=== PATIENT | female | born 1965 | race Caucasian/White ===

== ENCOUNTER 2024-03-26 23:51 | Inpatient (IN) | payer OTHER, SELFPAY ==
[2024-03-26 17:51] VITALS: BMI 31.9
[2024-03-26 18:25] VITALS: BP 181/98
--- NOTE | 2024-03-26 18:27 | ED.PDOC.TRB ---
ED Provider Triage
-
Patient seen by provider in Triage?: Seen in Triage
*Initial assessment in triage to expedite evaluation/workup
59 yo female presenting with shortness of breath on and off x 3 weeks. Finished prednisone taper 7-10 days ago. Reports SOB and fogginess, no chest pain. Using nebs at home without relief. Former smoker.
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
On Trelegy 200 daily
She is tachypneic with conversational dyspnea, room air sats 77%. Grossly diminished lung sounds with quiet expiration wheezing.
Will order for nebs, labs, CXR
[2024-03-26 19:24] LABS: Blood Urea Nitrogen 6 mg/dl (7-17); Calcium 9.1 mg/dl (8.4-10.2); Carbon Dioxide 26 mmol/L (22-30); Chloride 81 mmol/L (98-107); Glucose 116 mg/dl (70-99); eGFR > 60.00
[2024-03-26 19:28] LABS: Sodium 118 mmol/L (135-145)
[2024-03-26 19:46] VITALS: BP 171/97
[2024-03-26] MEDS: ATROVENT NEBULES 1 MG INH (19:51)
[2024-03-26] MEDS: VENTOLIN NEBULES 10 MG INH (19:51)
[2024-03-26 20:00] VITALS: BP 163/78
--- NOTE | 2024-03-26 20:09 | ED.GENMED ---
History of Present Illness
General
Chief Complaint: Breathing Problem
Source: patient
Time Seen by Provider: 03/26/24 19:40
Travel History
Have you had any contact with someone who has COVID-19?: No
Do you have any symptoms of coronavirus? Fever > 100 degrees, chills, cough, shortness of breath, sore throat, loss of taste or smell, muscle aches, or headache?: No
History of Present Illness
History of Present Illness:
59-year-old female presents to the emergency room complaining of shortness of breath. Patient has been feeling short of breath for the past couple weeks. She was seen by her primary care doctor and started on a course of steroids which she
completed about a week ago. She is also been using her rescue inhaler of albuterol without much improvement. Today the patient was feeling so short of breath that she decided she had to come to the emergency room. Symptoms are worse with minimal
exertion. She denies any chest pain or pain with deep inspiration. She denies any recent travel. Patient had a mildly productive cough 2 weeks ago but that production went away. No fever.
Past History
Past History
ED Past Medical History: HTN
ED Past Surgical History: Appendectomy and Orthopedic
Social History
Tobacco: Smoker
Employment: Employed
Family History
Family History: Negative Early CAD
Phy Exam
Physical Exam
Physical Exam:
General: Awake, Alert, Oriented X3. Patient seen after coming out of the bathroom and she is noted to be profoundly cyanotic..
Vitals: Tachycardic, initial pulse ox 60% with good pleth
Head: Atraumatic
Eyes: Pupils equal, EOMI
Throat: Airway intact, no exudates
Neck: Trachea midline
Lungs: Expiratory wheezing, decreased breath sounds bilaterally
Heart: Regular rate, no murmurs
Abd: Soft, Nontender, No pulsatile mass
Neuro: Nonfocal
Skin: Warm, dry, no rash, cyanosis
Extremities: pulses equal b/l, 1+ edema
Scores
Heart Failure Risk
Heart Failure Risk Score: Not Applicable
Course
Orders/Labs/Results
Orders:
Orders
03/26/24 18:29
Albuterol Sulfate [Ventolin Nebules] 10 mg INH R NOW STA
Ipratropium Nebs [Atrovent Nebules] 1 mg INH R NOW STA
CR Chest - 2 Views Urgent
Comment:
Reason For Exam: SOB
03/26/24 18:44
Basic Metabolic Panel Urgent
03/26/24 19:54
Ipratropium Nebs [Atrovent Nebules] 0.5 mg .ROUTE .STK-MED ONE
Ipratropium/Albuterol Sulfate [Duoneb] 3 ml INH R NOW ONE
Ipratropium/Albuterol Sulfate [Duoneb] 3 ml INH R NOW STA
03/26/24 19:55
Dexamethasone Sod Phosphate [Decadron] 10 mg IV NOW STA
03/26/24 20:03
Complete Blood Count/With Diff Urgent
D-Dimer Urgent
Osmolality, Random Urine Urgent
Date Specimen was Collected: 03/26/24
Time Specimen was Collected: 19:57
Potassium Urgent
Urinalysis Urgent
Date Specimen was Collected: 03/26/24
Time Specimen was Collected: 19:57
Urine Sodium Urgent
Date Specimen was Collected: 03/26/24
Time Specimen was Collected: 19:57
03/26/24 20:12
Electrocardiogram (*1) Urgent
Reason for Study: Shortness of Breath
EKG- Treatment ONCE
03/26/24 21:00
3% Sodium Chloride 250 ml [Sodium Chloride 3%] 250 ml IV ONCE
03/26/24 21:08
CT Chest Pe Study Urgent
Comment:
Reason For Exam: severe hypoxia
03/26/24 22:48
Azithromycin 500 mg/250 ml [Zithromax Infusion] 500 mg in 250 ml IV NOW
03/26/24 22:53
Add On- LAB Stat
Tests Added?: BNP
03/26/24 23:16
Admit/Transfer Patient As Directed
Co-Sign Provider:
Level of Care: Inpatient admission
Assign to:: Telemetry
Physician / Group: dolores
Diagnosis: COPD exacerbation
Reason for Telemetry: Arrhythmia
Date to Stop Telemetry: 03/29/24
Time to Stop Telemetry: 11:00
Reason for Hospitalization: copd exacerbation
Expected length of stay greater than two midnights?: Yes
ELOS- Estimated Length of Stay in days: 3
I certify the patient meets the requirements for IP care: Yes
03/26/24 23:17
Code Status As Directed
Resuscitation Status: Full Code
03/26/24 23:22
NEPHROLOGY CONSULT Routine
Consulting Provider: Acosta Juarez
Was physician already notified: Yes
03/26/24 23:40
Basic Metabolic Panel Routine
COVID-19 Antigen Stat
Source: Nasal Swab
NT-proBNP Routine
03/27/24 00:24
Acetaminophen [Tylenol] 650 mg PO Q4HPRN PRN
Ipratropium/Albuterol Sulfate [Duoneb] 3 ml INH R Q4HPRN PRN
03/27/24 00:24
Respiratory Culture/Gram Stain Routine
PALMER Source: Sputum
Specimen Description:
Activity As Directed
Activity Level: As Tolerated
Intake/ Output As Directed
Frequency: Per unit guidelines
Vital Signs As Directed
Frequency: Per unit guidelines
Copd Education [RESP] Routine
O2 Therapy [RESP] Routine
Titrate/Wean O2 to maintain O2 sat greater than (%): 92
Special Instructions: adjust, if necessary, to avoid hyperoxia in CO2 retainers.
Use High Flow O2 if necessary
Rx Pep / [place] [RESP] Routine
DX Deep Vein Thrombosis Video Routine
03/27/24 Breakfast
Cholesterol Lowering
Cholesterol Lowering: Sodium, 2 Gram
Basic Metabolic Panel IN AM
Complete Blood Count/With Diff IN AM
Dexamethasone Sod Phosphate [Decadron] 4 mg IV Q8H
03/27/24 08:00
Diltiazem Extended Release [Cardizem Cd] 240 mg PO DAILY
Guaifenesin [Mucinex] 600 mg PO Q12
Ipratropium/Albuterol Sulfate [Duoneb] 3 ml INH R QID
Lisinopril [Zestril] 10 mg PO DAILY
Tiotropium [place] 2.5 Mcg [Spiriva Respimat 2.5 Mcg] 2 puff INH R DAILY
03/27/24 18:00
Enoxaparin Sodium [Lovenox] 40 mg SC QPM
03/27/24 20:00
Azithromycin 500 mg/250 ml [Zithromax Infusion] 500 mg in 250 ml IV Q24H
03/28/24 06:00
Basic Metabolic Panel IN AM
Complete Blood Count/With Diff IN AM
03/29/24 06:00
Basic Metabolic Panel IN AM
Complete Blood Count/With Diff IN AM
03/29/24 11:00
DC Protocol for Telemetry ONCE
03/30/24 06:00
Basic Metabolic Panel IN AM
Complete Blood Count/With Diff IN AM
03/31/24 06:00
Basic Metabolic Panel IN AM
Complete Blood Count/With Diff IN AM
Abnormal Lab Results
03/26/24 03/26/24 03/26/24
18:44 20:03 23:40
RBC 5.88 H 10^6/uL
(4.20-5.40)
Hgb 20.6 H* g/dL
(12.0-16.0)
Hct 57.0 H %
(37.0-47.0)
MCH 35.0 H pg
(27.0-31.0)
Absolute Monos (auto) 1.0 H 10^3/uL
(0.1-0.6)
Immature Gran % 0.6 H %
(0-0.5)
Lymphocytes % 17.2 L %
(20.5-51.1)
Monocytes % 13.7 H %
(1.7-9.3)
D-Dimer 0.98 H ug/mlFEU
(0.00-0.50)
Sodium 118 L* mmol/L 126 L D mmol/L
(135-145) (135-145)
Chloride 81 L mmol/L 88 L mmol/L
(98-107) (98-107)
BUN 6 L mg/dl 5 L mg/dl
(7-17) (7-17)
Creatinine 0.4 L mg/dL 0.4 L mg/dL
(0.6-1.0) (0.6-1.0)
Glucose 116 H mg/dl 142 H mg/dl
(70-99) (70-99)
Urine Ketones Trace A
(Negative)
Urine Osmolality 49 L mOsm/kg
(300-900)
Urine Sodium 8 L mmol/L
(30-90)
03/26/24 20:03
03/26/24 23:40
Vital Signs
Initial and Last Documented VS:
Initial Vital Signs
Temp Pulse Resp BP Pulse Ox
98.3 F 98 18 181/98 79
03/26/24 18:25 03/26/24 18:25 03/26/24 18:25 03/26/24 18:25 03/26/24 18:25
Last Documented Vital Signs
Temp Pulse Resp BP Pulse Ox
98.3 F 98 20 163/78 90
03/26/24 18:25 03/26/24 23:45 03/26/24 23:45 03/26/24 20:00 03/26/24 23:45
MDM/Problems Addressed
Differential Diagnosis Includes:
COPD exacerbation, anemia, pulmonary embolism, pneumonia
MDM/Problems Addressed:
Patient presents with significant hypoxia and shortness of breath. Patient has been using rescue inhaler without much improvement at home. Here the patient was placed on nasal cannula oxygen and received neb treatments as well as IV steroids. She
did have some improvement but continued to have significant wheezing. CT of the chest was performed given her profound hypoxia which showed evidence of pulmonary hypertension. No PE. No infiltrate. Patient will require hospitalization for
further evaluation and management, supplemental oxygen, careful monitoring.
Chronic conditions affecting care: COPD
*Radiology
Radiology exam reviewed: radiology read reviewed
*Pulse Oximetry
Patient hypoxic: yes
*EKG
Interpreted by ED Provider?: Yes
Interpretation: abnormal
Heart Rate: 85
Rate: normal
Rhythm: sinus
[place]: right axis deviation
Ischemia: T-wave inversion (Inferior and anterior leads)
*Agricultural Inspector Interpretation
Rate: normal
Interpretation: normal
Rhythm: sinus
*Critical Care Note
Total Time (30-74mins, 75-104mins- exclusive of procedures): 35 min
comment:
Critical care statement: A total of 35 minutes of critical care time was provided for this patient. This includes management of unstable vital signs, evaluation of the patient at bedside, reviewing the patient's pertinent medical records, discussion
with consultants, review of old EKGs and review of pertinent medical records. This time with separate from time utilized to perform the aforementioned documented procedures
ED Attending Note
-
Portions of this chart may have been created with voice recognition software.� Occasional wrong word or��sound alike� substitutions may have occurred due to the inherent limitations of voice recognition software.
Discharge Plan
Departure
Patient Disposition: Admit
Date of Disposition: 03/26/24
Time of Disposition: 22:47
Admit to: IMU
Presentation/result/management discussed w/ accepting MD/DO: Hospitalist
Condition: Fair
Discharge Problem:
Hypoxia, COPD exacerbation, Acute hyponatremia
Interventions
Interventions:
*Risk Screen - Suicide Last Done: 03/26/24 22:50
*Neglect/Abuse Screening Last Done: 03/26/24 22:50
ED- Fall Risk Assessment Last Done: 03/26/24 20:03
*ED COVID-19 Vaccine History Last Done: 03/26/24 18:25
ED- Cardiac Assessment Last Done: 03/26/24 20:03
ED- Pulmonary Assessment Last Done: 03/26/24 20:03
[2024-03-26] MEDS: DECADRON 10 MG IV (20:11)
[2024-03-26 20:17] LABS: Urine Albumin Trace (Neg - Trace); Urine Bilirubin Negative (Negative); Urine Character Clear (Clear); Urine Color Straw; Urine Glucose Negative (Negative); Urine Ketone Trace (Negative); Urine Leukocyte Negative (Negative); Urine Nitrite Negative (Negative); Urine Occult Blood Negative (Negative); Urine Urobilinogen Negative (Neg - 1+)
[2024-03-26 20:29] LABS: % Basophils 0.7 % (0-2); % Eosinophils 0.7 % (0-6); % Immature Granulocytes 0.6 % (0-0.5); % Lymphocytes 17.2 % (20.5-51.1); % Monocytes 13.7 % (1.7-9.3); % Neutrophils 67.1 % (42.2-75.2); Absolute Basophils 0.1 10^3/uL (0-0.2); Absolute Eosinophils 0.1 10^3/uL (0-0.7); Absolute Lymphocytes 1.2 10^3/uL (1.2-3.4); Absolute Neutrophils 4.6 10^3/uL (1.4-6.5); D-Dimer 0.98 ug/mlFEU (0.00-0.50); Mean Corp Hgb Conc. 36.1 g/dL (33.0-37.0); Mean Corpuscular Volume 96.9 fL (81.0-99.0); Mean Platelet Volume 9.2 fL (7.4-10.4); Nucleated Red Blood Cells % 0 %; Platelet Count 143 10^3/uL (130-400); Red Blood Cell Count 5.88 10^6/uL (4.20-5.40); Red Cell Dist. Width 13.5 % (11.5-14.5); White Blood Cell Count 6.9 10^3/uL (4.8-10.8)
[2024-03-26 20:35] LABS: Hemoglobin 20.6 g/dL (12.0-16.0)
[2024-03-26 20:39] LABS: Potassium 4.5 mmol/L (3.5-5.1)
[2024-03-26 20:45] LABS: Urine Sodium 8 mmol/L (30-90)
[2024-03-26 20:50] LABS: Osmolality Urine 49 mOsm/kg (300-900)
[2024-03-26] MEDS: SODIUM CHLORIDE 3% 250 IV (21:09)
--- NOTE | 2024-03-26 22:48 | HPS.HSE ---
Family Physician
-
Family Physician: Nikhil Maher
Chief Complaint
-
sob
History of Present Illness
59-year-old female with PMH for HTN, atrial fib, COPD, athma, HTN, presents to the emergency room complaining of shortness of breath. Patient has been feeling intermittent short of breath for the past two weeks. her sob gets worse with higher
humidity outside/ since last , she is being very anxious and sob. her sob worse with activity. stated orthopnea. denied chest pain. stated non productive cough for few weeks. today it was productive with yellow sputum. denied fever, chill,
runny nose, congestion. denied abdominal pain,n,v, d. denied dysuria or hematuria. She was seen by her primary care doctor and started on a course of steroids which she completed about a week ago. She is also been using her rescue inhaler of
albuterol without much improvement. Today the patient was feeling so short of breath that she decided she had to come to the emergency room.
chest x ray with Mild congestive heart failure.Chronic obstructive pulmonary disease with centrilobular emphysema
chest CT with no pulmonary embolism
There is centrilobular emphysema
There is prominence of the main pulmonary artery suggesting possible pulmonary artery hypertension
There is a new 4 mm probably benign subpleural pulmonary nodule in the right upper lobe
received nebs, zithro, steroids in ER. admitting for further management.
Medical History
Past Medical History
Past Medical History: Reports Other
Additional Past Medical History:
Paroxysmal A-fib
COPD
Hypertension
Pericardial effusion
Past Surgical History: Reports Other
Additional Past Surgical History:
Bilateral ACL repair appendectomy
Social History
Tobacco: Former Smoker
Alcohol: Occasional
Drug: None
Employment: Employed
Family History
Family History: Not pertinent
Allergies / Home Medications
Allergies reflects when Allergies were last updated in [facility].
Home Medications with original date entered in [facility]
Allergy/Medication List:
Allergies
Allergy/AdvReac Type Severity Reaction Status Date / Time
No Known Allergies Allergy Unverified 03/26/24 18:27
Home Medications
albuterol sulfate 90 mcg/actuation aerosol inhaler 2 puff inhalation R Q4HPRN PRN sob 07/28/18
lisinopril 10 mg tablet 10 mg PO DAILY 07/28/18
diltiazem HCl 240 mg capsule,extended release 24 hr 240 mg PO DAILY ##30 08/03/18
cetirizine 10 mg tablet (Zyrtec) 10 mg PO DAILY 03/26/24
cetirizine 10 mg tablet (Zyrtec) 10 mg PO HS PRN allergies 03/26/24
fluticasone fur. 200 mcg-umeclid 62.5 mcg-vilant 25 mcg inhalat.powder (Trelegy Ellipta) 1 inh inhalation R DAILY 03/26/24
guaifenesin 600 mg tablet, extended release 12 hr (Mucus Relief ER) 600 mg PO BID 03/26/24
Review of Systems
-
Constitutional: Reports No Symptoms
EENT: Reports No Symptoms
Respiratory: Reports Cough and Trouble Breathing
Cardiac: Reports No Symptoms
Abdomen/GI: Reports No Symptoms
: Reports No Symptoms
Musculoskeletal: Reports No Symptoms
Skin: Reports No Symptoms
Neurological: Reports No Symptoms
Endocrine: Reports No Symptoms
Hematologic/Lymphatic: Reports No Symptoms
Psych: Reports No Symptoms
Physical Exam
Vital Signs
Vital Signs
Temp Pulse Resp BP Pulse Ox
98.3 F 91 26 163/78 91
03/26/24 18:25 03/26/24 22:35 03/26/24 22:35 03/26/24 20:00 03/26/24 22:35
Physical Exam
General: Well Developed, Well Nourished and No Apparent Distress
HEENT: NormoCephalic, Moist mucous membranes and Atraumatic
Respiratory: Clear and Wheezes
Cardiac: S1/S2 and Regular Rhythm; No Murmur or Rub
GI: Soft, Non Tender, Non Distended and Normal Bowel Sounds; No Organomegaly
Rectal: Deferred by Provider
Musculoskeletal: No Clubbing, No Cyanosis and No Edema
Skin: No Rash
Neuro: AO x 3 and Nonfocal/grossly intact
Psych: Calm
Laboratory Results
-
03/26/24 20:03
Laboratory Results
Total Bilirubin Cancelled 03/26/24 18:44
AST Cancelled 03/26/24 18:44
ALT Cancelled 03/26/24 18:44
Alkaline Phosphatase Cancelled 03/26/24 18:44
Data Reviewed
-
Diagnostic Radiology: Report Reviewed by me
CT Scan: Report Reviewed by me
Lab Data: Labs Reviewed by me
Impression/Plan
-
# Severe short of breath/acute hypoxic respiratory failure likely COPD exacerbation
-Chest x-ray with mild congestive heart failure, COPD with centrilobular emphysema
-CT chest pending There is no pulmonary embolism.There is centrilobular emphysema.There is prominence of the main pulmonary artery suggesting possible pulmonary artery hypertension.There is a new 4 mm probably benign subpleural pulmonary nodule in
the right upper lobe
-albuterol continued
-breo continued
-Decadron continued
-continue supplemental oxygen to keep sat >92
-wean as tolerated
# Hyponatremia likely hypovolemic
-Sodium 118
-Hypertonic saline started in ER
-BMP in a.m.
-Nephrology consulted
# Hemoconcentration likely dehydration
-Hemoglobin 20.6, hematocrit 57.0
-ctm
# Elevated D-dimer chronic
-D-dimer 0.98
#hxt of paroxysmal atrial fib
-EKG with NSR
-Cardizem continued
#essential htn
-BP stable
-lisinopril continued
#DVT prophylaxis
-Lovenox
#CODE status
-full code
--- NOTE | 2024-03-26 23:22 | W.PN.UPDATE ---
Update Note
Progress Note Update
This is an addendum to the H&P written by VIRTUALIZATION ARCHITECT Faith Sandoval on 03/26/2024. Patient seen and examined independently with VIRTUALIZATION ARCHITECT.
59-year-old female past medical history of asthma/COPD, hypertension, brief paroxysmal atrial fibrillation in the past not on anticoagulation, prior pericardial effusion, presenting with shortness of breath for past few weeks associated with
productive cough progressing for the past several weeks despite being treated with steroids week ago and using rescue inhaler. Denies chest pain.
CT PE shows no evidence of pulm embolism. There is centrilobular emphysema and prominence of the main pulmonary suggesting possible pulmonary artery hypertension.
Labs show severe hyponatremia with sodium of 118. Hemoglobin of 20 from 16 previously.
#Hypoxic respiratory insufficiency secondary to COPD/asthma exacerbation. Patient severe bilateral wheezing on examination. Continue dexamethasone, DuoNebs, azithromycin.
# Possible mild pulmonary artery hypertension on CT imaging. Given that primary presentation is due to COPD exacerbation, do not think inpatient echo necessary.
# Severe hyponatremia. Patient has not increased fluid intake although urine osmolality of 49, sodium of 8 suggesting hypovolemia as she is not drinking excessive amounts of fluid. Nephrology recommended hypertonic saline. Does not appear
hypovolemic however.
# Polycythemia likely due to chronic hypoxia from COPD, possibly exacerbated by hypovolemia.
[2024-03-26] MEDS: ZITHROMAX INFUSION 250 IV (23:31)
[2024-03-26 23:51] VITALS: BMI 31.9
[2024-03-27] VITALS (16 sets, daily range): BP systolic 104–146; BP diastolic 55–80; BMI 31.7
[2024-03-27 00:04] LABS: Blood Urea Nitrogen 5 mg/dl (7-17); Calcium 9.4 mg/dl (8.4-10.2); Carbon Dioxide 25 mmol/L (22-30); Chloride 88 mmol/L (98-107); Estimated Creatinine Clearance 99 ml/min; Glucose 142 mg/dl (70-99); Potassium 4.4 mmol/L (3.5-5.1); Sodium 126 mmol/L (135-145); eGFR > 60.00
[2024-03-27 00:08] LABS: COVID-19 Antigen Negative (Negative)
[2024-03-27 00:12] LABS: NT-proBNP 894 pg/ml
[2024-03-27] MEDS: DECADRON 4 MG IV ×3 (05:56→22:44)
[2024-03-27 06:22] LABS: % Basophils 0.6 % (0-2); % Immature Granulocytes 0.6 % (0-0.5); % Lymphocytes 7.9 % (20.5-51.1); % Monocytes 1.8 % (1.7-9.3); % Neutrophils 89.1 % (42.2-75.2); Absolute Lymphocytes 0.3 10^3/uL (1.2-3.4); Absolute Monocytes 0.1 10^3/uL (0.1-0.6); Absolute Neutrophils 3.1 10^3/uL (1.4-6.5); Hematocrit 58.4 % (37.0-47.0); Mean Corp Hgb Conc. 34.8 g/dL (33.0-37.0); Mean Corpuscular Hgb 34.6 pg (27.0-31.0); Mean Corpuscular Volume 99.5 fL (81.0-99.0); Mean Platelet Volume 9.3 fL (7.4-10.4); Nucleated Red Blood Cells % 0 %; Platelet Count 146 10^3/uL (130-400); Red Blood Cell Count 5.87 10^6/uL (4.20-5.40); Red Cell Dist. Width 13.7 % (11.5-14.5); White Blood Cell Count 3.4 10^3/uL (4.8-10.8)
[2024-03-27 06:25] LABS: Hemoglobin 20.3 g/dL (12.0-16.0)
[2024-03-27 06:52] LABS: Blood Urea Nitrogen 5 mg/dl (7-17); Calcium 8.8 mg/dl (8.4-10.2); Carbon Dioxide 27 mmol/L (22-30); Chloride 92 mmol/L (98-107); Estimated Creatinine Clearance 99 ml/min; Glucose 161 mg/dl (70-99); Sodium 129 mmol/L (135-145); eGFR > 60.00
[2024-03-27] MEDS: SYMBICORT 160/4.5 MCG INHALER 2 PUFF INH ×2 (08:31→19:44)
[2024-03-27] MEDS: SPIRIVA RESPIMAT 2.5 MCG 2 PUFF INH (08:31)
[2024-03-27] MEDS: VENTOLIN NEBULES 1.25 MG INH ×4 (08:32→19:44)
--- NOTE | 2024-03-27 08:48 | W.PN.HOSP.TC ---
Today's Communication/Plan
-
IV steroids
ECHO
Heme eval
Serum osm
Check TSH
Assessment / Plan
Assessment / Plan
59-year-old female presented to the hospital with shortness of breath. She has had shortness of breath intermittently for the past 2 weeks. It is getting worse she also has had a productive cough with yellow sputum. She was seen by primary who
treated her with a short course of steroids which she completed a week ago. She has been using her rescue inhaler also.
CT chest-no PE centrilobular emphysema. Prominence of main pulmonary artery suggesting pulmonary artery hypertension, 4 mm benign subpleural pulmonary nodule in the right upper lobe.
CVS: S1-S2 normal
Chest: B/L Wheezes,
Abdomen: Soft, NT / Bowel sounds present
Extremities: No edema, normal pulses
TESTER COMPRESSED GASES: Non focal exam
# Shortness of breath/acute hypoxic respiratory insufficiency
Centrilobular emphysema per CT scan
Asthma/COPD exacerbation
Likely precipitated by URI
She lives in a trailer and does not have air conditioning set up yet.
Check sputum cultures
Continue albuterol
On trilogy Ellipta as outpatient
Decadron
Wean oxygen as tolerated
Also check ECHO
#Hyponatremia
Sodium 118 on presentation
Check serum osmolality and repeat urine osmolality
Status post hypertonic saline in the ER
Follow sodium-improving
Fluid restriction
Nephrology consulted
# Polycythemia
Erythropoietin level
Leukopenia also noted
Possibly secondary reasons due to COPD?
Consult hematology oncology
# Hyperglycemia likely secondary to steroids
# History of paroxysmal atrial fibrillation
EKG sinus rhythm
Check trop,
Check ECHO
Continue Cardizem
Patient is not on anticoagulation as outpatient
She stated that she did not have money to follow-up with cardiology.
I have reached out to [facility] cardiology , I am being told that the patient suffered from [facility] they can be seen in the office.
# Hypertension-continue lisinopril
# History of Pericardial effusion-not seen on current CT
# Chronically elevated D-dimer-CT negative for PE
# Qb-dsrrck-gwuf 6 years ago
# DVT prophylaxis-Lovenox
# Full code
Patient requested to keep the cost of hospitalization lower as possible.
She is aware that not following up with physicians is compromising her health .
She is planning to follow-up with [facility].
Patient is very appreciative of her care here and our input.
D/W Cardiology
D/W heme
Anticipated Discharge: 24 - 48 hours
Subjective/Interval History
-
Date of Service: March 27, 2024
Objective Data
-
Labs:
Laboratory Results
03/26/24 03/27/24
23:40 05:59
WBC 3.4 L
Hgb 20.3 H*
Hct 58.4 H
Plt Count 146
Sodium 126 L D 129 L
Potassium 4.4 5.0
Chloride 88 L 92 L
Carbon Dioxide 25 27
BUN 5 L 5 L
Creatinine 0.4 L 0.3 L
Glucose 142 H 161 H
Calcium 9.4 8.8
Vital Signs:
Vital Signs
Temp Pulse Resp BP Pulse Ox
98.3 F 94 28 128/73 92
03/26/24 18:25 03/27/24 08:35 03/27/24 08:35 03/27/24 08:00 03/27/24 08:35
[2024-03-27] MEDS: MUCINEX 600 MG PO ×2 (09:50→20:43)
[2024-03-27] MEDS: ZESTRIL 10 MG PO (09:50)
[2024-03-27] MEDS: CARDIZEM CD 240 MG PO (09:50)
--- NOTE | 2024-03-27 09:58 | CON.ONC ---
Impression
Impression
- erythrocytosis
- asthma/COPD
- imaging c/f PAH
Plan
Plan
- CBC with new erythrocytosis with hgb 20.3 g/dl, Hct 58.4%. Prior labs in 2018 showed high normal hgb in 15-16 range. WBC , plts normal. Pt denies vasomotor symptoms. No hx of arterial or venous clots however imaging suggestive for PAH of unclear
etiology. Consider pulmonary consult.
- pt no longer active smoker. Denies hx of congenital heart disease. echo in 2018 w/ small pericardial effusion, mild LVH. consider repeating.
- check epo level, JAK2 [id number] mutation.
- without symptoms c/f acute ischemic event will hold off on phlebotomy. However recommend starting low dose ASA 81 mg daily until primary PV ruled out. pt should see hematology in the office to review pending labs and consider role for routine
therapeutic phlebs for secondary PV if JAK2 negative.
Patient History
History of Present Illness
Desi is a 59-year-old female with PMH for HTN, paroxysmal atrial fib not on AC, COPD, asthma, HTN who presented to the emergency room complaining of shortness of breath with orthopnea, dry cough. chest x ray with Mild congestive heart
failure.Chronic obstructive pulmonary disease with centrilobular emphysema. chest CT with no pulmonary embolism, centrilobular emphysema, prominence of the main pulmonary artery suggesting possible pulmonary artery hypertension. Hematology
consulted for erythrocytosis.
CBC on admission showed hgb 20.6 with hct 57%. WBC was normal at 6.9, plts 143,000. Last available CBC in our systemic from July 2018 showed high normal hgb in ~ 16.0 g/dl range. She is a former smoker, quit 2018. Denies hx of renal transplant,
congenital heart disease, undiagnosed STEPHEN. She does not take supplemental androgens. Labs on admission also notable for Na 118 thought to be related to hypovolemia. However despite IVFs Hgb today 20.3. Denies CONCEPCION, chest pain, rash, palpitations,
itching after showers, erythema of hands or feet. She has no hx of MN, stroke or venous clots.
Past-Medical/Surgical History
- HTN
- asthma/COPD
Patient Medication
�Medication �Instructions �Recorded �Confirmed �Last Taken �Type
albuterol sulfate 90 mcg/actuation 2 puff inhalation R Q4HPRN PRN sob 07/28/18 03/26/24 07/28/18 History
aerosol inhaler
lisinopril 10 mg tablet 10 mg PO DAILY 07/28/18 03/26/24 03/26/24 History
diltiazem HCl 240 mg 240 mg PO DAILY ##30 08/03/18 03/26/24 03/26/24 Rx
capsule,extended release 24 hr
cetirizine 10 mg tablet (Zyrtec) 10 mg PO DAILY 03/26/24 03/26/24 03/26/24 History
cetirizine 10 mg tablet (Zyrtec) 10 mg PO HS PRN allergies 03/26/24 03/26/24 Unknown History
fluticasone fur. 200 mcg-umeclid 1 inh inhalation R DAILY 03/26/24 03/26/24 03/26/24 History
62.5 mcg-vilant 25 mcg
inhalat.powder (Trelegy Ellipta)
guaifenesin 600 mg tablet, 600 mg PO BID 03/26/24 03/26/24 03/26/24 History
extended release 12 hr (Mucus
Relief ER)
Active Medications
Generic Name Dose Route Start Last Admin
Trade Name Freq PRN Reason Stop Dose Admin
Acetaminophen 650 mg 03/27/24 00:24
Acetaminophen 325 Mg Tablet PO 04/24/24 00:23
Q4HPRN PRN
mild pain or temp >/= 100.4 F
Albuterol Sulfate 1.25 mg 03/27/24 01:01
Albuterol Nebs 1.25 Mg/3 Ml Ampul INH
R Q4HPRN PRN
sob
Protocol
Albuterol Sulfate 1.25 mg 03/27/24 08:00 03/27/24 08:32
Albuterol Nebs 1.25 Mg/3 Ml Ampul INH 1.25 mg
R QID NICKIE Administration
Protocol
Budesonide/Formoterol Fumarate 2 puff 03/27/24 08:00 03/27/24 08:31
Symbicort Inhaler 160/4.5 INH 04/24/24 07:59 2 puff
R BID NICKIE Administration
Dexamethasone Sodium Phosphate 4 mg 03/27/24 06:00 03/27/24 05:56
Dexamethasone 4 Mg/Ml 1 Ml Vial IV 04/24/24 05:59 4 mg
Q8H NICKIE Administration
Diltiazem HCl 240 mg 03/27/24 08:00 03/27/24 09:50
Diltiazem 240 Mg Extended Release (24 H) Capsule PO 04/24/24 07:59 240 mg
DAILY NICKIE Administration
Enoxaparin Sodium 40 mg 03/27/24 18:00
Enoxaparin Sodium 40 Mg/0.4 Ml Syringe SC 04/24/24 17:59
QPM NICKIE
Guaifenesin 600 mg 03/27/24 08:00 03/27/24 09:50
Guaifenesin 600 Mg Extended Release Tablet PO 04/24/24 07:59 600 mg
Q12 NICKIE Administration
Azithromycin 500 mg in 250 mls @ 250 mls/hr 03/27/24 20:00
Zithromax Infusion IV
Q24H NICKIE
Lisinopril 10 mg 03/27/24 08:00 03/27/24 09:50
Lisinopril 10 Mg Tablet PO 04/24/24 07:59 10 mg
DAILY NICKIE Administration
Sodium Chloride 0 flush 03/27/24 01:00
Sodium Chloride 0.9% (Flush) Syringe IV 04/24/24 00:59
PER PROTOCOL NICKIE
Sodium Chloride 0 flush 03/27/24 01:00
Sodium Chloride 0.9% (Flush) Syringe IV 04/24/24 00:59
PER PROTOCOL NICKIE
Tiotropium Lizemores 2 puff 03/27/24 08:00 03/27/24 08:31
Tiotropium (Spiriva Respimat) 2.5 Mcg Inhaler INH 04/24/24 07:59 2 puff
R DAILY NICKIE Administration
Review of Systems
-
History Source: Patient
Constitutional: Denies Weight Loss
Respiratory: Reports Trouble Breathing
Cardiac: Reports Orthopnea; Denies Chest Pain or Palpitations
GI: Denies Abdominal Pain
Skin: Denies Itching or Rash
Neuro: Denies Headache or Numbness
Hematologic/Lymphatic: Denies Bleeding or Bruising
Physical Exam
-
General: Well Developed, Well Nourished, No Apparent Distress and Other (possible facial plethora)
HEENT: Negative Jaundice
Cardiology: Normal Sinus Rhythm
Pulmonary: Clear; Negative Rhonchi
GI: Soft; Negative Distended
Musculoskeletal: No Edema
Neurology: Non Focal
Hematologic / Lymphatic: No Lymphadenopathy and No Petechiae
Labs
Lab Results
WBC 3.4 10^3/uL (4.8-10.8) L 03/27/24 05:59
RBC 5.87 10^6/uL (4.20-5.40) H 03/27/24 05:59
Hgb 20.3 g/dL (12.0-16.0) H* 03/27/24 05:59
Hct 58.4 % (37.0-47.0) H 03/27/24 05:59
MCV 99.5 fL (81.0-99.0) H 03/27/24 05:59
MCH 34.6 pg (27.0-31.0) H 03/27/24 05:59
MCHC 34.8 g/dL (33.0-37.0) 03/27/24 05:59
RDW 13.7 % (11.5-14.5) 03/27/24 05:59
Plt Count 146 10^3/uL (130-400) 03/27/24 05:59
MPV 9.3 fL (7.4-10.4) 03/27/24 05:59
Abs Immat Gran (auto) 0.0 10^3/uL (0-0.05) 03/27/24 05:59
Absolute Neuts (auto) 3.1 10^3/uL (1.4-6.5) 03/27/24 05:59
Absolute Lymphs (auto) 0.3 10^3/uL (1.2-3.4) L 03/27/24 05:59
Absolute Monos (auto) 0.1 10^3/uL (0.1-0.6) 03/27/24 05:59
Absolute Eos (auto) 0.0 10^3/uL (0-0.7) 03/27/24 05:59
Absolute Basos (auto) 0.0 10^3/uL (0-0.2) 03/27/24 05:59
Immature Gran % 0.6 % (0-0.5) H 03/27/24 05:59
Neutrophils % 89.1 % (42.2-75.2) H 03/27/24 05:59
Lymphocytes % 7.9 % (20.5-51.1) L 03/27/24 05:59
Monocytes % 1.8 % (1.7-9.3) 03/27/24 05:59
Eosinophils % 0.0 % (0-6) 03/27/24 05:59
Basophils % 0.6 % (0-2) 03/27/24 05:59
Creatinine 0.3 mg/dL (0.6-1.0) L 03/27/24 05:59
Vital Signs
Vital Signs
Temp Pulse Resp BP Pulse Ox
98.3 F 94 28 128/73 92
03/26/24 18:25 03/27/24 08:35 03/27/24 08:35 03/27/24 08:00 03/27/24 08:35
[2024-03-27 10:39] LABS: TSH 0.74 uIU/ml (0.47-4.68)
--- NOTE | 2024-03-27 10:50 | W.CON.NEPH ---
Consultation
-
Date/Time Consultation Requested: 03/26/24 2350
Date/Time Consultation Performed: 03/27/24 0930
Requesting Provider: Taylor Vazquez
Performing Provider: Anny Branham
Reason for Consultation: Hypoantremia
Medical History
-
Chief Complaint: SOB
History of Present Illness:
59-year-old female with PMH for HTN on lisinopril, diltiazem, atrial fib pm CCB, COPD, athma on nebs and inhalers trelegy, presents to the emergency room complaining of shortness of breath on 03/26. Patient has been feeling intermittent short of
breath for the past two-three weeks. her sob gets worse with higher humidity outside/ since 1week, her sob worse with activity and started orthopnea. denied chest pain, fever. has non productive cough for few weeks. denied abdominal pain,n,v, d.
denied dysuria or hematuria. She was seen by her primary care doctor and started on a course of steroids which she completed about a week ago. Since her symptoms did not improve presented to ER. Labs noted with sodium 118, U osmo 49, U na 8.
SHe takes Advil daily. Drinks 80-100 ounces of fluids per day. Recently her food intake is less with sob.
She had h/o hyponatremia in the past 2018 during her hospitalization for PNA, COPD flare, brief paroxysmal atrial fibrillation not on anticoagulation, pericardial effusion(improved). Later her sodium apparently was in normal range per pt.
chest x ray with Mild congestive heart failure.Chronic obstructive pulmonary disease with centrilobular emphysema, chest CT with no pulmonary embolism.
She was received 3% saline overnight and sodium upto 129 this am.
Past Medical History
Paroxysmal A-fib
COPD
Hypertension
Pericardial effusion
Past Surgical History: Other (Bilateral ACL repair appendectomy)
Social History
Tobacco: Former Smoker (quit 2018)
Alcohol: Occasional
Employment: Employed
Family History
Family History: Not Pertinent
Allergies / Home Medications
Allergy/AdvReac Type Severity Reaction Status Date / Time
No Known Allergies Allergy Unverified 03/26/24 18:27
�Medication �Instructions �Recorded �Confirmed �Type
albuterol sulfate 90 mcg/actuation 2 puff inhalation R Q4HPRN PRN sob 07/28/18 03/26/24 History
aerosol inhaler
lisinopril 10 mg tablet 10 mg PO DAILY 07/28/18 03/26/24 History
diltiazem HCl 240 mg 240 mg PO DAILY ##30 08/03/18 03/26/24 Rx
capsule,extended release 24 hr
cetirizine 10 mg tablet (Zyrtec) 10 mg PO DAILY 03/26/24 03/26/24 History
cetirizine 10 mg tablet (Zyrtec) 10 mg PO HS PRN allergies 03/26/24 03/26/24 History
fluticasone fur. 200 mcg-umeclid 1 inh inhalation R DAILY 03/26/24 03/26/24 History
62.5 mcg-vilant 25 mcg
inhalat.powder (Trelegy Ellipta)
guaifenesin 600 mg tablet, 600 mg PO BID 03/26/24 03/26/24 History
extended release 12 hr (Mucus
Relief ER)
Review of Systems
-
All complete 12 point ROS have been inquired and found negative other than stated in HPI
Physical Exam
Vital Signs
Vital Signs
Temp Pulse Resp BP Pulse Ox
98.3 F 94 28 128/73 92
03/26/24 18:25 03/27/24 08:35 03/27/24 08:35 03/27/24 08:00 03/27/24 08:35
Lab Results
WBC 3.4 10^3/uL (4.8-10.8) L 03/27/24 05:59
RBC 5.87 10^6/uL (4.20-5.40) H 03/27/24 05:59
Hgb 20.3 g/dL (12.0-16.0) H* 03/27/24 05:59
Hct 58.4 % (37.0-47.0) H 03/27/24 05:59
Plt Count 146 10^3/uL (130-400) 03/27/24 05:59
Sodium 129 mmol/L (135-145) L 03/27/24 05:59
Potassium 5.0 mmol/L (3.5-5.1) 03/27/24 05:59
Chloride 92 mmol/L (98-107) L 03/27/24 05:59
Carbon Dioxide 27 mmol/L (22-30) 03/27/24 05:59
BUN 5 mg/dl (7-17) L 03/27/24 05:59
Creatinine 0.3 mg/dL (0.6-1.0) L 03/27/24 05:59
eGFR > 60.00 03/27/24 05:59
Glucose 161 mg/dl (70-99) H 03/27/24 05:59
Calcium 8.8 mg/dl (8.4-10.2) 03/27/24 05:59
Hrl-X-Gjcqwisajti Pept 894 pg/ml 03/26/24 23:40
Albumin Cancelled 03/26/24 18:44
CT chest:
IMPRESSION:
There is no pulmonary embolism
There is centrilobular emphysema
There is prominence of the main pulmonary artery suggesting possible pulmonary artery hypertension
There is a new 4 mm probably benign subpleural pulmonary nodule in the right upper lobe
CXR;
IMPRESSION:
Mild congestive heart failure
Chronic obstructive pulmonary disease with centrilobular emphysema
Physical Exam
General: Awake, Alert, Oriented, AOx3, No Distress, Nontoxic and Other (flushed face)
HEENT: EOMI and Anicteric
Respiratory: Wheezes, Normal Excursion and Nonlabored Respirations
Cardiac: S1/S2 and Regular Rate/Rhythm
Breast: Deferred by me
Abdomen: Soft, Nontender and Nondistended
Musculoskeletal: No Cyanosis and No Edema
Skin: No Rash
Neuro: Nonfocal/Grossly Intact
Psych: Mood/afflect pleasant, Insight/judgement good and Appropriate
Data Reviewed
-
Radiology: Report Reviewed by me and Discussed with Patient
Labs: Labs Reviewed by me and Discussed with Patient
Assessment/Plan
-
IMP:
Acute hypoxic respiratory failure likely COPD exacerbation
Hyponatremia
polycythemia
hxt of paroxysmal atrial fib
essential htn
Former smoker
Hyperglycemia likely secondary to steroids
History of Pericardial effusion-not seen on current CT
PLan:
A/w son, copd flare
severe hyponatremia likely from high free water intake
appears euvolemic, not dehydrated-BNP 894
sodium improved to 129 from 118, s/p 3% saline overnight
recheck today if still increasing sodium likely start hypotonic fluids
maintain FR 48ounces/day
TSH normal
she may have underlying SIADH from COPD-recheck U osmo in am
BP stable
agree with heme consult for polycythemia
may benefit from lasix at d/c
d/w pt
[2024-03-27 11:14] LABS: Osmolality Serum 257 mOsm/kg (275-300)
[2024-03-27 12:32] LABS: Sodium 129 mmol/L (135-145)
[2024-03-27 12:40] LABS: Troponin I < 0.012 ng/ml
[2024-03-27 12:57] LABS: Glycohemoglobin (HgbA1c) 6.1 % (4.0-5.6)
--- NOTE | 2024-03-27 14:22 | PTCARENOTE ---
the pt was received from previous RN, the pt is resting in stretcher in the lowest position, side rails up x2, call masters within reach, HOB elevated, no s/s of distress, assessment performed in work list, admission performed in work list, VS WNL,
NSR, the pt is currently still on 4L NC Sp02 94%, c/o SOB on exertion, the pt is AAO, able to answer questions appropriately and able to move all extremities, the pt is ambulatory independently, the pt is compliant with hitting the call masters when
she needs to use the bathroom, the pt states that she ordered lunch, the pt offers no complaints at this time, will continue to monitor the pt closely
[2024-03-27] MEDS: LEVAQUIN 500 MG PO (15:01)
[2024-03-27] MEDS: PEPCID 20 MG PO ×2 (15:02→20:43)
[2024-03-27 17:30] LABS: Osmolality Urine 530 mOsm/kg (300-900)
[2024-03-27 17:45] LABS: Urine Sodium 38 mmol/L (30-90)
--- NOTE | 2024-03-27 17:50 | EDRN ---
this RN called the receiving nurse Radha VERMA and gave verbal report, this RN also tubed up paper report to the receiving unit
[2024-03-27] MEDS: LOVENOX SC (17:53)
[2024-03-27] MEDS: LASIX 20 MG IV (18:05)
--- NOTE | 2024-03-27 18:25 | PTCARENOTE ---
Patient arrived from ED at 18:25. Pt ambulated from stretcher to bathroom and then to bed independently. Pt AAOx3. VSS. Call masters and belongings within reach.
[2024-03-27] MEDS: FLUSH (NSS) 2 FLUSH IV (22:45)
[2024-03-28 03:30] VITALS: BP 113/62
[2024-03-28] MEDS: DECADRON 4 MG IV ×2 (06:12→13:02)
[2024-03-28] MEDS: FLUSH (NSS) 2 FLUSH IV ×2 (06:13→22:48)
[2024-03-28 07:20] LABS: % Basophils 0.3 % (0-2); % Immature Granulocytes 0.6 % (0-0.5); % Lymphocytes 6.7 % (20.5-51.1); % Monocytes 5.8 % (1.7-9.3); % Neutrophils 86.6 % (42.2-75.2); Absolute Lymphocytes 0.5 10^3/uL (1.2-3.4); Absolute Monocytes 0.4 10^3/uL (0.1-0.6); Hematocrit 55.8 % (37.0-47.0); Hemoglobin 19.5 g/dL (12.0-16.0); Mean Corp Hgb Conc. 34.9 g/dL (33.0-37.0); Mean Corpuscular Hgb 34.7 pg (27.0-31.0); Mean Corpuscular Volume 99.3 fL (81.0-99.0); Mean Platelet Volume 9.6 fL (7.4-10.4); Nucleated Red Blood Cells % 0 %; Platelet Count 149 10^3/uL (130-400); Red Blood Cell Count 5.62 10^6/uL (4.20-5.40); Red Cell Dist. Width 14.2 % (11.5-14.5); White Blood Cell Count 6.9 10^3/uL (4.8-10.8)
[2024-03-28 07:29] VITALS: BP 134/74
[2024-03-28] MEDS: SYMBICORT 160/4.5 MCG INHALER 2 PUFF INH ×2 (07:33→17:50)
[2024-03-28] MEDS: VENTOLIN NEBULES 1.25 MG INH ×5 (07:33→21:57)
[2024-03-28] MEDS: SPIRIVA RESPIMAT 2.5 MCG 2 PUFF INH (07:33)
[2024-03-28] MEDS: PEPCID 20 MG PO ×2 (07:37→20:08)
[2024-03-28] MEDS: CARDIZEM CD 240 MG PO (07:37)
[2024-03-28] MEDS: LEVAQUIN 500 MG PO (07:37)
[2024-03-28] MEDS: ZESTRIL 10 MG PO (07:37)
[2024-03-28] MEDS: ASPIR LOW (ENTERIC COATED) 81 MG PO (07:37)
[2024-03-28] MEDS: MUCINEX 600 MG PO ×2 (07:37→20:08)
[2024-03-28 08:13] LABS: Blood Urea Nitrogen 11 mg/dl (7-17); Calcium 9.1 mg/dl (8.4-10.2); Carbon Dioxide 30 mmol/L (22-30); Chloride 91 mmol/L (98-107); Estimated Creatinine Clearance 95 ml/min; Glucose 136 mg/dl (70-99); Potassium 4.3 mmol/L (3.5-5.1); Sodium 130 mmol/L (135-145); eGFR > 60.00
[2024-03-28] MEDS: LASIX 20 MG IV (09:20)
--- NOTE | 2024-03-28 10:01 | CM ---
CM met with pt at bedside.
Pt resides in a trailer, rents from the telecommunications administrator who lives at one end of house and she rents the other with a private room/bathroom. So 'basically live alone'.
Prior to admission pt uses no AD for ambulation, drives. Is not on home oxygen. Does own a nebulizer she occasionally uses.
Pt was working up until past Saturday when her employer told her she can not return without medical clearance. Pt works as a nurse for [employer].
Pts PCP is her employer, Dr. Nikhil Shearer.
Pt is interested in following up with the [facility]. She will need clearance to return to work. Pt reports having already recieved a call from [facility] to assist with MA process and told she makes too much money.
Pt is tearful. Concerned about paying rent and affording groceries if not working.
Plan: watch for oxygen needs. Currently on 1L. Provide information on clinic. Provide findhelp[facility]org resources. Will place call to [facility] to follow up however not sure available over weekend.
[2024-03-28 11:00] VITALS: BP 112/75
[2024-03-28 11:52] LABS: Erythropoietin (EPO) 1 mU/mL (4-27)
[2024-03-28] MEDS: TYLENOL 650 MG PO ×2 (13:09→20:08)
--- NOTE | 2024-03-28 13:50 | W.PN.HOSP.TC ---
Today's Communication/Plan
-
Wean oxygen as tolerated
Without insurance she will not be able to afford oxygen at home therefore we need to stay in the hospital until she can be off of oxygen.
Wean steroids
Follow BMP in the morning
Assessment / Plan
Assessment / Plan
59-year-old female presented to the hospital with shortness of breath. She has had shortness of breath intermittently for the past 2 weeks. It is getting worse she also has had a productive cough with yellow sputum. She was seen by primary who
treated her with a short course of steroids which she completed a week ago. She has been using her rescue inhaler also.
CT chest-no PE centrilobular emphysema. Prominence of main pulmonary artery suggesting pulmonary artery hypertension, 4 mm benign subpleural pulmonary nodule in the right upper lobe.
CVS: S1-S2 normal
Chest: B/L Wheezes,
Abdomen: Soft, NT / Bowel sounds present
Extremities: No edema, normal pulses
STEEPLECHASE JOCKEY: Non focal exam
ECHO-Normal left ventricular size, wall thickness and systolic function. No regional
wall motion abnormalities are seen. LV ejection fraction is 70% by Saini's
method of discs.
Abnormal (paradoxical) septal motion consistent with right ventricular (RV)
volume overload and/or elevated RV end-diastolic pressure.
Top normal right ventricular size. Normal right ventricular function.
No tricuspid regurgitation is seen. Right heart pressures could not be
determined.
Normal pericardium without effusion.
# Shortness of breath/acute hypoxic respiratory insufficiency
Centrilobular emphysema per CT scan
Asthma/COPD exacerbation
Likely precipitated by URI
She lives in a trailer and does not have air conditioning set up yet.( she will do now)
Check sputum cultures
Continue albuterol
On trilogy Ellipta as outpatient
Decadron- wean to 2 Q8H
Wean oxygen as tolerated-just took the patient off of oxygen 91% at rest. Follow how she does throughout the day.
ECHO as above
#Hyponatremia
Sodium 118 on presentation
Check serum osmolality and repeat urine osmolality
Status post hypertonic saline in the ER
Follow sodium-improving
Fluid restriction and lasix 20 PO daily at discharge
Nephrology apprciated
# Polycythemia
Erythropoietin level pending
Hematology evaluation appreciated
JAK2 mutation/PCR pending
# Hyperglycemia likely secondary to steroids
# History of paroxysmal atrial fibrillation
EKG sinus rhythm
Trop neg
Continue Cardizem
Patient is not on anticoagulation as outpatient
She stated that she did not have money to follow-up with cardiology.
I have reached out to [facility] cardiology , I am being told that the patient suffered from [facility] they can be seen in the office.
Patient is aware about this and she will follow-up.
She prefers to discuss anticoagulation at that point.
# Hypertension-continue lisinopril
# History of Pericardial effusion-not seen on current CT
# Chronically elevated D-dimer-CT negative for PE
# Uu-bqaoqy-zncx 6 years ago
# DVT prophylaxis-Lovenox
# Full code
Patient requested to keep the cost of hospitalization lower as possible.
She is aware that not following up with physicians is compromising her health .
She is planning to follow-up with [facility].
Patient is very appreciative of her care here and our input.
D/W nephrology
Anticipated Discharge: Within 24 hours
Subjective/Interval History
-
Date of Service: March 28, 2024
Objective Data
-
Labs:
Laboratory Results
03/28/24
05:15
WBC 6.9
Hgb 19.5 H
Hct 55.8 H
Plt Count 149
Sodium 130 L
Potassium 4.3
Chloride 91 L
Carbon Dioxide 30
BUN 11
Creatinine 0.5 L
Glucose 136 H
Calcium 9.1
Vital Signs:
Vital Signs
Temp Pulse Resp BP Pulse Ox
98.3 F 103 17 112/75 91
03/28/24 11:00 03/28/24 11:00 03/28/24 11:00 03/28/24 11:00 03/28/24 12:45
I&O
03/27/24 03/28/24 03/29/24
06:59 06:59 06:59
Intake Total 960 / 960
Balance 960 / 960
--- NOTE | 2024-03-28 14:39 | W.PN.NEPH.PH ---
Today's Communication / Plan
-
start po lasix 20mg daily
maintain FRlabs in am
Assessment/Plan
-
IMP:
Acute hypoxic respiratory failure likely COPD exacerbation
Hyponatremia
polycythemia
hxt of paroxysmal atrial fib
essential htn
Former smoker
Hyperglycemia likely secondary to steroids
History of Pericardial effusion-not seen on current CT
PLan:
A/w copd flare
severe hyponatremia likely from high free water intake
appears euvolemic, intial U osmo low at 49, repeat this am at 530
she may have underlying SIADH from COPD
sodium improved to 130
maintain FR 48ounces/day and start lasix 20mg daily
TSH normal
BP stable
heme follows for polycythemia
d/w pt and primary
-
-
Date of Service: March 28, 2024
CC / HPI / ROS
-
Chief Complaint:
Hyponatremia
History of Present Illness:
sodium better at 130
hb at 19
BP stable
on O2 2lit
Review of Systems:
no cp
sob improving
no fever
no n/v
Labs
-
Labs:
WBC 6.9 10^3/uL (4.8-10.8) 03/28/24 05:15
RBC 5.62 10^6/uL (4.20-5.40) H 03/28/24 05:15
Hgb 19.5 g/dL (12.0-16.0) H 03/28/24 05:15
Hct 55.8 % (37.0-47.0) H 03/28/24 05:15
Plt Count 149 10^3/uL (130-400) 03/28/24 05:15
Sodium 130 mmol/L (135-145) L 03/28/24 05:15
Potassium 4.3 mmol/L (3.5-5.1) 03/28/24 05:15
Chloride 91 mmol/L (98-107) L 03/28/24 05:15
Carbon Dioxide 30 mmol/L (22-30) 03/28/24 05:15
BUN 11 mg/dl (7-17) 03/28/24 05:15
Creatinine 0.5 mg/dL (0.6-1.0) L 03/28/24 05:15
eGFR > 60.00 03/28/24 05:15
Glucose 136 mg/dl (70-99) H 03/28/24 05:15
Calcium 9.1 mg/dl (8.4-10.2) 03/28/24 05:15
Ajb-S-Bjhsknnxssm Pept 894 pg/ml 03/26/24 23:40
Albumin Cancelled 03/26/24 18:44
Physical Exam
-
Vital Signs:
Vital Signs
Temp Pulse Resp BP Pulse Ox
98.3 F 103 17 112/75 91
03/28/24 11:00 03/28/24 11:00 03/28/24 11:00 03/28/24 11:00 03/28/24 12:45
Cardiovascular:: Regular rate and rhythm
Respiratory:: Bilateral: CTA (decreased)
Lung Excursion:: Normal
Abdomen:: Nontender and Soft
Extremity Edema:: None: Bilateral:
Lyon Catheter: No
[2024-03-28 15:00] VITALS: BP 124/77
[2024-03-28] MEDS: LOVENOX 40 MG SC (17:01)
[2024-03-28 19:40] VITALS: BP 119/72
[2024-03-28] MEDS: DECADRON 2 MG IV (22:47)
[2024-03-28 23:58] VITALS: BP 130/76
[2024-03-29 03:40] VITALS: BP 118/56
[2024-03-29] MEDS: DECADRON 2 MG IV (05:31)
[2024-03-29] MEDS: TYLENOL 650 MG PO ×2 (05:31→19:44)
[2024-03-29] MEDS: FLUSH (NSS) 2 FLUSH IV (05:32)
[2024-03-29 06:00] VITALS: BMI 31.4
[2024-03-29 06:27] LABS: % Basophils 0.2 % (0-2); % Immature Granulocytes 0.8 % (0-0.5); % Lymphocytes 6.2 % (20.5-51.1); % Monocytes 6.2 % (1.7-9.3); % Neutrophils 86.6 % (42.2-75.2); Absolute Immature Granulocytes 0.1 10^3/uL (0-0.05); Absolute Lymphocytes 0.6 10^3/uL (1.2-3.4); Absolute Monocytes 0.6 10^3/uL (0.1-0.6); Absolute Neutrophils 7.7 10^3/uL (1.4-6.5); Hematocrit 59.5 % (37.0-47.0); Mean Corp Hgb Conc. 33.6 g/dL (33.0-37.0); Mean Corpuscular Hgb 34.3 pg (27.0-31.0); Mean Corpuscular Volume 102.1 fL (81.0-99.0); Mean Platelet Volume 9.8 fL (7.4-10.4); Nucleated Red Blood Cells % 0 %; Platelet Count 175 10^3/uL (130-400); Red Blood Cell Count 5.83 10^6/uL (4.20-5.40); Red Cell Dist. Width 14.1 % (11.5-14.5); White Blood Cell Count 8.9 10^3/uL (4.8-10.8)
[2024-03-29 07:30] VITALS: BP 138/74
[2024-03-29 07:53] LABS: Blood Urea Nitrogen 14 mg/dl (7-17); Calcium 9.3 mg/dl (8.4-10.2); Carbon Dioxide 37 mmol/L (22-30); Chloride 89 mmol/L (98-107); Estimated Creatinine Clearance 95 ml/min; Glucose 150 mg/dl (70-99); Potassium 4.4 mmol/L (3.5-5.1); Sodium 131 mmol/L (135-145); eGFR > 60.00
[2024-03-29] MEDS: SYMBICORT 160/4.5 MCG INHALER 2 PUFF INH ×2 (08:11→19:36)
[2024-03-29] MEDS: VENTOLIN NEBULES 1.25 MG INH ×4 (08:11→19:37)
[2024-03-29] MEDS: SPIRIVA RESPIMAT 2.5 MCG 2 PUFF INH (08:12)
--- NOTE | 2024-03-29 08:58 | W.PN.HOSP.TC ---
Today's Communication/Plan
-
see bold
Assessment / Plan
Assessment / Plan
59-year-old female presented to the hospital with shortness of breath. She has had shortness of breath intermittently for the past 2 weeks. It is getting worse she also has had a productive cough with yellow sputum. She was seen by primary who
treated her with a short course of steroids which she completed a week ago. She has been using her rescue inhaler also.
CT chest-no PE centrilobular emphysema. Prominence of main pulmonary artery suggesting pulmonary artery hypertension, 4 mm benign subpleural pulmonary nodule in the right upper lobe.
# Shortness of breath/acute hypoxic respiratory insufficiency
# Centrilobular emphysema per CT scan
# Asthma/COPD exacerbation
Likely precipitated by URI
She lives in a trailer and does not have air conditioning set up yet.( she will do now)
Continue albuterol
On trilogy Ellipta as outpatient
Currently on IV Decadron, change to prednisone 40 mg p.o. daily tomorrow. Continue bronchodilators
Sputum culture with moderate mixed bacterial morphotypes, continue levofloxacin
Currently on 2 L of oxygen, wean as tolerated
ECHO reviewed
#Hyponatremia
Appreciate nephrology input, secondary to high free water intake
She may also have some underlying SIADH from COPD
Sodium improving status post hypertonic saline, was 118 upon admission
Sodium 131 today, continue fluid restriction, Lasix 20 mg p.o. daily
Fluid restriction and lasix 20 PO daily at discharge
# Polycythemia
Erythropoietin level pending
Hematology evaluation appreciated
JAK2 mutation/PCR pending
# Hyperglycemia likely secondary to steroids
# History of paroxysmal atrial fibrillation
EKG sinus rhythm
Trop neg
Continue Cardizem
Patient is not on anticoagulation as outpatient
She stated that she did not have money to follow-up with cardiology.
Dr. Soares reached out to [facility] cardiology, they recommend follow-up at [facility] they can be seen in the office.
Patient is aware about this and she will follow-up.
She prefers to discuss anticoagulation at that point.
# Hypertension-continue lisinopril
# History of Pericardial effusion-not seen on current CT
# Chronically elevated D-dimer-CT negative for PE
# Pj-vqauxs-wfte 6 years ago
DVT prophylaxis�subcu Lovenox
Full code
Patient requested to keep the cost of hospitalization lower as possible.
She is aware that not following up with physicians is compromising her health .
She is planning to follow-up with [facility].
Patient is very appreciative of her care here and our input.
Physical Exam
General: Obese, no acute distress
HEENT: Normocephalic, Atraumatic, EOMI, MMM
Respiratory: Diminished breath sounds in all lung galaviz, no wheezing
Cardiac: Normal S1/S2, Regular Rate and Rhythm
GI: Soft, Nontender, Nondistended, Normal Bowel Sounds
Extremities: No Clubbing, Cyanosis, or Edema
Neuro: Nonfocal/Grossly Intact
Psych: Calm, Cooperative
Derm: No Visible lesions
Anticipated Discharge: 24 - 48 hours
Subjective/Interval History
-
Date of Service: March 29, 2024
Patient's breathing has improved. She continues to have intermittent coughing fits. No fever, no vomiting.
Objective Data
-
Labs:
Laboratory Results
03/29/24 03/29/24
05:19 07:15
WBC 8.9
Hgb 20.0 H
Hct 59.5 H
Plt Count 175
Sodium Cancelled 131 L
Potassium Cancelled 4.4
Chloride Cancelled 89 L
Carbon Dioxide Cancelled 37 H
BUN Cancelled 14
Creatinine Cancelled 0.4 L
Glucose Cancelled 150 H
Calcium Cancelled 9.3
Vital Signs:
Vital Signs
Temp Pulse Resp BP Pulse Ox
98.4 F 79 20 138/74 95
03/29/24 07:30 03/29/24 07:30 03/29/24 07:30 03/29/24 07:30 03/29/24 07:30
I&O
03/28/24 03/29/24 03/30/24
06:59 06:59 06:59
Intake Total 960 / 960 1140 / 1140
Balance 960 / 960 1140 / 1140
[2024-03-29] MEDS: LEVAQUIN 500 MG PO (09:15)
[2024-03-29] MEDS: MUCINEX 600 MG PO ×2 (09:15→19:41)
[2024-03-29] MEDS: PEPCID 20 MG PO ×2 (09:15→19:41)
[2024-03-29] MEDS: CARDIZEM CD 240 MG PO (09:15)
[2024-03-29] MEDS: ZESTRIL 10 MG PO (09:16)
[2024-03-29] MEDS: ASPIR LOW (ENTERIC COATED) 81 MG PO (09:16)
[2024-03-29 11:55] VITALS: BP 119/68
[2024-03-29] MEDS: LASIX 20 MG PO (14:53)
[2024-03-29] MEDS: DECADRON IV (14:53)
[2024-03-29 15:45] VITALS: BP 116/62
--- NOTE | 2024-03-29 17:35 | W.PN.NEPH.PH ---
Addendum entered and electronically signed by Anny Levine MD 03/29/24 20:03:
will s/o, call with ?s
Original Note:
Today's Communication / Plan
-
cont lasix and FR
Assessment/Plan
-
IMP:
Acute hypoxic respiratory failure likely COPD exacerbation
Hyponatremia
polycythemia
hxt of paroxysmal atrial fib
essential htn
Former smoker
Hyperglycemia likely secondary to steroids
History of Pericardial effusion-not seen on current CT
PLan:
A/w copd flare
severe hyponatremia likely from high free water intake
appears euvolemic, initial U osmo low at 49, repeat this am at 530
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
sodium improved to 131
maintain FR 48ounces/day and cont lasix 20mg daily
TSH normal
BP stable
heme follows for polycythemia
d/w pt
f/u with PCP
-
-
Date of Service: March 29, 2024
CC / HPI / ROS
-
Chief Complaint:
Hyponatremia
History of Present Illness:
sodium better at 131
hb at 20
BP stable
off O2
Review of Systems:
no cp
sob improving
no fever
no n/v
Labs
-
Labs:
WBC 8.9 10^3/uL (4.8-10.8) 03/29/24 05:19
RBC 5.83 10^6/uL (4.20-5.40) H 03/29/24 05:19
Hgb 20.0 g/dL (12.0-16.0) H 03/29/24 05:19
Hct 59.5 % (37.0-47.0) H 03/29/24 05:19
Plt Count 175 10^3/uL (130-400) 03/29/24 05:19
Sodium 131 mmol/L (135-145) L 03/29/24 07:15
Potassium 4.4 mmol/L (3.5-5.1) 03/29/24 07:15
Chloride 89 mmol/L (98-107) L 03/29/24 07:15
Carbon Dioxide 37 mmol/L (22-30) H 03/29/24 07:15
BUN 14 mg/dl (7-17) 03/29/24 07:15
Creatinine 0.4 mg/dL (0.6-1.0) L 03/29/24 07:15
eGFR > 60.00 03/29/24 07:15
Glucose 150 mg/dl (70-99) H 03/29/24 07:15
Calcium 9.3 mg/dl (8.4-10.2) 03/29/24 07:15
Evs-O-Icikvduaxgj Pept 894 pg/ml 03/26/24 23:40
Albumin Cancelled 03/26/24 18:44
Physical Exam
-
Vital Signs:
Vital Signs
Temp Pulse Resp BP Pulse Ox
98.6 F 87 18 116/62 93
03/29/24 15:45 03/29/24 15:45 03/29/24 15:45 03/29/24 15:45 03/29/24 15:45
Cardiovascular:: Regular rate and rhythm
Respiratory:: Bilateral: Wheeze
Lung Excursion:: Normal
Abdomen:: Nontender and Soft
Extremity Edema:: None: Bilateral:
Lyon Catheter: No
[2024-03-29] MEDS: LOVENOX 40 MG SC (18:04)
--- NOTE | 2024-03-29 18:15 | PTCARENOTE ---
Patient weaned down to 1L during shift POX 92-93%. Pt trialed off O2 intermittently throughout shift POX 86-89%. Pt with intermittent S.O.B.
[2024-03-29 23:00] VITALS: BP 118/73
[2024-03-30] MEDS: VENTOLIN NEBULES 1.25 MG INH ×5 (01:36→19:53)
[2024-03-30 06:00] VITALS: BMI 31.0
[2024-03-30 06:54] LABS: Blood Urea Nitrogen 17 mg/dl (7-17); Calcium 9.2 mg/dl (8.4-10.2); Carbon Dioxide 37 mmol/L (22-30); Chloride 86 mmol/L (98-107); Estimated Creatinine Clearance 94 ml/min; Glucose 103 mg/dl (70-99); Potassium 4.4 mmol/L (3.5-5.1); Sodium 130 mmol/L (135-145); eGFR > 60.00
[2024-03-30 07:12] LABS: % Basophils 0.2 % (0-2); % Immature Granulocytes 0.7 % (0-0.5); % Lymphocytes 17.7 % (20.5-51.1); % Monocytes 12.7 % (1.7-9.3); % Neutrophils 68.7 % (42.2-75.2); Absolute Immature Granulocytes 0.1 10^3/uL (0-0.05); Absolute Lymphocytes 1.5 10^3/uL (1.2-3.4); Absolute Monocytes 1.1 10^3/uL (0.1-0.6); Absolute Neutrophils 5.7 10^3/uL (1.4-6.5); Hematocrit 54.8 % (37.0-47.0); Hemoglobin 18.9 g/dL (12.0-16.0); Mean Corp Hgb Conc. 34.5 g/dL (33.0-37.0); Mean Corpuscular Hgb 34.5 pg (27.0-31.0); Mean Platelet Volume 9.3 fL (7.4-10.4); Nucleated Red Blood Cells % 0 %; Platelet Count 165 10^3/uL (130-400); Red Blood Cell Count 5.48 10^6/uL (4.20-5.40); Red Cell Dist. Width 14.4 % (11.5-14.5); White Blood Cell Count 8.4 10^3/uL (4.8-10.8)
[2024-03-30 07:30] VITALS: BP 119/67
[2024-03-30] MEDS: SPIRIVA RESPIMAT 2.5 MCG 2 PUFF INH (07:57)
[2024-03-30] MEDS: SYMBICORT 160/4.5 MCG INHALER 2 PUFF INH ×2 (07:57→19:53)
--- NOTE | 2024-03-30 09:54 | PN.CDI ---
CDI
- -
CDI:
Physician Documentation Request
Admit Date: 03/26/24 23:51
Dear Doctor Fany,
Patient admitted for acute COPD exacerbation.
H&P: 'acute hypoxic respiratory failure likely COPD exacerbation'
03/28 Hospitalist PN: 'Shortness of breath/acute hypoxic respiratory insufficiency'
Selected Entries
03/26/24
18:25 03/26/24
19:45 03/27/24
06:58
SaO2 79 66 85
03/27/24
11:49 03/27/24
13:56 03/27/24
20:40
Nasal Cannula flow liters per minute 4 6 4
Clarify which of the following accurately represents the patient's respiratory status:
Acute hypoxic respiratory failure
Acute hypoxic respiratory insufficiency
Other
Additional information for Respiratory Failure:
Recognized criteria for Respiratory Failure (Source: [facility] Aug 2013)
ABGs: (1 or more) Symptoms Please indicate type if known
1. p)2 <60 or RA SPO2 <91% on RA 1. Tachypnea, SOB, dyspnea Hypoxic
2. pCO2 50 and pH <7.35 2. Use of accessory muscles Hypercapnic
3. pO2 decrease of pCO2 increase by 3. Pallor or cyanosis Hypoxic and Hypercapnic
10 mmHg from baseline if known 4. Anxiety or restlessness Unable to determine
5. Unable to speak in full sentences
Supplemental O2 of > 40% (5LPM) Intubation is not required
Use of terms such as suspected, likely, concern for, or probable (associated with a specific diagnosis that is being evaluated, monitored, or treated as if it exists) are acceptable and can be coded in the inpatient setting, when documented at the
time of discharge.
Thank you,
Laurence Banerjee RN, BSN
CDI Specialist
Available via [place] text
Please use your independent medical judgment in providing your response.
--- NOTE | 2024-03-30 10:08 | PN.CDI ---
Addendum entered and electronically signed by Cris Soares MD 03/31/24 07:43:
Documentation is complete at this time.
Original Note:
CDI
- -
CDI:
Physician Documentation Request
Admit Date: 03/26/24 23:51
Dear Doctor Fany,
Patient admitted with CODP exacerbation.
03/26 Chest XRay: 'mild pulmonary edema...Mild congestive heart failure'
03/26 Pro BNP: 894 pg/ml
03/27 Lasix 20 mg IV stat administered
03/28 Lasix 20 mg IV stat administered
03/29 Lasix 20 mg PO administered
Please clarify the following:
____ - Acute HF was present on admission and is now resolved.
____ - Acute HF was present on admission and is still being monitored, evaluated or treated
____ - Acute HF was ruled out
____ - Acute HF is still a likely, suspected, probable diagnosis
____ - Other
____ - Unable to determine
Use of terms such as suspected, likely, concern for, or probable (associated with a specific diagnosis that is being evaluated, monitored, or treated as if it exists) are acceptable and can be coded in the inpatient setting, when documented at the
time of discharge.
Thank you,
Laurence Banerjee RN, BSN
CDI Specialist
Available via [place] text
Please use your independent medical judgment in providing your response.
[2024-03-30] MEDS: CARDIZEM CD 240 MG PO (10:46)
[2024-03-30] MEDS: MUCINEX 600 MG PO ×2 (10:46→20:03)
[2024-03-30] MEDS: ASPIR LOW (ENTERIC COATED) 81 MG PO (10:46)
[2024-03-30] MEDS: LASIX 20 MG PO (10:46)
[2024-03-30] MEDS: DELTASONE 40 MG PO (10:46)
[2024-03-30] MEDS: PEPCID 20 MG PO ×2 (10:47→20:02)
[2024-03-30] MEDS: ZESTRIL 10 MG PO (10:47)
[2024-03-30] MEDS: LEVAQUIN 500 MG PO (11:09)
--- NOTE | 2024-03-30 13:00 | W.PN.ONC ---
Today's Communication / Plan
-
She is still struggling with breathing issues. JAK2 study is pending. Her erythropoietin level is quite low at 1, suggestive, but not diagnostic of polycythemia vera. No need for phlebotomy at this time. Close office follow-up.
Impression
Impression
- erythrocytosis
- asthma/COPD
- imaging c/f PAH
Plan
Plan
- CBC with new erythrocytosis with hgb 20.3 g/dl, Hct 58.4%. Prior labs in 2018 showed high normal hgb in 15-16 range. WBC , plts normal. Pt denies vasomotor symptoms. No hx of arterial or venous clots however imaging suggestive for PAH of unclear
etiology. Consider pulmonary consult.
- pt no longer active smoker. Denies hx of congenital heart disease. echo in 2018 w/ small pericardial effusion, mild LVH. consider repeating.
- check epo level, JAK2 V617F mutation.
- without symptoms c/f acute ischemic event will hold off on phlebotomy. However recommend starting low dose ASA 81 mg daily until primary PV ruled out. pt should see hematology in the office to review pending labs and consider role for routine
therapeutic phlebs for secondary PV if JAK2 negative.
Subjective/Objective
Subjective/Objective
She says her breathing is a little better. She reports no new symptoms. Physical examination is otherwise unchanged.
Vital Signs:
Vital Signs
Temp Pulse Resp BP Pulse Ox
98.6 F 80 16 119/67 94
03/30/24 07:30 03/30/24 11:44 03/30/24 11:44 03/30/24 07:30 03/30/24 11:44
Lab Results:
Laboratory Data
WBC 8.4 10^3/uL (4.8-10.8) 03/30/24 05:01
Hgb 18.9 g/dL (12.0-16.0) H 03/30/24 05:01
Plt Count 165 10^3/uL (130-400) 03/30/24 05:01
eGFR > 60.00 03/30/24 05:01
--- NOTE | 2024-03-30 13:19 | W.PN.HOSP.TC ---
Today's Communication/Plan
-
Change steroids to Decadron
wean oxygen as tolerated
Pulm eval
Pt may need continued Heme follow up as OP
will give one dose of Samsca as sodium is dropping
Assessment / Plan
Assessment / Plan
59-year-old female presented to the hospital with shortness of breath. She has had shortness of breath intermittently for the past 2 weeks. It is getting worse she also has had a productive cough with yellow sputum. She was seen by primary who
treated her with a short course of steroids which she completed a week ago. She has been using her rescue inhaler also.
CT chest-no PE centrilobular emphysema. Prominence of main pulmonary artery suggesting pulmonary artery hypertension, 4 mm benign subpleural pulmonary nodule in the right upper lobe.
CVS: S1-S2 normal
Chest: CTA B/L
Abdomen: Soft, NT / Bowel sounds present
Extremities: No edema, normal pulses
AERIAL SPRAYER: Non focal exam
# Shortness of breath/acute hypoxic respiratory insufficiency
# Centrilobular emphysema per CT scan
# Asthma/COPD exacerbation
Likely precipitated by URI
She lives in a trailer and does not have air conditioning set up yet.( she will do now)
Continue albuterol
On trilogy Ellipta as outpatient
Currently prednisone 40 mg p.o. daily tomorrow. change back to Decadron
Continue bronchodilators
Sputum culture with moderate mixed bacterial morphotypes, continue levofloxacin
Currently on 2 L of oxygen, wean as tolerated
ECHO reviewed
#Hyponatremia
Appreciate nephrology input, secondary to high free water intake
She may also have some underlying SIADH from COPD
Sodium improving status post hypertonic saline, was 118 upon admission
Sodium 130 today, continue fluid restriction, Lasix 20 mg p.o. daily
Fluid restriction and lasix 20 PO daily at discharge
# Polycythemia
Erythropoietin level low indicated primary polycythemia
Hematology evaluation appreciated
JAK2 mutation/PCR pending
# Hyperglycemia likely secondary to steroids
# History of paroxysmal atrial fibrillation
EKG sinus rhythm
Trop neg
Continue Cardizem
Patient is not on anticoagulation as outpatient
She stated that she did not have money to follow-up with cardiology.
Dr. Soares reached out to [facility] cardiology, they recommend follow-up at [facility] they can be seen in the office.
Patient is aware about this and she will follow-up.
She prefers to discuss anticoagulation at that point.
# Hypertension-continue lisinopril
# History of Pericardial effusion-not seen on current CT
# Chronically elevated D-dimer-CT negative for PE
# Wr-cporge-edcc 6 years ago
#DVT prophylaxis�subcu Lovenox
#Full code
D/W Heme
D/W Pulm
Anticipated Discharge: Within 24 hours
Subjective/Interval History
-
Date of Service: March 30, 2024
Objective Data
-
Labs:
Laboratory Results
03/30/24
05:01
WBC 8.4
Hgb 18.9 H
Hct 54.8 H
Plt Count 165
Sodium 130 L
Potassium 4.4
Chloride 86 L
Carbon Dioxide 37 H
BUN 17
Creatinine 0.5 L
Glucose 103 H
Calcium 9.2
Vital Signs:
Vital Signs
Temp Pulse Resp BP Pulse Ox
98.6 F 80 16 119/67 94
03/30/24 07:30 03/30/24 11:44 03/30/24 11:44 03/30/24 07:30 03/30/24 11:44
I&O
03/29/24 03/30/24 03/31/24
06:59 06:59 06:59
Intake Total 1140 / 1140 800 / 800 400 / 400
Balance 1140 / 1140 800 / 800 400 / 400
--- NOTE | 2024-03-30 13:38 | CON.PUL ---
Consultation
Consultation Request
Date/Time Consultation Requested: 03/30/24-1:30 PM
Date/Time Consultation Performed: 03/30/24-2 30 p.m.
Requesting Provider: hospitalist
Performing Provider: , Dr. Michelle
Reason for Consultation: , shortness of breath
Medical History
-
Chief Complaint: Shortness of breath
History of Present Illness:
59-year-old female with a history of COPD, asthma, hypertension, atrial fibrillation, presented with increasing shortness of breath and was admitted and treated for COPD exacerbation not improving-pulmonary was consulted for COPD exacerbation
03/30/24. She states that she takes Trelegy in the outpatient setting. She quit smoking 8 years ago. She has chest tightness, dyspnea on exertion, chest congestion, nonproductive cough, some postnasal drip but no acid reflux, abdominal pain, leg
swelling or weakness.
Past Medical History
Past Medical History: None ( COPD/asthma overlap. Former [id number]-73-mueg-year. Hypertension. PAF. History of pericardial effusion. Bilateral ACL repair. Appendectomy.)
Social History
Tobacco: Former Smoker (80-eyzm-aevl quit 51 years old)
Alcohol: Occasional
Drug: None
Living: With Family
Occupational Exposures: No known asbestos exposure
Environmental Exposures: no known tuberculosis exposure
Family History
Family History: Reviewed & Not Pertinent
Allergies / Home Medications
Allergies
Allergy/AdvReac Type Severity Reaction Status Date / Time
No Known Allergies Allergy Unverified 03/26/24 18:27
Home Medications
�Medication �Instructions �Recorded �Confirmed �Last Taken �Type
albuterol sulfate 90 mcg/actuation 2 puff inhalation R Q4HPRN PRN sob 07/28/18 03/26/24 07/28/18 History
aerosol inhaler
lisinopril 10 mg tablet 10 mg PO DAILY Blood Pressure 07/28/18 03/26/24 03/26/24 History
diltiazem HCl 240 mg 240 mg PO DAILY ##30 08/03/18 03/26/24 03/26/24 Rx
capsule,extended release 24 hr
cetirizine 10 mg tablet (Zyrtec) 10 mg PO DAILY Allergies 03/26/24 03/26/24 03/26/24 History
cetirizine 10 mg tablet (Zyrtec) 10 mg PO HS PRN allergies 03/26/24 03/26/24 Unknown History
fluticasone fur. 200 mcg-umeclid 1 inh inhalation R DAILY 03/26/24 03/26/24 03/26/24 History
62.5 mcg-vilant 25 mcg Lung/Breathing Issues
inhalat.powder (Trelegy Ellipta)
guaifenesin 600 mg tablet, 600 mg PO BID Cough 03/26/24 03/26/24 03/26/24 History
extended release 12 hr (Mucus
Relief ER)
Review of Systems
-
Unable to Obtain full review of systems at this time due to: Other (Per HPI)
Vitals / Labs / Diagnostic Testing
Vital Signs
Temp Pulse Resp BP Pulse Ox
98.6 F 80 16 119/67 94
03/30/24 07:30 03/30/24 11:44 03/30/24 11:44 03/30/24 07:30 03/30/24 11:44
Lab Data
03/30/24 05:01
03/30/24 05:01
Microbiology
03/27/24 17:13 Sputum Respiratory Culture - Final
03/27/24 17:13 Sputum Gram Stain - Final
Diagnostic Testing:
Physical Exam
-
HEENT: Normocephalic, Anicteric and Moist Mucous Membranes
Cardiovascular: Regular Rhythm
Respiratory: Clear ( diminished breath sounds and prolonged expiratory time), Wheeze (Forced expiratory), Rales (n), Rhonchi, Non-Labored Respirations and Accessory Resp Muscle Use
GI: Soft, Non Distended and Non Tender
Neurology: Awake and No Motor Deficits
Skin: Good Color
General: Respiratory Distress (n) and Comfortable
Assessment
-
59-year-old female with a history of COPD, asthma, hypertension, atrial fibrillation, presented with increasing shortness of breath and was admitted and treated for COPD exacerbation not improving-pulmonary was consulted for COPD exacerbation
03/30/24.
Assessment
Respiratory failure-acute hypoxemic- Room air saturation 77%
COPD/asthma overlap with acute exacerbation.
Bronchitis-acute
Hyponatremia.
Polycythemia-hemoglobin 20.6
Hyperglycemia..
Obesity-BMI 31
Pulmonary nodule
Conditions present prior to admission:
[facility] hospitalization 07/28/18-COPD/asthma exacerbation and left lower lobe pneumonia
COPD.
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
Hypertension.
PAF.
History of pericardial effusion.
Bilateral ACL repair. Appendectomy.
Plan
Respiratory decompensation, likely due to respiratory tract infection and COPD/asthma with acute exacerbation
Supplemental oxygen as needed
Nebulizers
Symbicort continues
Decadron 4 mg IV every 8 hours-was on prednisone now changed back to Decadron
Mucolytic's
Mucus clearing devices
Check cultures.
Empiric antibiotics-on levofloxacin-increased risk for tendinitis/rupture with quinolone/steroids-will monitor closely
Follow hemoglobin-polycythemia primary or secondary
Serology including Osmel 2 pending.
Hematology following-correspondence reviewed
Nephrology following-correspondence reviewed
Replace electrolytes
Monitor blood sugar
Insulin supplementation as needed
DVT prophylaxis-on Lovenox
Nutrition
Early mobilization
The patient was last seen by merchandise clerk during hospitalization 2018-Dr. Best -she subsequently never followed up with pulmonary-needs. PFTs, 6 minute walk test, yearly low-dose lung cancer screening CT
The patient reports not having insurance-hopefully case management will be involved in helping-she is looking into the [facility] as well
Data:
Chest x-ray 07/30/18-ttiny bilateral pleural effusions.
Chest x-ray 03/26/24-mild CHF, COPD changes
CT chest 07/28/18-no evidence for pulmonary bruising, minimal airspace consolidation left lower lobe, moderate pericardial effusion measuring 2 cm at its greatest, mild central lobular emphysema, 3 mm lung nodule at the left apex, main pulmonary
arteries suggestive of pulmonary artery hypertension..
CT chest 03/26/24-No pulmonary embolism, centrilobular emphysema, prominent main pulmonary artery suggesting pulmonary artery hypertension, new 4 mm subpleural right upper lobe nodule-comparison was made to 07/28/18
Lower extremity ultrasound 07/29/18-negative for bilateral lower extremity DVT
Data Reviewed
-
EKG: Report reviewed by me
Radiology: Image personally visualized and interpreted and Report reviewed by me
CT Scan: Report reviewed by me
Ultrasound: Report reviewed by me
Medical Tests (Nuc Med, Echo etc): Report reviewed by me
Labs: Labs reviewed by me
Old Records: Reviewed
Total Time Spent with Patient (in minutes): 65
[2024-03-30] MEDS: DECADRON 4 MG IV ×2 (14:15→21:22)
[2024-03-30 15:45] VITALS: BP 116/73
--- NOTE | 2024-03-30 16:42 | CM ---
Pt remains on IV steroids.
Oxygen 1.5 liters with Pox 97%.
Spoke with patient in room.
[facility] has [facility] for [facility].
Gave [employer] for food recourses.
Will need home oxygen test. If home oxygen needed will have to hall out of pocket oxygen.
She has supportive friends.
PLAN Home no anticipated needs Watch for home oxygen needs
[2024-03-30] MEDS: LOVENOX 40 MG SC (17:38)
[2024-03-30 23:46] VITALS: BP 121/64
[2024-03-31] MEDS: DECADRON 4 MG IV ×3 (05:22→21:51)
[2024-03-31 05:47] LABS: % Basophils 0.4 % (0-2); % Immature Granulocytes 0.5 % (0-0.5); % Lymphocytes 8.8 % (20.5-51.1); % Monocytes 6.1 % (1.7-9.3); % Neutrophils 81.2 % (42.2-75.2); Absolute Eosinophils 0.2 10^3/uL (0-0.7); Absolute Lymphocytes 0.5 10^3/uL (1.2-3.4); Absolute Monocytes 0.4 10^3/uL (0.1-0.6); Absolute Neutrophils 4.6 10^3/uL (1.4-6.5); Mean Corp Hgb Conc. 33.3 g/dL (33.0-37.0); Mean Corpuscular Hgb 34.1 pg (27.0-31.0); Mean Corpuscular Volume 102.5 fL (81.0-99.0); Nucleated Red Blood Cells % 0 %; Platelet Count 167 10^3/uL (130-400); Red Blood Cell Count 5.95 10^6/uL (4.20-5.40); Red Cell Dist. Width 13.9 % (11.5-14.5); White Blood Cell Count 5.7 10^3/uL (4.8-10.8)
[2024-03-31 06:00] VITALS: BMI 30.7
[2024-03-31 06:08] LABS: Hemoglobin 20.3 g/dL (12.0-16.0)
[2024-03-31 06:11] LABS: Blood Urea Nitrogen 18 mg/dl (7-17); Calcium 9.6 mg/dl (8.4-10.2); Carbon Dioxide 35 mmol/L (22-30); Chloride 86 mmol/L (98-107); Estimated Creatinine Clearance 94 ml/min; Glucose 146 mg/dl (70-99); Potassium 5.1 mmol/L (3.5-5.1); Sodium 131 mmol/L (135-145); eGFR > 60.00
[2024-03-31 07:00] VITALS: BP 142/71
[2024-03-31] MEDS: LASIX 20 MG PO (07:56)
[2024-03-31] MEDS: ZESTRIL 10 MG PO (07:56)
[2024-03-31] MEDS: ASPIR LOW (ENTERIC COATED) 81 MG PO (07:56)
[2024-03-31] MEDS: PEPCID 20 MG PO ×2 (07:56→20:28)
[2024-03-31] MEDS: MUCINEX 600 MG PO ×2 (07:56→20:28)
[2024-03-31] MEDS: CARDIZEM CD 240 MG PO (07:56)
[2024-03-31] MEDS: LEVAQUIN 500 MG PO (07:56)
[2024-03-31] MEDS: SYMBICORT 160/4.5 MCG INHALER 2 PUFF INH ×2 (09:04→19:43)
[2024-03-31] MEDS: VENTOLIN NEBULES 1.25 MG INH ×4 (09:04→19:43)
[2024-03-31] MEDS: SPIRIVA RESPIMAT 2.5 MCG 2 PUFF INH (09:05)
--- NOTE | 2024-03-31 10:20 | W.PN.PUL.V3 ---
Today's Communication / Plan
-
No change in Decadron
Consider diuresis gentle
Continue nebulizers
Attempt to wean oxygen
Assessment
-
59-year-old female with a history of COPD, asthma, hypertension, atrial fibrillation, presented with increasing shortness of breath and was admitted and treated for COPD exacerbation not improving-pulmonary was consulted for COPD exacerbation
03/30/24.
Assessment
Respiratory failure-acute hypoxemic- Room air saturation 77%
COPD/asthma overlap with acute exacerbation.
Bronchitis-acute
Hyponatremia.
Polycythemia-hemoglobin 20.6
Hyperglycemia..
Obesity-BMI 31
Pulmonary nodule
Conditions present prior to admission:
[facility] hospitalization 07/28/18-COPD/asthma exacerbation and left lower lobe pneumonia
COPD.
former ftxaox-72-anrh-year.
Hypertension.
PAF.
History of pericardial effusion.
Bilateral ACL repair. Appendectomy.
Plan
Respiratory decompensation, likely due to respiratory tract infection and COPD/asthma with acute exacerbation
Supplemental oxygen as needed-assess discharge supplemental oxygen needs at the time of discharge
Nebulizers
Symbicort continues
Decadron 4 mg IV every 8 hours-was on prednisone now changed back to Decadron-no change for today-still quite wheezy
Mucolytic's
Mucus clearing devices
Chest x-ray 03/31/2024-emphysema noted and potential mild CHF
Cultures reviewed-unrevealing
Empiric antibiotics-on levofloxacin-increased risk for tendinitis/rupture with quinolone/steroids-will monitor closely
Follow hemoglobin-polycythemia primary or secondary
Serology including Osmel 2 mutation and JAK2 V617F Spec Src-pending
Hematology following-correspondence reviewed
Nephrology following-correspondence reviewed
Replace electrolytes
Consider gentle diuresis
Monitor renal function, electrolytes, intake/output, lower extremity edema and weight
Replace electrolytes as needed
Monitor blood sugar
Insulin supplementation as needed
DVT prophylaxis-on Lovenox
Nutrition
Early mobilization
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
I advised if there is any way she should get yearly low-dose lung cancer screening CTs of the chest
The patient was last seen by hook and eye sewing machine operator during hospitalization 2018-Dr. Best -she subsequently never followed up with pulmonary-needs. PFTs, 6 minute walk test, yearly low-dose lung cancer screening CT
The patient reports not having insurance-hopefully case management will be involved in helping-she is looking into the [facility] as well
Data:
Chest x-ray 07/30/18-ttiny bilateral pleural effusions.
Chest x-ray 03/26/24-mild CHF, COPD changes
CT chest 07/28/18-no evidence for pulmonary bruising, minimal airspace consolidation left lower lobe, moderate pericardial effusion measuring 2 cm at its greatest, mild central lobular emphysema, 3 mm lung nodule at the left apex, main pulmonary
arteries suggestive of pulmonary artery hypertension..
CT chest 03/26/24-No pulmonary embolism, centrilobular emphysema, prominent main pulmonary artery suggesting pulmonary artery hypertension, new 4 mm subpleural right upper lobe nodule-comparison was made to 07/28/18
Lower extremity ultrasound 07/29/18-negative for bilateral lower extremity DVT
Subjective Data
-
Date of Service:
Date of Service: March 31, 2024
Chief Complaint: Pulmonary Follow Up and Dyspnea Follow Up
Subjective:
Still very wheezy, shortness of breath, requires oxygen, no chest pain, minimal cough, no abdominal pain
Review of Systems
General: Other (Per HPI)
Objective Data
Data Reviewed
Vital Signs / I&O:
Vital Signs
Temp Pulse Resp BP Pulse Ox
98.6 F 80 18 142/71 94
03/31/24 07:00 03/31/24 09:20 03/31/24 07:00 03/31/24 07:00 03/31/24 07:54
Intake and Output
03/30/24 03/31/24 04/01/24
06:59 06:59 06:59
Intake Total 800 / 800 1000 / 1000
Balance 800 / 800 1000 / 1000
SaO2: 94
Nasal Cannula flow liters per minute: 2
Physical Exam
General: Respiratory Distress (n) and Comfortable
HEENT: Normocephalic, Anicteric and Moist Mucous Membranes
Cardiovascular: Regular Rhythm
Respiratory: Clear (Diminished breath sounds and prolonged expiratory time), Wheeze (Diffuse expiratory), Crackles (n), Rhonchi (n), Non-Labored Respirations, Accessory Resp Muscle Use (n) and Stridor (n)
GI: Soft, Non Distended and Non Tender
Neurology: Awake, Alert and No Motor Deficits
Skin: Warm, Good Color, Cyanosis (n) and Jaundice (n)
Labs/Micro/Reports
Lab Data
03/31/24 05:10
03/31/24 05:10
--- NOTE | 2024-03-31 12:07 | W.PN.ONC ---
Today's Communication / Plan
-
continue mgmt of COPD exacerbation per pulmonary
Jak2 pending, though EPO=1 suggests PVera
Continue ASA 81mg
No indication for urgent phlebotomy, but will likely need to initiate as outpatient
Will follow along, and arrange heme f/u after d/c
Impression
Impression
- erythrocytosis
- asthma/COPD
- imaging c/f PAH
Plan
Plan
continue mgmt of COPD exacerbation per pulmonary
Jak2 pending, though EPO=1 suggests PVera
Continue ASA 81mg
No indication for urgent phlebotomy, but will likely need to initiate as outpatient
Will follow along, and arrange heme f/u after d/c
Subjective/Objective
Subjective/Objective
c/o chest congestion, had a rough night with breathing difficulty
Vital Signs:
Vital Signs
Temp Pulse Resp BP Pulse Ox
98.6 F 78 18 142/71 94
03/31/24 07:00 03/31/24 11:38 03/31/24 07:00 03/31/24 07:00 03/31/24 10:20
Lab Results:
Laboratory Data
WBC 5.7 10^3/uL (4.8-10.8) 03/31/24 05:10
Hgb 20.3 g/dL (12.0-16.0) H* 03/31/24 05:10
Plt Count 167 10^3/uL (130-400) 03/31/24 05:10
eGFR > 60.00 03/31/24 05:10
--- NOTE | 2024-03-31 12:32 | CM ---
Maintained on IV steroids.
Oxygen 2 liters with Pox 94%.Attempting to wean.
Pt has no home oxygen and no insurance.
Will need home oxygen test. If home oxygen needed will have to hall out of pocket oxygen.
Pt has [facility] information for [facility].Gave [employer] for food recourses.
She has supportive friends.
PLAN Home no anticipated needs Watch for home oxygen needs
--- NOTE | 2024-03-31 12:42 | W.PN.HOSP.TC ---
Today's Communication/Plan
-
Wean O2 as tolerated
If needs ome O2 she will need to privately pay for it
Once better , wean steroids
Assessment / Plan
Assessment / Plan
59-year-old female presented to the hospital with shortness of breath. She has had shortness of breath intermittently for the past 2 weeks. It is getting worse she also has had a productive cough with yellow sputum. She was seen by primary who
treated her with a short course of steroids which she completed a week ago. She has been using her rescue inhaler also.
CT chest-no PE centrilobular emphysema. Prominence of main pulmonary artery suggesting pulmonary artery hypertension, 4 mm benign subpleural pulmonary nodule in the right upper lobe.
CVS: S1-S2 normal
Chest:exp wheezes
Abdomen: Soft, NT / Bowel sounds present
Extremities: No edema, normal pulses
TICKET SCHEDULER: Non focal exam
cxr reviewed by me- NO PNA
# Shortness of breath/acute hypoxic respiratory insufficiency
# Centrilobular emphysema per CT scan
# Asthma/COPD exacerbation
Likely precipitated by URI
She lives in a trailer and does not have air conditioning set up yet.( she will do now)
Continue albuterol
On trilogy Ellipta as outpatient
Continue Decadron
Continue bronchodilators
Sputum culture with moderate mixed bacterial morphotypes, continue levofloxacin
Currently on 2 L of oxygen, wean as tolerated
ECHO reviewed
#Hyponatremia
Appreciate nephrology input, secondary to high free water intake and SIADH
Sodium improving status post hypertonic saline, was 118 upon admission
Sodium 131 today, Fluid restriction and Lasix 20 PO daily
# Polycythemia
Erythropoietin level low indicates primary polycythemia
ASA started
Hematology evaluation appreciated
JAK2 mutation/PCR pending
# Hyperglycemia likely secondary to steroids. HbA1C 6.1
# History of paroxysmal atrial fibrillation
EKG sinus rhythm
Trop neg
Continue Cardizem
Patient is not on anticoagulation as outpatient
She stated that she did not have money to follow-up with cardiology.
Dr. Soares reached out to [facility] cardiology, they recommend follow-up at [facility] they can be seen in the office with referral from [facility]
Patient is aware about this and she will follow-up.
She prefers to discuss anticoagulation at that point as OP.
# Hypertension-continue lisinopril
# History of Pericardial effusion-not seen on current CT
# Chronically elevated D-dimer-CT negative for PE
# [id number]-[id number] 6 years ago
#DVT prophylaxis�subcu Lovenox
#Full code
D/W Pulm
Advised to look into affordable care act as she will need more treatment with Polycythemia
Anticipated Discharge: 24 - 48 hours
Subjective/Interval History
-
Date of Service: March 31, 2024
Objective Data
-
Labs:
Laboratory Results
03/31/24
05:10
WBC 5.7
Hgb 20.3 H*
Hct 61.0 H*
Plt Count 167
Sodium 131 L
Potassium 5.1
Chloride 86 L
Carbon Dioxide 35 H
BUN 18 H
Creatinine 0.4 L
Glucose 146 H
Calcium 9.6
Vital Signs:
Vital Signs
Temp Pulse Resp BP Pulse Ox
98.6 F 78 18 142/71 94
03/31/24 07:00 03/31/24 11:38 03/31/24 07:00 03/31/24 07:00 03/31/24 10:20
I&O
03/30/24 03/31/24 04/01/24
06:59 06:59 06:59
Intake Total 800 / 800 1000 / 1000
Balance 800 / 800 1000 / 1000
[2024-03-31 15:00] VITALS: BP 125/71
[2024-03-31] MEDS: LOVENOX 40 MG SC (18:21)
[2024-03-31] MEDS: TYLENOL 650 MG PO (20:31)
[2024-03-31 23:36] VITALS: BP 124/59
[2024-04-01] MEDS: VENTOLIN NEBULES 1.25 MG INH ×5 (05:00→20:20)
[2024-04-01] MEDS: TESSALON PERLES 200 MG PO (05:09)
[2024-04-01] MEDS: DECADRON 4 MG IV ×2 (05:10→18:29)
[2024-04-01 07:00] VITALS: BP 143/70
[2024-04-01] MEDS: SPIRIVA RESPIMAT 2.5 MCG 2 PUFF INH (07:59)
[2024-04-01] MEDS: SYMBICORT 160/4.5 MCG INHALER 2 PUFF INH ×2 (07:59→20:20)
[2024-04-01 08:00] VITALS: BMI 30.8
--- NOTE | 2024-04-01 08:10 | W.PN.ONC2 ---
Today's Communication / Plan
-
Suspect P. Vera - Jak2 pending, though EPO=1 suggests PVera
Continue ASA 81mg
No indication for urgent phlebotomy.
Discussed the natural history Dx, Px, Tx of P. Vera as well as 2ndary Polycythemia (less likely)
Impression
Impression
- erythrocytosis
- asthma/COPD
- imaging c/f PAH
Plan
Plan
Suspect P. Vera - Jak2 pending, though EPO=1 suggests PVera
Continue ASA 81mg
No indication for urgent phlebotomy, but will likely need to initiate as outpatient. Office aware to schedule.
Will follow along, and arrange heme f/u after d/c
Subjective/Objective
Chief Complaint
ACS Heme Onc
Subjective
No CP or SOB. Multiple questions RE: P. CORTESA which I answered fully.
Vital Signs:
Vital Signs
Temp Pulse Resp BP Pulse Ox
98.3 F 69 18 143/70 95
04/01/24 07:00 04/01/24 08:05 04/01/24 08:05 04/01/24 07:00 04/01/24 08:05
Lab Results:
Laboratory Data
WBC 5.7 10^3/uL (4.8-10.8) 03/31/24 05:10
Hgb 20.3 g/dL (12.0-16.0) H* 03/31/24 05:10
Plt Count 167 10^3/uL (130-400) 03/31/24 05:10
eGFR > 60.00 03/31/24 05:10
Physical Exam
HEENT: Other (zulma, pleothera)
Cardiology: S1 and S2
Pulmonary: Clear
GI: Soft
Extremities: No C/C/E
[2024-04-01] MEDS: LEVAQUIN 500 MG PO (08:26)
[2024-04-01] MEDS: ASPIR LOW (ENTERIC COATED) 81 MG PO (08:26)
[2024-04-01] MEDS: ZESTRIL 10 MG PO (08:26)
[2024-04-01] MEDS: LASIX 20 MG PO (08:26)
[2024-04-01] MEDS: MUCINEX 600 MG PO ×2 (08:26→19:57)
[2024-04-01] MEDS: PEPCID 20 MG PO ×2 (08:27→19:57)
[2024-04-01] MEDS: CARDIZEM CD 240 MG PO (08:27)
--- NOTE | 2024-04-01 09:24 | W.PN.PUL.V3 ---
Today's Communication / Plan
-
No change in steroids
Wean oxygen
Increase activity
Overweight polycythemia workup-no need for phlebotomy at this point
Assessment
-
59-year-old female with a history of COPD, asthma, hypertension, atrial fibrillation, presented with increasing shortness of breath and was admitted and treated for COPD exacerbation not improving-pulmonary was consulted for COPD exacerbation
03/30/24.
Assessment
Respiratory failure-acute hypoxemic- Room air saturation 77%
COPD/asthma overlap with acute exacerbation.
Bronchitis-acute
Hyponatremia.
Polycythemia-hemoglobin 20.6
Hyperglycemia..
Obesity-BMI 31
Pulmonary nodule
Conditions present prior to admission:
[place] hospitalization 07/28/18-COPD/asthma exacerbation and left lower lobe pneumonia
COPD.
former [id number]-year.
Hypertension.
PAF.
History of pericardial effusion.
Bilateral ACL repair. Appendectomy.
Plan
Respiratory decompensation, likely due to respiratory tract infection and COPD/asthma with acute exacerbation
Supplemental oxygen as needed-assess discharge supplemental oxygen needs at the time of discharge
Nebulizers
Symbicort continues
Decadron 4 mg IV every 8 hours-was on prednisone now changed back to Decadron-would not change today and potentially wean tomorrow-still with significant wheezing-opening up a bit
Mucolytic's
Mucus clearing devices
Chest x-ray 03/31/2024-emphysema noted and potential mild CHF
Cultures reviewed-unrevealing
Empiric antibiotics-on levofloxacin-increased risk for tendinitis/rupture with quinolone/steroids-will monitor closely
Follow hemoglobin-polycythemia primary or secondary
Serology including Osmel 2 mutation and JAK2 V617F Spec Src-pending
Hematology following-correspondence reviewed-strongly suspect primary polycythemia vera
Nephrology following-correspondence reviewed
Continue to replace electrolytes
Consider gentle diuresis
Monitor renal function, electrolytes, intake/output, lower extremity edema and weight
Replace electrolytes as needed
Follow blood sugar
Insulin supplementation as needed
DVT prophylaxis-on Lovenox
Nutrition
Early mobilization
Patient works for local [employer]--plants that [facility]-plans to [facility]-she receives Trelegy inhalers from them as well as nebulizer medications
I advised if there is any way she should get yearly low-dose lung cancer screening CTs of the chest
The patient was last seen by rehabilitation therapy aide during hospitalization 2018-Dr. Best -she subsequently never followed up with pulmonary-lost insurance-needs PFTs, 6 minute walk test, yearly low-dose lung cancer screening CT
The patient reports not having insurance-hopefully case management will be involved in helping-she is looking into the [facility] as well
Data:
Chest x-ray 07/30/18-tiny bilateral pleural effusions.
Chest x-ray 03/26/24-mild CHF, COPD changes
CT chest 07/28/18-no evidence for pulmonary bruising, minimal airspace consolidation left lower lobe, moderate pericardial effusion measuring 2 cm at its greatest, mild central lobular emphysema, 3 mm lung nodule at the left apex, main pulmonary
arteries suggestive of pulmonary artery hypertension..
CT chest 03/26/24-No pulmonary embolism, centrilobular emphysema, prominent main pulmonary artery suggesting pulmonary artery hypertension, new 4 mm subpleural right upper lobe nodule-comparison was made to 07/28/18
Lower extremity ultrasound 07/29/18-negative for bilateral lower extremity DVT
Subjective Data
-
Date of Service:
Date of Service: April 01, 2024
Chief Complaint: Pulmonary Follow Up and Dyspnea Follow Up
Subjective:
Feels a little better, still quite wheezy, no chest pain, productive cough, has dyspnea on exertion
Review of Systems
General: Other (Per HPI)
Objective Data
Data Reviewed
Vital Signs / I&O:
Vital Signs
Temp Pulse Resp BP Pulse Ox
98.3 F 69 18 143/70 95
04/01/24 07:00 04/01/24 08:05 04/01/24 08:05 04/01/24 07:00 04/01/24 08:05
Intake and Output
03/31/24 04/01/24 04/02/24
06:59 06:59 06:59
Intake Total 1000 / 1000 1500 / 1500
Balance 1000 / 1000 1500 / 1500
SaO2: 95
Nasal Cannula flow liters per minute: 1.5
Physical Exam
General: Respiratory Distress (n) and Comfortable
HEENT: Normocephalic, Anicteric and Moist Mucous Membranes
Cardiovascular: Regular Rhythm
Respiratory: Clear (Diminished breath sounds and prolonged expiratory time), Wheeze (Diffuse expiratory), Crackles (n), Rhonchi (n), Non-Labored Respirations, Accessory Resp Muscle Use (n) and Stridor (n)
GI: Soft, Non Distended and Non Tender
Neurology: Awake, Alert and No Motor Deficits
Skin: Warm, Good Color, Cyanosis (n) and Jaundice (n)
Labs/Micro/Reports
Lab Data
03/31/24 05:10
03/31/24 05:10
--- NOTE | 2024-04-01 12:37 | W.PN.HOSP.TC ---
Today's Communication/Plan
-
see A/P
Assessment / Plan
Assessment / Plan
59-year-old female presented to the hospital with shortness of breath, ongoing intermittently for [address] chest-no PE, centrilobular emphysema. Prominence of main pulmonary artery suggesting pulmonary artery hypertension, 4 mm benign subpleural pulmonary nodule in the right upper lobe.
CXR:
Centrilobular emphysema
Prominence of the main pulmonary artery suggesting possible pulmonary arterial hypertension
A/P:
# Shortness of breath with acute hypoxic respiratory insufficiency
# Centrilobular emphysema per CT scan
# Asthma/COPD exacerbation, Likely precipitated by URI
Currently on 1.5 L of oxygen, wean as tolerated, pt not on home O2
She lives in a trailer and does not have air conditioning set up
On trilogy Ellipta outpatient
Continue neb, inhaler
Continue Decadron, decrease from 4mg Q8H to Q12H
Sputum culture noted with moderate mixed bacterial morphotypes
pt was started with levofloxacin
Check procal and if negative, would stop further Abx
ECHO reviewed
# Hyponatremia secondary to high free water intake and SIADH, improved
status post hypertonic saline
Sodium improved from 118 on admission to 131
Cont Fluid restriction and Lasix 20 PO daily
Appreciate nephrology input
# Polycythemia
Erythropoietin level low indicates primary polycythemia
ASA started
Hematology evaluation appreciated
JAK2 mutation/PCR pending
# Hyperglycemia likely secondary to steroids.
HbA1C 6.1
# History of paroxysmal atrial fibrillation
EKG sinus rhythm
Trop neg
Continue Cardizem
Patient is not on anticoagulation outpatient
She stated that she did not have money to follow-up with cardiology.
Dr. Soares reached out to [facility] cardiology, they recommend follow-up at [facility] and Card can be seen in the office with referral from [facility]. Patient is aware about this and she will follow-up.
She prefers to discuss anticoagulation at that point as OP.
# Hypertension
continue lisinopril, Cardizem
# History of Pericardial effusion
not seen on current CT
# Chronically elevated D-dimer
CT negative for PE
# Ex-smoker
quit 6 years ago
DVT prophylaxis�subcu Lovenox
Full code
Advised to look into affordable care act as she will need more treatment with Polycythemia
Anticipated Discharge: 24 - 48 hours
Subjective/Interval History
-
Date of Service: April 01, 2024
Objective Data
-
Vital Signs:
Vital Signs
Temp Pulse Resp BP Pulse Ox
36.8 C 92 18 143/70 92
04/01/24 07:00 04/01/24 11:15 04/01/24 11:15 04/01/24 07:00 04/01/24 11:15
I&O
03/31/24 04/01/24 04/02/24
06:59 06:59 06:59
Intake Total 1000 / 1000 1500 / 1500
Balance 1000 / 1000 1500 / 1500
Review of Systems
-
All other systems: Reviewed and negative
Physical Exam
-
General: Well Developed, Well Nourished, Comfortable, Respiratory Distress (mild) and Conversant
HEENT: Normocephalic, Atraumatic, Nose Appears Normal, Ears Appear Normal and Oxygen (1.5L NC)
Respiratory: Clear to Auscultation and Non Labored Respirations; Negative Wheezes or Accessory Resp Muscle Use
Cardiac: Regular Rhythm and S1/S2
GI: Soft, Nontender, Nondistended and Normal Bowel Sounds
Skin: Warm and Dry
Neuro: Awake, Alert, Oriented and AO x 3
Psych: Calm and Intact Judgement/Insight
Data Reviewed
-
Diagnostic Radiology: Report Reviewed by me
CT Scan: Report Reviewed by me
Labs: Labs Reviewed by me
[2024-04-01 13:05] LABS: % Basophils 0.6 % (0-2); % Eosinophils 0.1 % (0-6); % Immature Granulocytes 0.4 % (0-0.5); % Lymphocytes 8.2 % (20.5-51.1); % Monocytes 11.9 % (1.7-9.3); % Neutrophils 78.8 % (42.2-75.2); Absolute Lymphocytes 0.6 10^3/uL (1.2-3.4); Absolute Monocytes 0.8 10^3/uL (0.1-0.6); Absolute Neutrophils 5.4 10^3/uL (1.4-6.5); Mean Corp Hgb Conc. 33.5 g/dL (33.0-37.0); Mean Corpuscular Hgb 34.1 pg (27.0-31.0); Mean Corpuscular Volume 101.8 fL (81.0-99.0); Mean Platelet Volume 9.3 fL (7.4-10.4); Nucleated Red Blood Cells % 0 %; Platelet Count 200 10^3/uL (130-400); Red Blood Cell Count 6.04 10^6/uL (4.20-5.40); Red Cell Dist. Width 13.7 % (11.5-14.5); White Blood Cell Count 6.8 10^3/uL (4.8-10.8)
[2024-04-01 13:22] LABS: Hematocrit 61.5 % (37.0-47.0); Hemoglobin 20.6 g/dL (12.0-16.0)
[2024-04-01 14:26] LABS: Procalcitonin < 0.05 ng/ml (0.0-0.25)
[2024-04-01 15:00] VITALS: BP 125/71
[2024-04-01 15:39] LABS: Blood Urea Nitrogen 24 mg/dl (7-17); Calcium 10.1 mg/dl (8.4-10.2); Carbon Dioxide 38 mmol/L (22-30); Chloride 85 mmol/L (98-107); Estimated Creatinine Clearance 94 ml/min; Glucose 150 mg/dl (70-99); Potassium 4.8 mmol/L (3.5-5.1); Sodium 130 mmol/L (135-145); eGFR > 60.00
[2024-04-01 16:48] LABS: JAK2 Qual Mutation by PCR Not Detected; JAK2-PCR Source Whole Blood
[2024-04-01] MEDS: LOVENOX 40 MG SC (18:30)
[2024-04-01 23:51] VITALS: BP 135/75
[2024-04-02] MEDS: DECADRON 4 MG IV ×2 (05:34→18:12)
[2024-04-02 05:41] LABS: % Basophils 0.3 % (0-2); % Immature Granulocytes 0.6 % (0-0.5); % Lymphocytes 12.5 % (20.5-51.1); % Monocytes 10.7 % (1.7-9.3); % Neutrophils 75.9 % (42.2-75.2); Absolute Lymphocytes 0.8 10^3/uL (1.2-3.4); Absolute Monocytes 0.7 10^3/uL (0.1-0.6); Absolute Neutrophils 5.1 10^3/uL (1.4-6.5); Hematocrit 57.5 % (37.0-47.0); Hemoglobin 19.8 g/dL (12.0-16.0); Mean Corp Hgb Conc. 34.4 g/dL (33.0-37.0); Mean Corpuscular Hgb 34.7 pg (27.0-31.0); Mean Corpuscular Volume 100.9 fL (81.0-99.0); Mean Platelet Volume 8.9 fL (7.4-10.4); Nucleated Red Blood Cells % 0 %; Platelet Count 180 10^3/uL (130-400); Red Cell Dist. Width 13.9 % (11.5-14.5); White Blood Cell Count 6.7 10^3/uL (4.8-10.8)
[2024-04-02 05:46] VITALS: BMI 30.7
[2024-04-02] MEDS: SYMBICORT 160/4.5 MCG INHALER 2 PUFF INH ×2 (07:25→19:25)
[2024-04-02] MEDS: VENTOLIN NEBULES 1.25 MG INH (07:25)
[2024-04-02] MEDS: SPIRIVA RESPIMAT 2.5 MCG 2 PUFF INH (07:25)
[2024-04-02 07:43] VITALS: BP 139/68
[2024-04-02] MEDS: CARDIZEM CD 240 MG PO (08:16)
[2024-04-02] MEDS: ASPIR LOW (ENTERIC COATED) 81 MG PO (08:16)
[2024-04-02 08:17] LABS: Blood Urea Nitrogen 21 mg/dl (7-17); Calcium 9.6 mg/dl (8.4-10.2); Carbon Dioxide 34 mmol/L (22-30); Chloride 89 mmol/L (98-107); Estimated Creatinine Clearance 94 ml/min; Glucose 127 mg/dl (70-99); Potassium 5.2 mmol/L (3.5-5.1); Sodium 132 mmol/L (135-145); eGFR > 60.00
[2024-04-02] MEDS: ZESTRIL 10 MG PO (08:17)
[2024-04-02] MEDS: MUCINEX 600 MG PO ×2 (08:17→20:38)
[2024-04-02] MEDS: LASIX 20 MG PO (08:17)
[2024-04-02] MEDS: PEPCID 20 MG PO ×2 (08:17→20:38)
[2024-04-02] MEDS: TYLENOL 650 MG PO (08:21)
[2024-04-02] MEDS: TESSALON PERLES 200 MG PO (08:30)
--- NOTE | 2024-04-02 09:32 | RESPNOTE ---
patient ambulated 150 feet on 2 liters with sa02=90% before dropping below 88% , o2 was increased to 3 liters to keep above 88%
--- NOTE | 2024-04-02 10:10 | W.PN.PUL.V3 ---
Today's Communication / Plan
-
Wean oxygen
Undoubtedly will require home oxygen
No change in Decadron-consider changing to prednisone 50-60 mg with slow taper in the next 24 hours
Continue nebulizers and inhalers
Assessment
-
59-year-old female with a history of COPD, asthma, hypertension, atrial fibrillation, presented with increasing shortness of breath and was admitted and treated for COPD exacerbation not improving-pulmonary was consulted for COPD exacerbation
03/30/24.
Assessment
Respiratory failure-acute hypoxemic- Room air saturation 77%
COPD/asthma overlap with acute exacerbation.
Bronchitis-acute
Hyponatremia.
Polycythemia-hemoglobin 20.6
Hyperglycemia..
Obesity-BMI 31
Pulmonary nodule
Conditions present prior to admission:
[place] hospitalization 07/28/18-COPD/asthma exacerbation and left lower lobe pneumonia
COPD.
former [id number]-peps-year.
Hypertension.
PAF.
History of pericardial effusion.
Bilateral ACL repair. Appendectomy.
Plan
Respiratory decompensation, likely due to respiratory tract infection and COPD/asthma with acute exacerbation
Supplemental oxygen as needed-assess discharge supplemental oxygen needs at the time of discharge
Rest and exercise oximetry 04/02/2024-room air saturation 84-88%-required supplemental oxygen with exertion
Nebulizers continues
Symbicort continues
Decadron 4 mg IV every 12 hours-hopefully can change to prednisone 50-60 mg daily with slow taper in the next 24 hours
Mucolytic's
Mucus clearing devices
Chest x-ray 03/31/2024-emphysema noted and potential mild CHF
Cultures reviewed-unrevealing
Empiric antibiotics-on levofloxacin-increased risk for tendinitis/rupture with quinolone/steroids-will monitor closely
Follow hemoglobin-polycythemia primary or secondary
Serology including Osmel 2 mutation and JAK2 V617F Spec Src-pending
Hematology following-correspondence reviewed-strongly suspect primary polycythemia vera
Nephrology following-correspondence reviewed
Continue to replace electrolytes
Gentle diuresis
Monitor renal function, electrolytes, intake/output, lower extremity edema and weight
Replace electrolytes as needed
Follow blood sugar
Insulin supplementation as needed
DVT prophylaxis-on Lovenox
Nutrition
Early mobilization
Patient works for local [facility] [facility] [employer] [facility] group--[employer] [employer]-plans to [facility] [employer] [facility]-she receives Trelegy inhalers from them as well as nebulizer medications-she does not have health insurance
I advised if there is any way she should get yearly low-dose lung cancer screening CTs of the chest
The patient was last seen by customs and immigration officer during hospitalization 2018-Dr. Best -she subsequently never followed up with pulmonary-lost insurance-needs PFTs, 6 minute walk test, yearly low-dose lung cancer screening CT
The patient reports not having insurance-hopefully case management will be involved in helping-she is looking into the [facility] as well
Data:
Chest x-ray 07/30/18-tiny bilateral pleural effusions.
Chest x-ray 03/26/24-mild CHF, COPD changes
CT chest 07/28/18-no evidence for pulmonary bruising, minimal airspace consolidation left lower lobe, moderate pericardial effusion measuring 2 cm at its greatest, mild central lobular emphysema, 3 mm lung nodule at the left apex, main pulmonary
arteries suggestive of pulmonary artery hypertension..
CT chest 03/26/24-No pulmonary embolism, centrilobular emphysema, prominent main pulmonary artery suggesting pulmonary artery hypertension, new 4 mm subpleural right upper lobe nodule-comparison was made to 07/28/18
Lower extremity ultrasound 07/29/18-negative for bilateral lower extremity DVT
Subjective Data
-
Date of Service:
Date of Service: April 02, 2024
Chief Complaint: Pulmonary Follow Up and Dyspnea Follow Up
Subjective:
Still with wheezing, overall somewhat improved, no chest pain, chest tightness or abdominal pain
Review of Systems
General: Other (Per HPI)
Objective Data
Data Reviewed
Vital Signs / I&O:
Vital Signs
Temp Pulse Resp BP Pulse Ox
98.2 F 78 17 139/68 94
04/02/24 07:43 04/02/24 07:43 04/02/24 07:43 04/02/24 07:43 04/02/24 07:43
Intake and Output
04/01/24 04/02/24 04/03/24
06:59 06:59 06:59
Intake Total 1500 / 1500 1200 / 1200
Balance 1500 / 1500 1200 / 1200
SaO2: 94
Nasal Cannula flow liters per minute: 1.5
Physical Exam
General: Respiratory Distress (n) and Comfortable
HEENT: Normocephalic, Anicteric and Moist Mucous Membranes
Cardiovascular: Regular Rhythm
Respiratory: Clear (Diminished breath sounds and prolonged expiratory time), Wheeze (Diffuse expiratory), Crackles (n), Rhonchi (n), Non-Labored Respirations, Accessory Resp Muscle Use (n) and Stridor (n)
GI: Soft, Non Distended and Non Tender
Neurology: Awake, Alert and No Motor Deficits
Skin: Warm, Good Color, Cyanosis (n) and Jaundice (n)
Labs/Micro/Reports
Lab Data
04/02/24 05:18
04/02/24 07:01
--- NOTE | 2024-04-02 10:47 | W.PN.HOSP.TC ---
Today's Communication/Plan
-
see A/P
Assessment / Plan
Assessment / Plan
59-year-old female presented to the hospital with shortness of breath, ongoing intermittently for [address] chest-no PE, centrilobular emphysema. Prominence of main pulmonary artery suggesting pulmonary artery hypertension, 4 mm benign subpleural pulmonary nodule in the right upper lobe.
CXR:
Centrilobular emphysema
Prominence of the main pulmonary artery suggesting possible pulmonary arterial hypertension
A/P:
# Shortness of breath with acute hypoxic respiratory insufficiency
# Centrilobular emphysema per CT scan
# Asthma/COPD exacerbation, Likely precipitated by URI
She lives in a trailer and does not have air conditioning set up
Cont O2 support, on 2 L NC, wean as tolerated, pt not on home O2
On trilogy Ellipta outpatient
Cont duonebs ATC and PRN
Continue Decadron 4mg Q12H
Sputum culture noted with moderate mixed bacterial morphotypes
pt was started with levofloxacin, but given procal is neg, further Abx has been discontinued
ECHO reviewed
# Hyponatremia secondary to high free water intake and SIADH, improved
status post hypertonic saline
Sodium improved from 118 on admission to 132 today
Cont Fluid restriction and Lasix 20 PO daily
Appreciate nephrology input
# Polycythemia
Erythropoietin level low indicates primary polycythemia
ASA started
Hematology evaluation appreciated
JAK2 mutation/PCR pending
# Mild hyperkalemia
K level 5.2, hold further lisinopril
# Hyperglycemia likely secondary to steroids.
HbA1C 6.1
# History of paroxysmal atrial fibrillation
EKG sinus rhythm
Trop neg
Continue Cardizem
Patient is not on anticoagulation outpatient
She stated that she did not have money to follow-up with cardiology.
Dr. Soares reached out to [facility] cardiology, they recommend follow-up at [facility] and Card can be seen in the office with referral from [facility]. Patient is aware about this and she will follow-up.
She prefers to discuss anticoagulation at that point as OP.
# Hypertension
continue Cardizem
Holding lisinopril due to mild hyperkalemia
# History of Pericardial effusion
not seen on current CT
# Chronically elevated D-dimer
CT negative for PE
# Ex-smoker
quit 6 years ago
DVT prophylaxis�subcu Lovenox
Full code
Advised to look into affordable care act as she will need more treatment with Polycythemia
Anticipated Discharge: 24 - 48 hours
Subjective/Interval History
-
Date of Service: April 02, 2024
Objective Data
-
Labs:
Laboratory Results
04/02/24 04/02/24
05:18 07:01
WBC 6.7
Hgb 19.8 H
Hct 57.5 H
Plt Count 180
Sodium Cancelled 132 L
Potassium Cancelled 5.2 H
Chloride Cancelled 89 L
Carbon Dioxide Cancelled 34 H
BUN Cancelled 21 H
Creatinine Cancelled 0.4 L
Glucose Cancelled 127 H
Calcium Cancelled 9.6
Vital Signs:
Vital Signs
Temp Pulse Resp BP Pulse Ox
36.8 C 78 17 139/68 94
04/02/24 07:43 04/02/24 07:43 04/02/24 07:43 04/02/24 07:43 04/02/24 10:10
I&O
04/01/24 04/02/24 04/03/24
06:59 06:59 06:59
Intake Total 1500 / 1500 1200 / 1200
Balance 1500 / 1500 1200 / 1200
Review of Systems
-
All other systems: Reviewed and negative
Physical Exam
-
General: Well Developed, Well Nourished, Comfortable, Respiratory Distress (mild) and Conversant
HEENT: Normocephalic, Atraumatic, Nose Appears Normal, Ears Appear Normal and Oxygen (2L NC)
Respiratory: Clear to Auscultation, Wheezes and Non Labored Respirations; Negative Accessory Resp Muscle Use
Cardiac: Regular Rhythm and S1/S2
GI: Soft, Nontender, Nondistended and Normal Bowel Sounds
Skin: Warm and Dry
Neuro: Awake, Alert, Oriented and AO x 3
Psych: Calm and Intact Judgement/Insight
Data Reviewed
-
Diagnostic Radiology: Report Reviewed by me
CT Scan: Report Reviewed by me
Labs: Labs Reviewed by me
--- NOTE | 2024-04-02 11:07 | W.PN.ONC ---
Today's Communication / Plan
-
Suspect P. Vera
Paradoxical findings negative for JAK2 V617 reflex to MPN panel
Erythropoietin significantly suppressed at 1
No indication for urgent phlebotomy, but will likely need to initiate as outpatient
Continue aggressive hydration
ASA
May need bone marrow biopsy
Will follow in the office for phlebotomy
Impression
Impression
- erythrocytosis
- asthma/COPD
- imaging c/f PAH
Plan
Plan
Subjective/Objective
Subjective/Objective
Clinically a asymptomatic. Denies shortness of breath or palpitations.
Vital Signs:
Vital Signs
Temp Pulse Resp BP Pulse Ox
98.2 F 78 17 139/68 94
04/02/24 07:43 04/02/24 07:43 04/02/24 07:43 04/02/24 07:43 04/02/24 10:10
Plethoric appearance
Regular rhythm
Clear with distant breath sounds
Symmetrical lower extremities
Lab Results:
Laboratory Data
WBC 6.7 10^3/uL (4.8-10.8) 04/02/24 05:18
Hgb 19.8 g/dL (12.0-16.0) H 04/02/24 05:18
Plt Count 180 10^3/uL (130-400) 04/02/24 05:18
eGFR > 60.00 04/02/24 07:01
[2024-04-02] MEDS: DUONEB 3 ML INH ×3 (11:29→19:25)
[2024-04-02 16:28] VITALS: BP 135/73
[2024-04-02] MEDS: LOVENOX 40 MG SC (18:13)
[2024-04-02 23:32] VITALS: BP 133/90
[2024-04-03 05:39] LABS: % Basophils 0.3 % (0-2); % Immature Granulocytes 0.6 % (0-0.5); % Monocytes 15.5 % (1.7-9.3); % Neutrophils 70.6 % (42.2-75.2); Absolute Lymphocytes 0.9 10^3/uL (1.2-3.4); Absolute Monocytes 1.1 10^3/uL (0.1-0.6); Absolute Neutrophils 4.8 10^3/uL (1.4-6.5); Hematocrit 57.5 % (37.0-47.0); Hemoglobin 19.7 g/dL (12.0-16.0); Mean Corp Hgb Conc. 34.3 g/dL (33.0-37.0); Mean Corpuscular Hgb 34.6 pg (27.0-31.0); Mean Corpuscular Volume 100.9 fL (81.0-99.0); Mean Platelet Volume 8.8 fL (7.4-10.4); Nucleated Red Blood Cells % 0 %; Platelet Count 181 10^3/uL (130-400); Red Cell Dist. Width 13.5 % (11.5-14.5); White Blood Cell Count 6.8 10^3/uL (4.8-10.8)
[2024-04-03] MEDS: DECADRON 4 MG IV ×3 (05:51→22:30)
[2024-04-03 06:01] LABS: Blood Urea Nitrogen 19 mg/dl (7-17); Calcium 9.5 mg/dl (8.4-10.2); Carbon Dioxide 30 mmol/L (22-30); Chloride 90 mmol/L (98-107); Estimated Creatinine Clearance 94 ml/min; Glucose 125 mg/dl (70-99); Potassium 4.8 mmol/L (3.5-5.1); Sodium 127 mmol/L (135-145); eGFR > 60.00
[2024-04-03] MEDS: SYMBICORT 160/4.5 MCG INHALER 2 PUFF INH ×2 (07:34→19:37)
[2024-04-03] MEDS: DUONEB 3 ML INH ×3 (07:34→19:38)
[2024-04-03 07:38] VITALS: BMI 30.6
[2024-04-03 07:39] VITALS: BP 135/69
[2024-04-03] MEDS: CARDIZEM CD 240 MG PO (09:01)
[2024-04-03] MEDS: MUCINEX 600 MG PO ×2 (09:01→20:41)
[2024-04-03] MEDS: ASPIR LOW (ENTERIC COATED) 81 MG PO (09:02)
[2024-04-03] MEDS: LASIX 20 MG PO (09:02)
[2024-04-03] MEDS: PEPCID 20 MG PO ×2 (09:02→20:41)
--- NOTE | 2024-04-03 09:55 | W.PN.ONC ---
Today's Communication / Plan
-
Hematocrit stable despite diuretics
Arrange outpatient phlebotomy for Saturday
Anticoagulation per cardiology
Additional MPN testing as an outpatient
Stable for discharge from hematology perspective
Impression
Impression
Erythrocytosis JAK2 negative
Suppressed erythropoietin suggest PV
Asthma/COPD
Plan
Plan
Subjective/Objective
Subjective/Objective
No new complaints. Specifically denies headache or focal weakness. Denies worsening dyspnea.
Vital Signs:
Vital Signs
Temp Pulse Resp BP Pulse Ox
98.5 F 75 17 135/69 93
04/03/24 07:39 04/03/24 09:01 04/03/24 07:39 04/03/24 09:01 04/03/24 07:39
Physical exam unchanged
Lab Results:
Laboratory Data
WBC 6.8 10^3/uL (4.8-10.8) 04/03/24 05:03
Hgb 19.7 g/dL (12.0-16.0) H 04/03/24 05:03
Plt Count 181 10^3/uL (130-400) 04/03/24 05:03
eGFR > 60.00 04/03/24 05:03
--- NOTE | 2024-04-03 09:57 | W.PN.HOSP.TC ---
Today's Communication/Plan
-
see A/P
Assessment / Plan
Assessment / Plan
59-year-old female presented to the hospital with shortness of breath, ongoing intermittently for [address] chest-no PE, centrilobular emphysema. Prominence of main pulmonary artery suggesting pulmonary artery hypertension, 4 mm benign subpleural pulmonary nodule in the right upper lobe.
CXR:
Centrilobular emphysema
Prominence of the main pulmonary artery suggesting possible pulmonary arterial hypertension
A/P:
# Shortness of breath with acute hypoxic respiratory insufficiency
# Centrilobular emphysema per CT scan
# Asthma/COPD exacerbation, Likely precipitated by URI
She lives in a trailer and does not have air conditioning set up
Cont O2 support, currently on 2 L NC, wean as tolerated, pt not on home O2
On trilogy Ellipta outpatient
Cont duonebs ATC and PRN
Continue Decadron, increase back to 4mg Q8H (wheezing on R lower base)
Sputum culture noted with moderate mixed bacterial morphotypes
pt was started with levofloxacin (received 6 days), but given procal is neg, further Abx was discontinued/also completed course
ECHO reviewed
Start chest percussion to see if this will improved resp symptoms
# Hyponatremia secondary to high free water intake and SIADH, improved
status post hypertonic saline
Sodium improved from 118 on admission, to 127 today
Cont Fluid restriction and Lasix 20 PO daily
Appreciate nephrology input
# Polycythemia
Erythropoietin level low indicates primary polycythemia
ASA started
Hematology evaluation appreciated
JAK2 mutation/PCR pending
# Mild hyperkalemia
lisinopril held
# Hyperglycemia likely secondary to steroids.
HbA1C 6.1
# History of paroxysmal atrial fibrillation
EKG sinus rhythm
Trop neg
Continue Cardizem
Patient is not on anticoagulation outpatient
She stated that she did not have money to follow-up with cardiology.
Dr. Soares reached out to [facility] cardiology, they recommend follow-up at [facility] and Card can be seen in the office with referral from [facility]. Patient is aware about this and she will follow-up.
She prefers to discuss anticoagulation at that point as OP.
# Hypertension
continue Cardizem
Holding lisinopril due to mild hyperkalemia
BP stable
# History of Pericardial effusion
not seen on current CT
# Chronically elevated D-dimer
CT negative for PE
# Ex-smoker
quit 6 years ago
DVT prophylaxis�subcu Lovenox
Full code
Advised to look into affordable care act as she will need more treatment with Polycythemia
Anticipated Discharge: > 48 hours
Subjective/Interval History
-
Date of Service: April 03, 2024
Objective Data
-
Labs:
Laboratory Results
04/03/24
05:03
WBC 6.8
Hgb 19.7 H
Hct 57.5 H
Plt Count 181
Sodium 127 L
Potassium 4.8
Chloride 90 L
Carbon Dioxide 30
BUN 19 H
Creatinine 0.4 L
Glucose 125 H
Calcium 9.5
Vital Signs:
Vital Signs
Temp Pulse Resp BP Pulse Ox
36.9 C 75 17 135/69 93
04/03/24 07:39 04/03/24 09:01 04/03/24 07:39 04/03/24 09:01 04/03/24 07:39
I&O
04/02/24 04/03/24 04/04/24
06:59 06:59 06:59
Intake Total 1200 / 1200 1140 / 1140
Balance 1200 / 1200 1140 / 1140
Review of Systems
-
All other systems: Reviewed and negative
Physical Exam
-
General: Well Developed, Well Nourished, Comfortable, Respiratory Distress (mild) and Conversant
HEENT: Normocephalic, Atraumatic, Nose Appears Normal, Ears Appear Normal and Oxygen (2L NC)
Respiratory: Clear to Auscultation, Wheezes (R base ) and Non Labored Respirations; Negative Accessory Resp Muscle Use
Cardiac: Regular Rhythm and S1/S2
GI: Soft, Nontender, Nondistended and Normal Bowel Sounds
Skin: Warm and Dry
Neuro: Awake, Alert, Oriented and AO x 3
Psych: Calm and Intact Judgement/Insight
Data Reviewed
-
Diagnostic Radiology: Report Reviewed by me
CT Scan: Report Reviewed by me
Labs: Labs Reviewed by me
--- NOTE | 2024-04-03 10:12 | W.PN.PUL3 ---
Today's Communication / Plan
-
Bedside PFT
IV steroids increased by primary team, wean in next 24 hours
Eventual repeat home O2 assessment
Inhaler regiment to be determined at discharge
We discussed outpatient pulmonary FU
Assessment
-
59-year-old female with a history of COPD, asthma, hypertension, atrial fibrillation, presented with increasing shortness of breath and was admitted and treated for COPD exacerbation not improving-pulmonary was consulted for COPD exacerbation
03/30/24.
Respiratory failure-acute hypoxemic- Room air saturation 77%
COPD/asthma overlap with acute exacerbation.
Bronchitis-acute
Hyponatremia.
Polycythemia-hemoglobin 20.6
Hyperglycemia
Obesity-BMI 31
Pulmonary nodule
Conditions present prior to admission:
DH 07/28/18-COPD/asthma exacerbation/left lower lobe pneumonia
COPD.
former [id number].
Hypertension.
PAF.
History of pericardial effusion.
Bilateral ACL repair. Appendectomy.
Plan
Respiratory decompensation, likely due to respiratory tract infection and COPD/asthma with acute exacerbation
Supplemental oxygen as needed-assess discharge supplemental oxygen needs at the time of discharge
Rest and exercise oximetry 04/02/2024-room air saturation 84-88%-required supplemental oxygen with exertion
Nebulizers continues
Symbicort continues
Decadron 4 mg IV every 12 hours-hopefully can change to prednisone 50-60 mg daily with slow taper in the next 24 hours
She has been resumed on higher steroids per primary team
Wheezing has improved
Will obtain bedside delonte given issue with insurance and OP FU
Mucolytic's
Mucus clearing devices
Chest x-ray 03/31/2024-emphysema noted and potential mild CHF
Cultures reviewed-unrevealing
Empiric antibiotics-on levofloxacin-increased risk for tendinitis/rupture with quinolone/steroids-will monitor closely
Follow hemoglobin-polycythemia primary or secondary
Serology including Osmel 2 mutation and JAK2 V617F Spec Src-pending
Hematology following-correspondence reviewed-strongly suspect primary polycythemia vera
Nephrology following-correspondence reviewed
Continue to replace electrolytes
Gentle diuresis
Monitor renal function, electrolytes, intake/output, lower extremity edema and weight
Replace electrolytes as needed
Follow blood sugar
Insulin supplementation as needed
DVT prophylaxis-on Lovenox
Nutrition
Early mobilization
Patient works for local [employer] [facility] group--[employer]-plans to [employer]-she receives Trelegy inhalers from them as well as nebulizer medications-she does not have health insurance
I advised if there is any way she should get yearly low-dose lung cancer screening CTs of the chest
The patient was last seen by rubber tubing backer during hospitalization 2018-Dr. Best -she subsequently never followed up with pulmonary-lost insurance-needs PFTs, 6 minute walk test, yearly low-dose lung cancer screening CT
The patient reports not having insurance-hopefully case management will be involved in helping-she is looking into the [facility] as well
Data:
Chest x-ray 07/30/18-tiny bilateral pleural effusions.
Chest x-ray 03/26/24-mild CHF, COPD changes
CT chest 07/28/18-no evidence for pulmonary bruising, minimal airspace consolidation left lower lobe, moderate pericardial effusion measuring 2 cm at its greatest, mild central lobular emphysema, 3 mm lung nodule at the left apex, main pulmonary
arteries suggestive of pulmonary artery hypertension..
CT chest 03/26/24-No pulmonary embolism, centrilobular emphysema, prominent main pulmonary artery suggesting pulmonary artery hypertension, new 4 mm subpleural right upper lobe nodule-comparison was made to 07/28/18
Lower extremity ultrasound 07/29/18-negative for bilateral lower extremity DVT
Subjective Data
-
Date of Service:
Date of Service: April 03, 2024
Chief Complaint: Pulmonary Follow Up and Dyspnea Follow Up
Subjective:
remains on O2, SOB stable
no new complaints
anxious to go home
Objective Data
Data Reviewed
Vital Signs / I&O / Oxygen:
Vital Signs
Temp Pulse Resp BP Pulse Ox
98.5 F 75 17 135/69 93
04/03/24 07:39 04/03/24 09:01 04/03/24 07:39 04/03/24 09:01 04/03/24 07:39
Intake and Output
04/02/24 04/03/24 04/04/24
06:59 06:59 06:59
Intake Total 1200 / 1200 1140 / 1140
Balance 1200 / 1200 1140 / 1140
SaO2 93
Nasal Cannula flow liters per 2
minute
Physical Exam
General: Respiratory Distress (n) and Comfortable
HEENT: Normocephalic, Anicteric and Moist Mucous Membranes
Cardiovascular: Regular Rhythm
Respiratory: Clear (Diminished breath sounds and prolonged expiratory time), Wheeze (resolved), Crackles (n), Rhonchi (n), Non-Labored Respirations, Accessory Resp Muscle Use (n) and Stridor (n)
GI: Soft, Non Distended and Non Tender
Neurology: Awake, Alert, Oriented, AO x 3 and No Motor Deficits
Skin: Warm, Good Color, Cyanosis (n) and Jaundice (n)
Labs/Micro/Reports
Lab Data
04/03/24 05:03
04/03/24 05:03
[2024-04-03 15:46] VITALS: BP 130/64
--- NOTE | 2024-04-03 16:46 | CM ---
Steroids increased.
Oxygen 2 liters with Pox 93%.Attempting to wean.
Pt has no home oxygen and no insurance.
Will need home oxygen test. If home oxygen needed will have to hall out of pocket oxygen.
[facility] information for [facility].Gave [employer] for food recourses.
She has supportive friends.
PLAN Home no anticipated needs Watch for home oxygen needs
[2024-04-03] MEDS: VENTOLIN NEBULES 2.5 MG INH (16:57)
[2024-04-03] MEDS: DUONEB INH (17:01)
[2024-04-03] MEDS: LOVENOX 40 MG SC (17:35)
--- NOTE | 2024-04-03 20:59 | PTCARENOTE ---
Patient removed oxygen this evening to ambulate to bathroom and wash up for the night. While conversing with this RN, patient stated she felt good considering how she felt on admission and has been trialing room air as she can tolerate. Approx 1+
hour after removal of oxygen, pulse ox reading 90-91% on room air throughout entire conversation with this RN. Will continue to monitor overnight. Patient states she is using Acapella device 'religiously' and it is helping.
[2024-04-03] MEDS: FLUSH (NSS) 1 FLUSH IV (22:30)
[2024-04-03 23:00] VITALS: BP 104/58
[2024-04-04 06:08] VITALS: BMI 30.5
[2024-04-04] MEDS: DECADRON 4 MG IV (06:08)
[2024-04-04] MEDS: FLUSH (NSS) 1 FLUSH IV ×2 (06:10→21:57)
[2024-04-04 07:00] VITALS: BP 144/79
[2024-04-04] MEDS: DUONEB 3 ML INH ×4 (07:23→19:51)
[2024-04-04] MEDS: SYMBICORT 160/4.5 MCG INHALER 2 PUFF INH ×2 (07:23→19:52)
[2024-04-04] MEDS: ASPIR LOW (ENTERIC COATED) 81 MG PO (07:43)
[2024-04-04] MEDS: LASIX 20 MG PO (07:43)
[2024-04-04] MEDS: MUCINEX 600 MG PO ×2 (07:44→21:57)
[2024-04-04] MEDS: PEPCID 20 MG PO ×2 (07:44→21:57)
[2024-04-04] MEDS: CARDIZEM CD 240 MG PO (07:44)
[2024-04-04 08:24] LABS: % Basophils 0.5 % (0-2); % Immature Granulocytes 0.5 % (0-0.5); % Monocytes 8.9 % (1.7-9.3); % Neutrophils 80.1 % (42.2-75.2); Absolute Lymphocytes 0.7 10^3/uL (1.2-3.4); Absolute Monocytes 0.6 10^3/uL (0.1-0.6); Absolute Neutrophils 5.2 10^3/uL (1.4-6.5); Hematocrit 59.4 % (37.0-47.0); Mean Corp Hgb Conc. 34.2 g/dL (33.0-37.0); Mean Corpuscular Hgb 34.2 pg (27.0-31.0); Mean Platelet Volume 9.5 fL (7.4-10.4); Nucleated Red Blood Cells % 0 %; Platelet Count 222 10^3/uL (130-400); Red Blood Cell Count 5.94 10^6/uL (4.20-5.40); Red Cell Dist. Width 13.5 % (11.5-14.5); White Blood Cell Count 6.5 10^3/uL (4.8-10.8)
[2024-04-04 08:28] LABS: Hemoglobin 20.3 g/dL (12.0-16.0)
[2024-04-04 08:53] LABS: Blood Urea Nitrogen 21 mg/dl (7-17); Calcium 9.7 mg/dl (8.4-10.2); Carbon Dioxide 35 mmol/L (22-30); Chloride 85 mmol/L (98-107); Estimated Creatinine Clearance 93 ml/min; Glucose 123 mg/dl (70-99); Sodium 129 mmol/L (135-145); eGFR > 60.00
[2024-04-04 08:58] LABS: Potassium 4.7 mmol/L (3.5-5.1)
--- NOTE | 2024-04-04 10:00 | W.PN.HOSP.TC ---
Today's Communication/Plan
-
see A/P
Assessment / Plan
Assessment / Plan
59-year-old female presented to the hospital with shortness of breath, ongoing intermittently for [address] chest-no PE, centrilobular emphysema. Prominence of main pulmonary artery suggesting pulmonary artery hypertension, 4 mm benign subpleural pulmonary nodule in the right upper lobe.
CXR:
Centrilobular emphysema
Prominence of the main pulmonary artery suggesting possible pulmonary arterial hypertension
A/P:
# Shortness of breath with acute hypoxic respiratory insufficiency
# Centrilobular emphysema per CT scan
# Asthma/COPD exacerbation, Likely precipitated by URI
She lives in a trailer and does not have air conditioning set up
Pt weaned herself off O2, check walking pulse Ox
On trilogy Ellipta outpatient
Cont duonebs ATC and PRN
Continue Decadron 4mg Q8H (wheezing on R lower base improving)
Sputum culture noted with moderate mixed bacterial morphotypes
pt was started with levofloxacin (received 6 days), but given procal is neg, further Abx was discontinued/also completed course
ECHO reviewed
Start chest percussion to see if this will improved resp symptoms
# Hyponatremia secondary to high free water intake and SIADH, improved
status post hypertonic saline
Sodium improved from 118 on admission, to 129 today
Cont Fluid restriction and Lasix 20 PO daily
Appreciate nephrology input
# Polycythemia
Erythropoietin level low indicates primary polycythemia
ASA started
Hematology evaluation appreciated
JAK2 mutation/PCR pending
# Mild hyperkalemia
lisinopril held
# Hyperglycemia likely secondary to steroids.
HbA1C 6.1
# History of paroxysmal atrial fibrillation
EKG sinus rhythm
Trop neg
Continue Cardizem
Patient is not on anticoagulation outpatient
She stated that she did not have money to follow-up with cardiology.
Dr. Soares reached out to [facility] cardiology, they recommend follow-up at [facility] and Card can be seen in the office with referral from [facility]. Patient is aware about this and she will follow-up.
She prefers to discuss anticoagulation at that point as OP.
# Hypertension
continue Cardizem
Holding lisinopril due to mild hyperkalemia
BP stable
# History of Pericardial effusion
not seen on current CT
# Chronically elevated D-dimer
CT negative for PE
# Ex-smoker
quit 6 years ago
DVT prophylaxis�subcu Lovenox
Full code
Advised to look into affordable care act as she will need more treatment with Polycythemia
DW RN
Anticipated Discharge: 24 - 48 hours
Subjective/Interval History
-
Date of Service: April 04, 2024
Objective Data
-
Labs:
Laboratory Results
04/04/24
05:16
WBC 6.5
Hgb 20.3 H*
Hct 59.4 H
Plt Count 222 D
Sodium 129 L
Potassium 4.7
Chloride 85 L
Carbon Dioxide 35 H
BUN 21 H
Creatinine 0.5 L
Glucose 123 H
Calcium 9.7
Vital Signs:
Vital Signs
Temp Pulse Resp BP Pulse Ox
37.7 C 93 16 144/79 94
04/04/24 07:00 04/04/24 07:43 04/04/24 07:27 04/04/24 07:43 04/04/24 07:27
I&O
04/03/24 04/04/24 04/05/24
06:59 06:59 06:59
Intake Total 1140 / 1140 1420 / 1420
Balance 1140 / 1140 1420 / 1420
Review of Systems
-
All other systems: Reviewed and negative
Physical Exam
-
General: Well Developed, Well Nourished, Comfortable and Conversant
HEENT: Normocephalic, Atraumatic, Nose Appears Normal, Ears Appear Normal and Oxygen (she has weaned herself to RA )
Respiratory: Clear to Auscultation, Wheezes (R base ) and Non Labored Respirations; Negative Accessory Resp Muscle Use
Cardiac: Regular Rhythm and S1/S2
GI: Soft, Nontender, Nondistended and Normal Bowel Sounds
Skin: Warm and Dry
Neuro: Awake, Alert, Oriented and AO x 3
Psych: Calm and Intact Judgement/Insight
Data Reviewed
-
Diagnostic Radiology: Report Reviewed by me
CT Scan: Report Reviewed by me
Labs: Labs Reviewed by me
--- NOTE | 2024-04-04 14:22 | W.PN.PUL3 ---
Today's Communication / Plan
-
Decrease steroids, transition to prednisone tomorrow.
Continue nebulizer
Continue inhalers-restart outpatient inhalers after discharge. Patient gets samples.
Patient uninsured. Follow-up and medication will be difficult.
Wean off oxygen. Discussed with patient possibility of supplemental oxygen versus energy conservation if oxygen saturations only mild. Recheck tomorrow
Assessment
-
59-year-old female with a history of COPD, asthma, hypertension, atrial fibrillation, presented with increasing shortness of breath and was admitted and treated for COPD exacerbation not improving-pulmonary was consulted for COPD exacerbation
03/30/24.
Respiratory failure-acute hypoxemic- Room air saturation 77%
COPD/asthma overlap with acute exacerbation.
Bronchitis-acute
Hyponatremia.
Polycythemia-hemoglobin 20.6
Hyperglycemia
Obesity-BMI 31
Pulmonary nodule
Conditions present prior to admission:
DH 07/28/18-COPD/asthma exacerbation/left lower lobe pneumonia
COPD.
former [id number].
Hypertension.
PAF.
History of pericardial effusion.
Bilateral ACL repair. Appendectomy.
Plan
Respiratory decompensation, likely due to respiratory tract infection and COPD/asthma with acute exacerbation.
Environmental as patient has no air conditioning at home.
Spirometry consistent with severe airflow obstruction.
-
Ambulated today around the reed without shortness of breath. Pulse ox decreased to 86% with ambulation. No oxygen requirements at rest.
Hopefully can be weaned off by tomorrow.
Nebulizers continues-while in the hospital(patient has a nebulizer at home with medication that she will use as needed upon discharge)
Symbicort continues while in the hospital.
Decrease Decadron to 2 mg IV every 8 hours. Transition to prednisone tomorrow 40 mg and decrease by 10 mg every 72 hours to off.
Able to speak in full sentences. Moving good air. Minimal left base squeaks.
Mucolytic's
Mucus clearing devices
Chest x-ray 03/31/2024-emphysema noted and potential mild CHF
Cultures reviewed-unrevealing
Completed course of Levaquin.
Follow hemoglobin-polycythemia primary or secondary
Serology including Osmel 2 mutation and JAK2 V617F Spec Src-pending
Hematology following-correspondence reviewed-strongly suspect primary polycythemia vera
Nephrology following-correspondence reviewed
Continue to replace electrolytes
Diuresis per primary team
DVT prophylaxis-on Lovenox
Patient works for local [employer] [facility]--[employer]-plans to [employer]-she receives Trelegy inhalers from them as well as nebulizer medications-she does not have health insurance
I advised if there is any way she should get yearly low-dose lung cancer screening CTs of the chest
The patient was last seen by agile project manager during hospitalization 2018-Dr. Best -she subsequently never followed up with pulmonary-lost insurance-needs PFTs, 6 minute walk test, yearly low-dose lung cancer screening CT
The patient reports not having insurance-hopefully case management will be involved in helping-she is looking into the [facility] as well.
Hopefully discharge in 24 hours if better.
Advised to follow-up in the office if possible. Lack of insurance will limit follow-up.
Data:
Chest x-ray 07/30/18-tiny bilateral pleural effusions.
Chest x-ray 03/26/24-mild CHF, COPD changes
CT chest 07/28/18-no evidence for pulmonary bruising, minimal airspace consolidation left lower lobe, moderate pericardial effusion measuring 2 cm at its greatest, mild central lobular emphysema, 3 mm lung nodule at the left apex, main pulmonary
arteries suggestive of pulmonary artery hypertension..
CT chest 03/26/24-No pulmonary embolism, centrilobular emphysema, prominent main pulmonary artery suggesting pulmonary artery hypertension, new 4 mm subpleural right upper lobe nodule-comparison was made to 07/28/18
Lower extremity ultrasound 07/29/18-negative for bilateral lower extremity DVT
Subjective Data
-
Date of Service:
Date of Service: April 04, 2024
Chief Complaint: Pulmonary Follow Up and Dyspnea Follow Up
Subjective:
No new events overnight
No new complaints
Review of Systems
Cardiopulmonary: Dyspnea (improved)
GI: Abdominal Pain (n) and Nausea (n)
Neuro: Headache (n)
Objective Data
Data Reviewed
Vital Signs / I&O / Oxygen:
Vital Signs
Temp Pulse Resp BP Pulse Ox
99.8 F 92 16 144/79 93
04/04/24 07:00 04/04/24 11:19 04/04/24 11:19 04/04/24 07:43 04/04/24 11:19
Intake and Output
04/03/24 04/04/24 04/05/24
06:59 06:59 06:59
Intake Total 1140 / 1140 1420 / 1420
Balance 1140 / 1140 1420 / 1420
SaO2 93
Nasal Cannula flow liters per 1
minute
Physical Exam
General: Respiratory Distress (n) and Comfortable
HEENT: Normocephalic, Anicteric and Moist Mucous Membranes
Cardiovascular: Regular Rhythm
Respiratory: Clear (Diminished breath sounds and prolonged expiratory time), Wheeze (resolved), Crackles (n), Rhonchi (n), Non-Labored Respirations, Accessory Resp Muscle Use (n) and Stridor (n)
GI: Soft, Non Distended and Non Tender
Neurology: Awake, Alert, Oriented, AO x 3 and No Motor Deficits
Skin: Warm, Good Color, Cyanosis (n) and Jaundice (n)
Labs/Micro/Reports
Lab Data
04/04/24 05:16
04/04/24 05:16
[2024-04-04] MEDS: DECADRON IV (14:57)
[2024-04-04 15:00] VITALS: BP 142/75
[2024-04-04] MEDS: DECADRON 2 MG IV ×2 (15:05→21:56)
[2024-04-04] MEDS: LOVENOX 40 MG SC (18:01)
[2024-04-04] MEDS: TYLENOL 650 MG PO (22:06)
[2024-04-04 23:00] VITALS: BP 146/85
[2024-04-05 06:00] VITALS: BMI 30.4
[2024-04-05] MEDS: DECADRON 2 MG IV (06:11)
[2024-04-05] MEDS: FLUSH (NSS) 1 FLUSH IV (06:13)
[2024-04-05 06:34] LABS: % Basophils 0.6 % (0-2); % Immature Granulocytes 1.1 % (0-0.5); % Lymphocytes 11.1 % (20.5-51.1); % Monocytes 12.1 % (1.7-9.3); % Neutrophils 75.1 % (42.2-75.2); Absolute Basophils 0.1 10^3/uL (0-0.2); Absolute Immature Granulocytes 0.1 10^3/uL (0-0.05); Absolute Lymphocytes 0.9 10^3/uL (1.2-3.4); Absolute Neutrophils 6.4 10^3/uL (1.4-6.5); Hematocrit 56.6 % (37.0-47.0); Hemoglobin 19.9 g/dL (12.0-16.0); Mean Corp Hgb Conc. 35.2 g/dL (33.0-37.0); Mean Corpuscular Volume 96.8 fL (81.0-99.0); Mean Platelet Volume 9.3 fL (7.4-10.4); Nucleated Red Blood Cells % 0 %; Platelet Count 235 10^3/uL (130-400); Red Blood Cell Count 5.85 10^6/uL (4.20-5.40); Red Cell Dist. Width 13.2 % (11.5-14.5); White Blood Cell Count 8.5 10^3/uL (4.8-10.8)
[2024-04-05 07:40] VITALS: BP 137/88
[2024-04-05] MEDS: SYMBICORT 160/4.5 MCG INHALER 2 PUFF INH (07:45)
[2024-04-05] MEDS: DUONEB 3 ML INH ×2 (07:45→11:16)
[2024-04-05] MEDS: ASPIR LOW (ENTERIC COATED) 81 MG PO (08:23)
[2024-04-05] MEDS: LASIX 20 MG PO (08:23)
[2024-04-05] MEDS: PEPCID 20 MG PO (08:23)
[2024-04-05] MEDS: MUCINEX 600 MG PO (08:23)
[2024-04-05] MEDS: CARDIZEM CD 240 MG PO (08:24)
[2024-04-05 10:31] LABS: Blood Urea Nitrogen 21 mg/dl (7-17); Calcium 9.9 mg/dl (8.4-10.2); Carbon Dioxide 28 mmol/L (22-30); Chloride 87 mmol/L (98-107); Estimated Creatinine Clearance 93 ml/min; Glucose 194 mg/dl (70-99); Potassium 4.7 mmol/L (3.5-5.1); Sodium 128 mmol/L (135-145); eGFR > 60.00
--- NOTE | 2024-04-05 10:42 | W.PN.HOSP.TC ---
Addendum entered and electronically signed by Katelynn Cooper MD 04/05/24 15:49:
total DC time 40 min
Original Note:
Today's Communication/Plan
-
DC home today
Assessment / Plan
Assessment / Plan
59-year-old female presented to the hospital with shortness of breath, ongoing intermittently for [address] chest-no PE, centrilobular emphysema. Prominence of main pulmonary artery suggesting pulmonary artery hypertension, 4 mm benign subpleural pulmonary nodule in the right upper lobe.
CXR:
Centrilobular emphysema
Prominence of the main pulmonary artery suggesting possible pulmonary arterial hypertension
A/P:
# Shortness of breath with acute hypoxic respiratory insufficiency
# Centrilobular emphysema per CT scan
# Asthma/COPD exacerbation, Likely precipitated by URI
She lives in a trailer and does not have air conditioning set up
weaned off O2 to RA, pulse ox at 88% with ambulation on RA which is acceptable to me
On trilogy Ellipta outpatient
Cont duonebs ATC and PRN
IV Decadron 4mg Q8H to prednisone taper outpatient
Sputum culture noted with moderate mixed bacterial morphotypes
pt was started with levofloxacin (received 6 days), but given procal is neg, further Abx was discontinued/also completed course
ECHO reviewed
Started chest percussion to see if this will improved resp symptoms
# Hyponatremia secondary to high free water intake and SIADH, improved
status post hypertonic saline
Sodium improved from 118 on admission, to 129 today
Cont Fluid restriction and Lasix 20 PO daily
Appreciate nephrology input
# Polycythemia
Erythropoietin level low indicates primary polycythemia
ASA started
Hematology evaluation appreciated
JAK2 mutation/PCR pending
# Mild hyperkalemia
lisinopril held
# Hyperglycemia likely secondary to steroids.
HbA1C 6.1
# History of paroxysmal atrial fibrillation
EKG sinus rhythm
Trop neg
Continue Cardizem
Patient is not on anticoagulation outpatient
She stated that she did not have money to follow-up with cardiology.
Dr. Soares reached out to [facility] cardiology, they recommend follow-up at [facility] and Card can be seen in the office with referral from [facility]. Patient is aware about this and she will follow-up.
She prefers to discuss anticoagulation at that point as OP.
# Hypertension
continue Cardizem
Holding lisinopril due to mild hyperkalemia
BP stable on cardizem alone
# History of Pericardial effusion
not seen on current CT
# Chronically elevated D-dimer
CT negative for PE
# Ex-smoker
quit 6 years ago
DVT prophylaxis�subcu Lovenox
Full code
Advised to look into affordable care act as she will need more treatment with Polycythemia
DW RN
Anticipated Discharge: Today
Subjective/Interval History
-
Date of Service: April 05, 2024
Objective Data
-
Labs:
Laboratory Results
04/05/24 04/05/24 04/05/24
06:09 07:19 09:24
WBC 8.5
Hgb 19.9 H
Hct 56.6 H
Plt Count 235
Sodium Cancelled Cancelled 128 L
Potassium Cancelled Cancelled 4.7
Chloride Cancelled Cancelled 87 L
Carbon Dioxide Cancelled Cancelled 28
BUN Cancelled Cancelled 21 H
Creatinine Cancelled Cancelled 0.4 L
Glucose Cancelled Cancelled 194 H
Calcium Cancelled Cancelled 9.9
Vital Signs:
Vital Signs
Temp Pulse Resp BP Pulse Ox
37.9 C 92 18 137/88 100
04/05/24 07:40 04/05/24 08:23 04/05/24 07:48 04/05/24 08:23 04/05/24 09:11
I&O
04/04/24 04/05/24 04/06/24
06:59 06:59 06:59
Intake Total 1420 / 1420 540 / 540 500 / 500
Balance 1420 / 1420 540 / 540 500 / 500
Review of Systems
-
All other systems: Reviewed and negative
Physical Exam
-
General: Well Developed, Well Nourished, Comfortable and Conversant
HEENT: Normocephalic, Atraumatic, Nose Appears Normal, Ears Appear Normal and Oxygen (she has weaned herself to RA )
Respiratory: Clear to Auscultation, Wheezes (very mild L base ) and Non Labored Respirations; Negative Accessory Resp Muscle Use
Cardiac: Regular Rhythm and S1/S2
GI: Soft, Nontender, Nondistended and Normal Bowel Sounds
Skin: Warm and Dry
Neuro: Awake, Alert, Oriented and AO x 3
Psych: Calm and Intact Judgement/Insight
Data Reviewed
-
Diagnostic Radiology: Report Reviewed by me
CT Scan: Report Reviewed by me
Labs: Labs Reviewed by me
--- NOTE | 2024-04-05 10:46 | CM ---
Case management following for d/c planning
Plan is for d/c today
Pt has ride home
Pt reports will follow up in applying for insurance - has info for [facility]
Plan - home no needs
[2024-04-05 11:16] VITALS: BP 157/92
--- NOTE | 2024-04-05 14:16 | W.DCSUMMARY ---
Discharge Summary
Discharge Data
Date of Admission: 03/26/24
Date of Discharge: 04/05/24
-
Pending Results: No
Hospital Course
Principal Diagnosis:
Hyponatremia secondary to high free water intake and SIADH, improved
Acute hypoxic respiratory insufficiency due to COPD exacerbation, resolved hypoxia
Polycythemia
Chronic Diagnoses:�
History of paroxysmal atrial fibrillation
Hypertension
History of Pericardial effusion
Ex-smoker, quit 6 years ago
Consultations:�
Nephrology
Pulmonary
Hematology
Procedures:�
None
Clinical course:�
This is a 59-year-old female with past medical history as stated above, who presented with shortness of breath, ongoing intermittently for 2 weeks.
Problem 1:
Shortness of breath with acute hypoxic respiratory insufficiency due to COPD exacerbation.
Her CT chest noted centrilobular emphysema.
Of note, she lives in a trailer and does not have air conditioning set up yet.
She was supported with oxygen via nasal cannula during her hospital stay, and this was weaned back to room air with an acceptable ambulatory walking pulse ox (90%) prior to discharge.
She can continue with prednisone slow taper outpatient.
She did receive empiric levofloxacin for 6 days while in the hospital, and given her procalcitonin was negative, no further antibiotic was continued.
Problem 2:
Hyponatremia secondary to high free water intake and SIADH.
She initially received hypertonic saline, and this was followed by fluid restriction and oral Lasix 20 mg daily which she can continue going forward.
Her sodium level improved from 118 on admission to 128 on the day of discharge.
Problem 3:
Polycythemia.
Her Erythropoietin level was low indicating primary polycythemia.
Baby aspirin was started which she can continue going forward per hematology.
Problem 4:
Mild hyperkalemia with potassium level at 5.2.
Her prior to admission lisinopril was discontinued. Her blood pressure is stable on prior to admission Cardizem to 40 mg daily alone.
As for the rest of her medical problems, they were stable during her hospital stay.
Discharge Plan
-
Patient Disposition: Home (Routine Discharge)
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
Condition: Fair
Diet: As tolerated, Low Fat, Low Cholesterol and Restrict fluids to 48 oz
Activity: As tolerated
Driving Restrictions: As prior to admission
Activity Restrictions/Additional Instructions:
Follow up with heme for your Polycythemia work up
Referrals:
Nikhil Maher MD [Family Provider] - in less than 1 week
Darryl Michelle MD [Active] -
(or PANTOGRAPH I ENGRAVER
PFTs,. 6 minute walk test, yearly low-dose lung cancer screening CT, and possible sleep study
)
Additional Discharge Medication Instructions: Continue prednisone taper as instructed.
Continue Lasix 20 mg daily (for your hyponatremia)
Continue ASA for your Polycythemia
Your lisinopril was stopped due to hyperkalemia
Prescriptions:
New
aspirin 81 mg Tablet,Delayed Release (Dr/Ec)
81 mg PO DAILY Qty: 30 0RF
furosemide 20 mg Tablet
20 mg PO DAILY Qty: 30 0RF
prednisone 10 mg Tablet
See Rx Instructions .ROUTE .COMPLEX Qty: 45 0RF
Rx Instructions:
Take By Mouth:
50 mg daily x3 days, 40 mg daily x3 days,
30 mg daily x3 days, 20 mg daily x3 days,
10 mg daily x3 days
Continued
albuterol sulfate 1 PUFF HFA aerosol inhaler
2 puff inhalation R Q4HPRN PRN (Reason: sob)
diltiazem HCl 240 MG capsule,extended release 24hr
240 mg PO DAILY Qty: 30 0RF
cetirizine [Zyrtec] 10 mg Tablet
10 mg PO DAILY
cetirizine [Zyrtec] 10 mg Tablet
10 mg PO HS PRN (Reason: allergies)
Trelegy Ellipta 200-62.5-25 mcg Blister With Device
1 inh INHALATION R DAILY
guaifenesin [Mucus Relief ER] 600 MG tablet extended release 12hr
600 mg PO BID
Discontinued
lisinopril 10 MG tablet
10 mg PO DAILY
Discharge Orders:
Discharge Patient (As Directed); Ordered 04/05/24
Ordered By: Katelynn Cooper
Discharge Date and Time
Discharge Date/Time: 04/05/24 11:45
Print Language: URDU
== END 2024-04-05 11:45 | disposition home or self-care (01) | DRG 191 ==
LOC: 3 WEST ACU 23:51
PROVIDERS: Hospitalist; Physician Assistant; Registered Nurse; Specialist; ADMITTING PHYSICIAN Hospitalist; ATTENDING PHYSICIAN Internal Medicine; CONSULT PHYSICIAN Internal Medicine Critical Care Medicine; CONSULT PHYSICIAN Internal Medicine Hematology & Oncology; EMERGENCY PHYSICIAN Emergency Medicine; FAMILY PHYSICIAN Family Medicine; OTHER PHYSICIAN Internal Medicine
DX: J44.1 Chronic obstructive pulmonary disease with (acute) exacerbation (principal); E22.2 Syndrome of inappropriate secretion of antidiuretic hormone; J45.901 Unspecified asthma with (acute) exacerbation; I11.0 Hypertensive heart disease with heart failure; I50.9 Heart failure, unspecified; J43.2 Centrilobular emphysema; E66.9 Obesity, unspecified; Z68.31 Body mass index [BMI] 31.0-31.9, adult; R06.89 Other abnormalities of breathing; R06.02 Shortness of breath; I48.0 Paroxysmal atrial fibrillation; D75.1 Secondary polycythemia; E87.5 Hyperkalemia; R91.1 Solitary pulmonary nodule; R73.9 Hyperglycemia, unspecified; Z79.899 Other long term (current) drug therapy; Z87.891 Personal history of nicotine dependence; Z87.01 Personal history of pneumonia (recurrent); Z86.79 Personal history of other diseases of the circulatory system
CPT/HCPCS: 71046; 71275; 80048; 81003; 81270; 82668; 83036; 83880; 83930; 83935; 84132; 84145; 84295; 84300; 84443; 84484; 85025; 85379; 87205; 87811; 93005; 93306; 94010; 94640; 96365; 99291; Q9967

== ENCOUNTER → 2025-01-28 09:02 | Outpatient (REF) | payer OTHER, SELFPAY | LOC: WDC 09:02 | PROVIDERS: ATTENDING PHYSICIAN Family Medicine | DX: N63.0 Unspecified lump in unspecified breast (principal); N63.14 Unspecified lump in the right breast, lower inner quadrant | CPT/HCPCS: 76642; 77062; 77066 ==

== ENCOUNTER → 2025-02-12 13:49 | Outpatient (REF) | payer OTHER, SELFPAY | LOC: MRI 3T 13:49 | PROVIDERS: ATTENDING PHYSICIAN Family Medicine | DX: R92.8 Other abnormal and inconclusive findings on diagnostic imaging of breast (principal) | CPT/HCPCS: 77049; A9585 ==

== ENCOUNTER → 2025-02-18 14:52 | Outpatient (REF) | payer OTHER, SELFPAY | LOC: WDC 14:52 | PROVIDERS: ATTENDING PHYSICIAN Family Medicine | DX: R92.8 Other abnormal and inconclusive findings on diagnostic imaging of breast (principal) | CPT/HCPCS: 76642 ==

== ENCOUNTER → 2025-02-26 07:55 | Outpatient (REF) | payer OTHER, SELFPAY ==
--- NOTE | 2025-02-26 15:07 | OID.BR.INTR ---
[facility] Breast Navigator - Initial
- -
Date of Contact: 02/26/25
Met with patient. Patient given written information on navigator service available at [facility]. Will follow up as needed per protocol.
== END ==
LOC: WDC 07:55
PROVIDERS: ATTENDING PHYSICIAN Family Medicine
DX: N63.21 Unspecified lump in the left breast, upper outer quadrant (principal)
CPT/HCPCS: 88305; 19083; 19084; A4648

== ENCOUNTER → 2025-04-07 10:23 | Outpatient (REF) | payer OTHER, SELFPAY | LOC: WDC 10:23 | PROVIDERS: ATTENDING PHYSICIAN Surgery | DX: N60.99 Unspecified benign mammary dysplasia of unspecified breast (principal) | CPT/HCPCS: 19285; A4648 ==

== ENCOUNTER 2025-04-09 06:13 | Day surgery (SDC) | payer OTHER, SELFPAY ==
[2025-03-30 11:37] LABS: Hemoglobin 15.4 g/dL (12.0-16.0); Mean Corp Hgb Conc. 33.5 g/dL (33.0-37.0); Mean Corpuscular Hgb 31.8 pg (27.0-31.0); Mean Corpuscular Volume 94.8 fL (81.0-99.0); Mean Platelet Volume 9.7 fL (7.4-10.4); Platelet Count 388 10^3/uL (130-400); Red Blood Cell Count 4.85 10^6/uL (4.20-5.40); Red Cell Dist. Width 15.5 % (11.5-14.5)
[2025-03-30 11:42] LABS: ALT (SGPT) 18 U/L (0-35); AST (SGOT) 22 U/L (14-36); Albumin 4.6 g/dl (3.5-5.0); Alkaline Phosphatase 108 U/L (38-126); Blood Urea Nitrogen 9 mg/dl (7-17); Calcium 9.2 mg/dl (8.4-10.2); Carbon Dioxide 27 mmol/L (22-30); Chloride 102 mmol/L (98-107); Glucose 96 mg/dl (70-99); Potassium 4.5 mmol/L (3.5-5.1); Sodium 137 mmol/L (135-145); Total Bilirubin 0.6 mg/dl (0.2-1.3); eGFR > 60.00
[2025-03-30 11:48] LABS: Prealbumin (Transthyretin) 20.2 mg/dl (17.6-36.0)
[2025-03-30 12:02] LABS: Vitamin D, 25-OH*** 25.8 ng/mL (30-80)
[2025-03-30 14:08] VITALS: BMI 25.8
--- NOTE | 2025-03-30 14:21 | PTCARENOTE ---
Abnormal ECG done 03/30/[address] Benson, no further intervention requested.
[2025-04-09] VITALS (8 sets, daily range): BP systolic 85–123; BP diastolic 52–85; BMI 25.8
[2025-04-09] MEDS: TYLENOL 1000 MG PO (13:22)
[2025-04-09] MEDS: NORMOSOL-R/PLASMALYTE-A 1000 IV (13:23)
--- NOTE | 2025-04-09 15:49 | W.IMMPOSTOP ---
Surgical Immed Post Op Note
-
Primary Surgeon: Alva
Assisting Surgeon: None
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
Post-op Diagnosis: Same
Procedure Performed: Left localized lumpectomy and oncoplastic mastoplasty
Anesthesia Type: LMA general
Specimen / Cultures: Left lumpectomy x 2, same incision
Estimated Blood Loss: 4cc
Complications: None
Operative Findings: Both clips and reflectors in specimen
--- NOTE | 2025-04-09 15:53 | OR.RPT ---
Operative Report
Operative Report
Date of surgery: 04/09/2025
Surgeon: Alva
Pre-op diagnosis atypical ductal hyperplasia left breast
: Postop diagnosis: Same
Procedure: Left localized lumpectomy x 2, same incision, and oncoplastic mastoplasty
The patient is a 60-year-old female with image detected changes of the left breast. She underwent biopsy of 2 areas showing atypical ductal hyperplasia and presents for localized lumpectomy. On the day prior to the procedure the patient presented
to the breast imaging center where [address] openings inspector reflectors were placed at the biopsy sites. The more medial reflector was displaced 2 cm medial to the biopsy site and was also located anterior to it.
On the day of the procedure the patient presented to same-day surgical services where she was prepped. DVT and antibiotic prophylaxis were provided and she was taken to the operating room. In the supine position LMA general anesthesia was induced.
The left breast was prepped and draped in the usual sterile fashion and all team members performed an appropriate timeout.
Tissues were anesthetized with 1% lidocaine plain and a curvilinear incision was made in between the 2 areas to be resected. Skin flaps were elevated in the oncoplastic plane and using the Shanda probe, a wide lumpectomy was performed incorporating
resection of both sites in 1 specimen. Time out of body was noted and specimen radiography confirmed the presence of both clips and both reflectors within it. This left a resulting defect of 6 x 6 cm. Therefore, in an oncoplastic fashion, the
oncoplastic plane was elevated 360 degrees. A separate parenchymal incision was made to advance tissue. Hemostasis was verified and Marcaine 0.5% plain was instilled. A portion of Surgicel was passed in the resection bed. The wound was closed in
multiple layers using simple interrupted 3-0 plain on deep, intermediate, and subcutaneous tissue and skin was closed with a running subcuticular 4 Monocryl and a few simple ruptured Monocryls. Surgical glue and sterile compressive dressings were
applied.
All sponge needle and instrument counts were correct and the patient was transferred to the recovery room in stable condition.
[id number]
== END 2025-04-09 17:08 | disposition home or self-care (01) ==
LOC: SDS 06:13
PROVIDERS: ATTENDING PHYSICIAN Surgery; FAMILY PHYSICIAN Family Medicine
DX: D05.12 Intraductal carcinoma in situ of left breast (principal); D24.9 Benign neoplasm of unspecified breast; N60.12 Diffuse cystic mastopathy of left breast; Z17.0 Estrogen receptor positive status [ER+]
CPT/HCPCS: 19301; 88307; 36415; 76098; 80053; 82306; 84134; 85027; 88360; 93005

== ENCOUNTER → 2025-06-01 08:08 | Outpatient (REF) | payer OTHER, SELFPAY | LOC: WOUND 08:08 | PROVIDERS: ATTENDING PHYSICIAN Surgery; FAMILY PHYSICIAN Family Medicine | DX: S21.002A Unspecified open wound of left breast, initial encounter (principal); C50.912 Malignant neoplasm of unspecified site of left female breast; I48.0 Paroxysmal atrial fibrillation; I50.813 Acute on chronic right heart failure; I48.91 Unspecified atrial fibrillation; X58.XXXA Exposure to other specified factors, initial encounter | CPT/HCPCS: 11042; 99204 ==

== ENCOUNTER → 2025-06-08 09:00 | Outpatient (REF) | payer OTHER, SELFPAY | LOC: WOUND 09:00 | PROVIDERS: ATTENDING PHYSICIAN Surgery; FAMILY PHYSICIAN Family Medicine | DX: S21.002A Unspecified open wound of left breast, initial encounter (principal); C50.912 Malignant neoplasm of unspecified site of left female breast; I48.0 Paroxysmal atrial fibrillation; I50.813 Acute on chronic right heart failure; I48.91 Unspecified atrial fibrillation; Y83.8 Other surgical procedures as the cause of abnormal reaction of the patient, or of later complication, without mention of misadventure at the time of the procedure | CPT/HCPCS: 11042 ==

== ENCOUNTER → 2025-06-17 09:12 | Outpatient (REF) | payer OTHER, SELFPAY | LOC: WOUND 09:12 | PROVIDERS: ATTENDING PHYSICIAN Surgery | DX: S21.002A Unspecified open wound of left breast, initial encounter (principal); C50.912 Malignant neoplasm of unspecified site of left female breast; I48.0 Paroxysmal atrial fibrillation; I50.813 Acute on chronic right heart failure; I48.91 Unspecified atrial fibrillation; X58.XXXA Exposure to other specified factors, initial encounter | CPT/HCPCS: 11042 ==

== ENCOUNTER → 2025-07-05 09:54 | Outpatient (REF) | payer OTHER, SELFPAY | LOC: WOUND 09:54 | PROVIDERS: ATTENDING PHYSICIAN Surgery; FAMILY PHYSICIAN Family Medicine | DX: S21.002A Unspecified open wound of left breast, initial encounter (principal); C50.912 Malignant neoplasm of unspecified site of left female breast; I48.0 Paroxysmal atrial fibrillation; I50.813 Acute on chronic right heart failure; I48.91 Unspecified atrial fibrillation; Y84.8 Other medical procedures as the cause of abnormal reaction of the patient, or of later complication, without mention of misadventure at the time of the procedure | CPT/HCPCS: 11042 ==

== ENCOUNTER → 2025-07-12 10:34 | Outpatient (REF) | payer OTHER, SELFPAY | LOC: WOUND 10:34 | PROVIDERS: ATTENDING PHYSICIAN Surgery; FAMILY PHYSICIAN Family Medicine | DX: S21.002A Unspecified open wound of left breast, initial encounter (principal); C50.912 Malignant neoplasm of unspecified site of left female breast; I48.0 Paroxysmal atrial fibrillation; I50.813 Acute on chronic right heart failure; I48.91 Unspecified atrial fibrillation; Y84.8 Other medical procedures as the cause of abnormal reaction of the patient, or of later complication, without mention of misadventure at the time of the procedure | CPT/HCPCS: 99213 ==

== ENCOUNTER → 2025-07-19 09:20 | Outpatient (REF) | payer OTHER, SELFPAY | LOC: WOUND 09:20 | PROVIDERS: ATTENDING PHYSICIAN Surgery; FAMILY PHYSICIAN Family Medicine | DX: S21.002A Unspecified open wound of left breast, initial encounter (principal); C50.912 Malignant neoplasm of unspecified site of left female breast; I48.0 Paroxysmal atrial fibrillation; I50.813 Acute on chronic right heart failure; I48.91 Unspecified atrial fibrillation; Y84.8 Other medical procedures as the cause of abnormal reaction of the patient, or of later complication, without mention of misadventure at the time of the procedure | CPT/HCPCS: 99213 ==

== ENCOUNTER 2025-07-27 11:11 | Inpatient (IN) | payer OTHER, SELFPAY ==
[2025-07-16 09:01] LABS: Hematocrit 50.0 % (37.0-47.0); Hemoglobin 17.3 g/dL (12.0-16.0); Mean Corp Hgb Conc. 34.6 g/dL (33.0-37.0); Mean Corpuscular Volume 94.7 fL (81.0-99.0); Nucleated Red Blood Cells % 0 %; Platelet Count 359 10^3/uL (130-400); Red Cell Dist. Width 14.8 % (11.5-14.5)
[2025-07-16 09:29] LABS: ALT (SGPT) 16 U/L (0-35); AST (SGOT) 19 U/L (14-36); Albumin 4.6 g/dl (3.5-5.0); Alkaline Phosphatase 145 U/L (38-126); Blood Urea Nitrogen 7 mg/dl (7-17); Calcium 9.6 mg/dl (8.4-10.2); Carbon Dioxide 31 mmol/L (22-30); Chloride 95 mmol/L (98-107); Glucose 116 mg/dl (70-99); Potassium 4.5 mmol/L (3.5-5.1); Sodium 134 mmol/L (135-145); Total Protein 7.5 g/dl (6.3-8.2); eGFR > 60.00
[2025-07-16 09:36] LABS: Prealbumin (Transthyretin) 17.3 mg/dl (17.6-36.0)
[2025-07-16 09:49] LABS: Vitamin D, 25-OH*** 31.1 ng/mL (30-80)
[2025-07-16 14:06] VITALS: BMI 26.9
[2025-07-27] VITALS (13 sets, daily range): BP systolic 5–146; BP diastolic 49–71; BMI 26.9
[2025-07-27] MEDS: TYLENOL 1000 MG PO (11:50)
[2025-07-27] MEDS: NORMOSOL-R/PLASMALYTE-A 1000 IV (11:50)
[2025-07-27] MEDS: LOVENOX 40 MG SC (12:36)
[2025-07-27] MEDS: SUBLIMAZE 25 MCG IV (16:10)
[2025-07-27] MEDS: DUONEB INH (17:12)
[2025-07-27] MEDS: D5/0.45%NSS with KCL 20 MEQ 1000 IV (17:32)
--- NOTE | 2025-07-27 17:41 | PTCARENOTE ---
Pt arrived to 2S in bed. Full assessment completed. Small amount of drainage noted to L breast DSG, surgical bra maintained. L DREA drain sites C/D/I, sanguinous output noted. IVF infusing per order. Bed locked and in the lowest position, safety
maintained. Oriented to room and call masters.
[2025-07-27] MEDS: TYLENOL 500 MG PO (18:23)
[2025-07-27] MEDS: DUONEB 3 ML INH (20:27)
[2025-07-27] MEDS: SYMBICORT 160/4.5 MCG INHALER 2 PUFF INH (20:28)
[2025-07-27] MEDS: COLACE 100 MG PO (20:42)
[2025-07-28] VITALS (8 sets, daily range): BP systolic 102–140; BP diastolic 54–77
[2025-07-28] MEDS: NEURONTIN 100 MG PO ×2 (06:02→17:42)
[2025-07-28] MEDS: DUONEB 3 ML INH ×3 (07:21→19:42)
[2025-07-28] MEDS: SYMBICORT 160/4.5 MCG INHALER 2 PUFF INH ×2 (07:21→19:43)
[2025-07-28] MEDS: SPIRIVA RESPIMAT 2.5 MCG INH (07:27)
[2025-07-28] MEDS: NICODERM TRANSDERMAL 14 MG TRANSDERM (07:56)
[2025-07-28] MEDS: KEFLEX 500 MG PO ×2 (07:56→20:16)
[2025-07-28] MEDS: ZYRTEC 10 MG PO (07:57)
[2025-07-28] MEDS: COLACE 100 MG PO ×2 (07:57→20:16)
[2025-07-28] MEDS: ZOLOFT 50 MG PO (07:57)
[2025-07-28] MEDS: VITAMIN D3 (cholecalciferol) 50 MCG PO (07:57)
[2025-07-28] MEDS: PROTONIX 40 MG PO (07:57)
--- NOTE | 2025-07-28 08:56 | W.PN.UPDATE ---
Update Note
Progress Note Update
The patient is postop day #1 status post left simple mastectomy. Nursing reported 200 cc of drainage overnight from her 1 drain and the 100 this morning. She felt it was bloody. The patient is hemodynamically stable. She does have compromised
lung function with her COPD. Her O2 is decreased to 3 L. On exam she has a significant hematoma under her mastectomy flaps and will require return to the OR. She will be typed and screened for packed RBCs. Procedure, alternatives, risk (inherent
and unexpected), morbidity and mortality discussed with patient who verbalizes she understands and gives informed consent.
[2025-07-28] MEDS: LR 1000 IV (09:42)
--- NOTE | 2025-07-28 10:33 | CM ---
Reviewed chart. Met with pt bedside. Pt for surgery today for hematoma. Is currently on O2 and has home O2. Pt has all needed O2 supplies in her home. She doesn't remember the name. of her DME company. Pt inquiring about VN. [employer] HH
resources provided for the [facility].
Plan: Home with VN services and home O2
--- NOTE | 2025-07-28 14:17 | W.IMMPOSTOP ---
Surgical Immed Post Op Note
-
Primary Surgeon: Alva
Assisting Surgeon: None
Pre-op Diagnosis: Left breast DCIS
Post-op Diagnosis: Same
Procedure Performed: Evacuation and drainage hematoma left mastectomy site
Anesthesia Type: GET
Specimen / Cultures: None
Estimated Blood Loss: 20cc
Complications: None
Operative Findings: None
--- NOTE | 2025-07-28 14:18 | OR.RPT ---
Operative Report
Operative Report
Date of procedure: 07/28/2025
Surgeon: Alva
Procedure: evacuation and drainage left mastectomy hematoma
Preoperative diagnosis: Hematoma status post left mastectomy
Postoperative diagnosis: Hematoma status post left mastectomy
Patient is a 60-year-old female who had undergone a lumpectomy for DCIS of the left breast. She had significant wound healing complications was found to have much more severe COPD than recognized and had very slow wound healing. She had missed her
window of opportunity for radiation therapy or reexcision therefore she opted for simple mastectomy. This was performed on 07/27/2025 and overnight she developed increased bloody discharge and drainage. Was recognized that she had a large hematoma
and appeared to be actively bleeding and was prepped for the operating room. She provided informed consent.
She was taken to the operating room and in the supine position general anesthesia was induced with using crush technique and general endotracheal intubation. Left breast was prepped and draped in the usual sterile fashion. Appropriate timeout was
performed by all team members. [place] were removed from the skin and the incision was opened with the blade. Packs were placed and gelatinous hematoma was removed systematically through the various quadrants of the chest wall. No active bleeding
was noted. All oozing was cauterized. Wound was suctioned and again hemostasis was carefully maintained. No active bleeding points were noted. Some oozing fat was suture-ligated with 3-0 plain gut. A pexed block was performed using 0.25%
Marcaine 20 cc and Surgicel was placed over the entire chest wall. 219 Talib drains were replaced and sutured to the skin using 2-0 nylon. The wound was closed using simple interrupted 2-0 Vicryl and leah.
Sterile compressive dressing was applied. All sponge needle and instrument counts were correct and the patient was transferred to the recovery room in stable condition.
([id number])
[2025-07-28] MEDS: DUONEB INH (15:12)
--- NOTE | 2025-07-28 15:21 | CON.HOSP ---
Addendum entered and electronically signed by Taylor Benton MD 07/28/25 19:21:
This is an addendum to H&P written by Naya Lara on 07/28/2025. �Patient seen and examined independently with ALL PURPOSE CLERK.
60-year-old female past medical history of left breast DCIS, HFpEF, paroxysmal atrial fibrillation, COPD on 3 L home oxygen restarted a week ago, hypertension, anxiety, presenting with planned left breast mastectomy for DCIS. �She underwent
mastectomy yesterday complicated by hematoma today. �Hematoma was evacuated today. �Consult for medical management of hypoxemia.
She was placed on home oxygen a week ago by pulmonary for COPD. She has required oxygen for a year but was avoiding it because she needed to be off for her to maintain her job. But she lost the job so she restarted oxygen last week. Chronic
producutive cough and shortness of breath at baseline.�
Vital signs normal. �Patient on 4 L oxygen. �Labs not performed.
Patient with left breast DCIS status post left breast mastectomy yesterday with hematoma today postevacuation today. �Check CBC and BMP.� Patient with chronic COPD. Wean oxygen back to 3L with goal of 91% saturation.� Aspirin held. Dr. Calle
following.
Original Note:
Consultation
-
Date/Time Consultation Requested: 07/28/2025 1510
Date/Time Consultation Performed: 07/28/2025 1522
Requesting Provider: Dr. Moira Calle
Performing Provider: Nicole RAMSAY/Dr. Taylor Benton
Reason for Consultation: COPD requiring O2
Family Physician
-
Family Physician: Nikhil Maher
Chief Complaint
-
increased O2 need
History of Present Illness
Patient is a 60-year-old female with past medical history significant for HFpEF, paroxysmal atrial fibrillation, COPD, hypertension, anxiety, left breast ADH/papilloma, left breast DCIS and polycythemia who is status post left breast mastectomy and
status post evacuation of expanding hematoma to left breast on post op day 1. Patient reports that she started home O2 approximately 10 days ago under care of tabber Dr. Thania Burkett after a period of time of resistance. She states that
pulmonary has been recommending PRN home O2 for a good while, although she was reluctant as she wanted to continue working. She started utilizing O2 at home ordered as PRN but she used almost 100% of the time. She reports at home on room air she
normally has a SpO2 88-89%. Has required 3L at home to remain >92%. She denies any recent illness, fever, chills, sick contact or travel.
Medical History
Past Medical History
Past Medical History: Reports Other
Additional Past Medical History:
HFpEF
paroxysmal atrial fibrillation
COPD
hypertension
anxiety
left breast ADH/papilloma
left breast DCIS
polycythemia
Past Surgical History: Reports Other
Additional Past Surgical History:
left breast US guided biopsy 02/26/2025
left breast localized lumpectomy, possible oncoplastic closure 04/09/2025
left breast mastectomy 07/27/2025
left breast evacuation of expanding hematoma 07/28/2025
appendectomy
bilateral ACL repairs
left arm fracture repair
Social History
Tobacco: Former Smoker (quit within last week, approximate 40 pack year history )
Alcohol: Occasional
Drug: None
Family History
Family History: Other (Mother: Brain cancer; Father: pulmonary fibrosis; Brother: DM)
Allergies / Home Medications
Allergies reflects when Allergies were last updated in [facility].
Home Medications with original date entered in [facility]
Allergy/Medication List:
Allergies
Allergy/AdvReac Type Severity Reaction Status Date / Time
pollen extracts Allergy itchy Verified 07/27/25 11:25
eyes,congestion,etc.
Home Medications
albuterol sulfate 90 mcg/actuation aerosol inhaler 2 puff inhalation R Q4HPRN PRN sob 07/28/18
cetirizine 10 mg tablet (Zyrtec) 10 mg PO BID Allergies 03/26/24
fluticasone fur. 200 mcg-umeclid 62.5 mcg-vilant 25 mcg inhalat.powder (Trelegy Ellipta) 1 inh inhalation R DAILY Lung/Breathing Issues 03/26/24
guaifenesin 600 mg tablet, extended release 12 hr (Mucus Relief ER) 600 mg PO BID Cough 03/26/24
ergocalciferol (vitamin D2) 25,000 unit capsule 50,000 unit PO Q OTHER DAY Supplement 04/02/25
ipratropium 0.5 mg-albuterol 3 mg (2.5 mg base)/3 mL nebulization soln 3 ml inhalation QID PRN wheeze 04/02/25
Super C/D3/Zinc 1 tab PO DAILY Supplement 07/21/25
psyllium husk 1 tab PO BID Constipation 07/21/25
sertraline 50 mg tablet 100 mg PO QPM Depression 07/21/25
acetaminophen 500 mg tablet 1,000 mg PO Q6H PRN pain 07/27/25
furosemide 20 mg tablet 20 mg PO DAILY Fluid Retention/Swelling 07/27/25
trazodone 50 mg tablet 50 mg PO HS PRN sleep 07/27/25
aspirin 81 mg tablet,delayed release 81 mg PO DAILY Blood Clot Prevention/Tx 07/28/25
diltiazem HCl 240 mg capsule,extended release 24 hr 240 mg PO DAILY Blood Pressure 07/28/25
Review of Systems
-
History Source: Patient
Constitutional: Denies Fever or Chills
EENT: Denies Sore Throat
Respiratory: Denies Cough or Trouble Breathing
Cardiac: Denies Chest Pain, Diaphoresis, Palpitations or Syncope
Abdomen/GI: Denies Abdominal Pain, Nausea, Vomiting or Diarrhea
: Denies Dysuria, Frequency or Urgency
Musculoskeletal: Denies Joint Pain
Skin: Denies Rash
Neurological: Denies Dizzy or Weakness
Endocrine: Denies Polyuria or Polydipsia
Hematologic/Lymphatic: Denies Bleeding
Physical Exam
Vital Signs
Vital Signs
Temp Pulse Resp BP Pulse Ox
97.9 F 96 20 128/69 93
07/28/25 14:58 07/28/25 14:45 07/28/25 14:45 07/28/25 14:45 07/28/25 14:58
Physical Exam
General: Well Developed, Well Nourished, No Apparent Distress and Comfortable
HEENT: Normocephalic and Moist Mucous Membranes
Respiratory: Clear, Wheezes (mild left upper lobe expiratory ) and Non Labored Respirations; Negative Rales or Rhonchi
Cardiac: S1/S2 and Regular Rhythm; Negative Murmur, Rub or Peripheral Edema
Breast: Deferred by me
GI: Soft, Non Tender, Non Distended and Normal Bowel Sounds
Rectal: Deferred by Provider
Genito-urinary: No Costovertebral Tend
Musculoskeletal: No Clubbing, No Cyanosis and No Edema
Skin: Warm
Neuro: Awake, AO x 3, No Motor Deficits and Nonfocal/Grossly Intact
Hematologic/Lymphatic: No Lymphadenopathy
Psych: Calm and Intact Judgement
Laboratory Results
-
Laboratory Results
07/16/25 08:27
07/16/25 08:27
Total Bilirubin 0.7 mg/dl (0.2-1.3) 07/16/25 08:27
AST 19 U/L (14-36) 07/16/25 08:27
ALT 16 U/L (0-35) 07/16/25 08:27
Alkaline Phosphatase 145 U/L (38-126) H 07/16/25 08:27
Data Reviewed
-
Lab Data: Labs Reviewed
Impression / Plan
-
IMPRESSION/PLAN:
#left breast ADH/papilloma
#left breast DCIS
s/p lumpectomy, L mastectomy, L hematoma evacuation
- orders per Dr. Calle, breast surgeon
#COPD
- continue albuterol, cetirizine, guaifenesin, DuoNeb PRN and Trelegy Ellipta
- PRN O2, wean as tolerated
#nicotine dependency
recently quit, with approximate 40 pack year history
- encourage continued cessation
- nicotine patch daily
#HFpEF
ECHO (03/27/2024): Normal left ventricular size, wall thickness and systolic function. No regional wall motion abnormalities are seen. LV ejection fraction is 70% by Saini's method of discs.
Abnormal (paradoxical) septal motion consistent with right ventricular (RV) volume overload and/or elevated RV end-diastolic pressure.
Top normal right ventricular size. Normal right ventricular function.
No tricuspid regurgitation is seen. Right heart pressures could not be determined.
Normal pericardium without effusion.
- daily weights
- I & Os
- continue furosemide
#paroxysmal atrial fibrillation
- continue diltiazem
#hypertension
- continue furosemide
#anxiety
- continue sertraline and trazodone
#polycythemia
- continue aspirin
Code status: full code
[2025-07-28] MEDS: D5/0.45%NSS with KCL 20 MEQ 1000 IV (15:25)
--- NOTE | 2025-07-28 15:26 | PTCARENOTE ---
Pt returned to 2S in bed. L breast DSG with minimal drainage, incision C/D/I, ecchymosis noted, surgical bra maintained. DREA drain sites C/D/I. IVF infusing per order. Pt instructed to ring fo assistance getting OOB, verbalized understanding. Bed
locked and in the lowest position. Oriented to room and call masters, spouse at bedside.
[2025-07-28] MEDS: DILAUDID 0.5 MG IV (20:21)
[2025-07-28 21:19] LABS: Blood Urea Nitrogen 8 mg/dl (7-17); Calcium 8.3 mg/dl (8.4-10.2); Carbon Dioxide 32 mmol/L (22-30); Chloride 97 mmol/L (98-107); Estimated Creatinine Clearance 90 ml/min; Glucose 147 mg/dl (70-99); Potassium 4.8 mmol/L (3.5-5.1); Sodium 129 mmol/L (135-145); eGFR > 60.00
--- NOTE | 2025-07-28 22:05 | PTCARENOTE ---
Addendum entered by Karina Jarvis RN 07/28/25 23:31:
IV fluids discontinued at this time per CONVENTION MANAGER orders.
Original Note:
Pt sodium is 129 on pm labs. CONVENTION MANAGER notified. No new orders. Care ongoing.
[2025-07-28] MEDS: TYLENOL 500 MG PO (22:25)
[2025-07-28 23:24] LABS: Hematocrit 37.2 % (37.0-47.0); Hemoglobin 11.8 g/dL (12.0-16.0); Mean Corp Hgb Conc. 31.7 g/dL (33.0-37.0); Mean Corpuscular Volume 97.6 fL (81.0-99.0); Platelet Count 231 10^3/uL (130-400); Red Cell Dist. Width 15.3 % (11.5-14.5)
[2025-07-29 00:46] VITALS: BP 114/59
[2025-07-29] MEDS: DILAUDID 0.5 MG IV (02:13)
[2025-07-29 03:29] VITALS: BP 134/67
[2025-07-29 06:00] VITALS: BMI 27.6
[2025-07-29 06:44] LABS: Hematocrit 38.9 % (37.0-47.0); Hemoglobin 11.9 g/dL (12.0-16.0); Mean Corp Hgb Conc. 30.6 g/dL (33.0-37.0); Mean Corpuscular Volume 100.3 fL (81.0-99.0); Platelet Count 235 10^3/uL (130-400); Red Cell Dist. Width 15.4 % (11.5-14.5)
[2025-07-29 06:54] LABS: Blood Urea Nitrogen 8 mg/dl (7-17); Calcium 8.5 mg/dl (8.4-10.2); Carbon Dioxide 35 mmol/L (22-30); Chloride 99 mmol/L (98-107); Estimated Creatinine Clearance 91 ml/min; Glucose 97 mg/dl (70-99); Potassium 4.7 mmol/L (3.5-5.1); Sodium 134 mmol/L (135-145); eGFR > 60.00
[2025-07-29] MEDS: SYMBICORT 160/4.5 MCG INHALER 2 PUFF INH (07:10)
[2025-07-29] MEDS: SPIRIVA RESPIMAT 2.5 MCG 2 PUFF INH (07:10)
[2025-07-29] MEDS: DUONEB 3 ML INH (07:10)
--- NOTE | 2025-07-29 07:55 | W.PN.UPDATE ---
Update Note
Progress Note Update
the patient is POD #1 S/P evacuation of hematoma after left mastectomy for DCIS. She had pain overnight and realizes she needs to keep baseline meds up. No further evidence of bleeding. Pt counseled as to drain care and monitoring. Hbg 11.9 D/C to
home on 3L O2 and with VNA in place. Will see me in 1 week.
--- NOTE | 2025-07-29 08:05 | W.DS.TRANS ---
DC Summary - Curriculum Manager
-
Discharge Instructions:
Sleep Apnea Risk Low
Discharge Diagnosis/Procedures Left mastectomy; evacuation of left chest wall
hematoma
Diet No restrictions,Other diet
Additional Diets take protein shake daily; protein with every
meal
Activity No strenuous activity
Driving Restrictions No driving
Bathing Restrictions tomorrow
Other Services VN
Wound Care Strip drains and empty as needed. Record
drainage. Replace gauze daily and keep bra in
place.
Instructions:
Stand-Alone Forms:
Changes to Home Medications: Yes
Discharge Medications:
DC Medications w/original date entered in [employer]
albuterol sulfate 90 mcg/actuation aerosol inhaler 2 puff inhalation R Q4HPRN PRN sob 07/28/18
cetirizine 10 mg tablet (Zyrtec) 10 mg PO BID Allergies 03/26/24
fluticasone fur. 200 mcg-umeclid 62.5 mcg-vilant 25 mcg inhalat.powder (Trelegy Ellipta) 1 inh inhalation R DAILY Lung/Breathing Issues 03/26/24
guaifenesin 600 mg tablet, extended release 12 hr (Mucus Relief ER) 600 mg PO BID Cough 03/26/24
ergocalciferol (vitamin D2) 25,000 unit capsule 50,000 unit PO Q OTHER DAY Supplement 04/02/25
ipratropium 0.5 mg-albuterol 3 mg (2.5 mg base)/3 mL nebulization soln 3 ml inhalation QID PRN wheeze 04/02/25
Super C/D3/Zinc 1 tab PO DAILY Supplement 07/21/25
psyllium husk 1 tab PO BID Constipation 07/21/25
sertraline 50 mg tablet 100 mg PO QPM Depression 07/21/25
acetaminophen 500 mg tablet 1,000 mg PO Q6H PRN pain 07/27/25
furosemide 20 mg tablet 20 mg PO DAILY Fluid Retention/Swelling 07/27/25
trazodone 50 mg tablet 50 mg PO HS PRN sleep 07/27/25
aspirin 81 mg tablet,delayed release 81 mg PO DAILY Blood Clot Prevention/Tx 07/28/25
Held on 07/29/25. Instructions: Resume on 08/16/25.
diltiazem HCl 240 mg capsule,extended release 24 hr 240 mg PO DAILY Blood Pressure 07/28/25
acetaminophen 500 mg tablet (Tylenol Extra Strength) 500 mg PO Q4HPRN PRN mild pain #60 tabs 07/29/25
albuterol sulfate 90 mcg/actuation aerosol inhaler 2 puff inhalation R Q4HPRN PRN SOB #1 g 07/29/25
budesonide-formoterol HFA 160 mcg-4.5 mcg/actuation aerosol inhaler (Symbicort) 2 puff inhalation R BID #1 g 07/29/25
cephalexin 500 mg capsule 500 mg PO BID #60 caps 07/29/25
cetirizine 10 mg tablet 10 mg PO DAILY #30 tabs 07/29/25
cholecalciferol (vitamin D3) 50 mcg (2,000 unit) tablet 50 mcg PO DAILY #60 tabs 07/29/25
docusate sodium 100 mg capsule 100 mg PO BID #60 caps 07/29/25
gabapentin 100 mg capsule 100 mg PO Q8HPRN PRN pain>3/10 #30 caps 07/29/25
ipratropium 0.5 mg-albuterol 3 mg (2.5 mg base)/3 mL nebulization soln 3 ml inhalation R QID #30 mL 07/29/25
nicotine 14 mg/24 hr daily transdermal patch 14 mg transdermal DAILY #10 ea 07/29/25
sertraline 50 mg tablet 50 mg PO DAILY #60 tabs 07/29/25
trazodone 50 mg tablet 50 mg PO HSPRN PRN sleep #10 tabs 07/29/25
Home Medication Changes
Pending Results: Yes (pathology left breast)
Total time spent discharging patient (in min): 20
[2025-07-29 08:25] VITALS: BP 109/65
[2025-07-29] MEDS: NICODERM TRANSDERMAL 14 MG TRANSDERM (08:42)
[2025-07-29] MEDS: ZYRTEC 10 MG PO (08:42)
[2025-07-29] MEDS: KEFLEX 500 MG PO (08:42)
[2025-07-29] MEDS: COLACE 100 MG PO (08:42)
[2025-07-29] MEDS: ZOLOFT 50 MG PO (08:42)
[2025-07-29] MEDS: PROTONIX 40 MG PO (08:42)
[2025-07-29] MEDS: VITAMIN D3 (cholecalciferol) 50 MCG PO (08:42)
[2025-07-29] MEDS: CARDIZEM CD 240 MG PO (08:46)
[2025-07-29] MEDS: LASIX 20 MG PO (08:47)
[2025-07-29] MEDS: MUCINEX 600 MG PO (09:06)
--- NOTE | 2025-07-29 09:36 | W.PN.HOSP.TC ---
Today's Communication/Plan
-
monitor vitals
see plan
ok to dc from medicine standpoint
follow up with pulmonary outpatient
continue home o2
Assessment / Plan
Assessment / Plan
General: Well Developed, Well Nourished, No Apparent Distress and Comfortable
HEENT: Normocephalic and Moist Mucous Membranes
Respiratory: Clear, no wheeze
Cardiac: S1/S2 and Regular Rhythm; Negative Murmur, Rub or Peripheral Edema
GI: Soft, Non Tender, Non Distended and Normal Bowel Sounds
Genito-urinary: No Costovertebral Tend
Musculoskeletal: No Edema
Neuro: Awake, AO x 3, No Motor Deficits and Nonfocal/Grossly Intact
Psych: Calm and Intact Judgement
left breast ADH/papilloma
#left breast DCIS
s/p lumpectomy, L mastectomy, L hematoma evacuation
- orders per Dr. Lee, breast surgeon management per dr lee
for dc today with draina nd outpatient f/u
#COPD
not in acute exacerbation
Chronic respiratory failure on 3L continuos o2
- continue albuterol, cetirizine, guaifenesin, DuoNeb PRN and Trelegy Ellipta
- PRN O2, wean as tolerated
#nicotine dependency
recently quit, with approximate 40 pack year history
- encourage continued cessation
- nicotine patch daily
#HFpEF
ECHO (03/27/2024): Normal left ventricular size, wall thickness and systolic function. No regional wall motion abnormalities are seen. LV ejection fraction is 70% by Saini's method of discs.
Abnormal (paradoxical) septal motion consistent with right ventricular (RV) volume overload and/or elevated RV end-diastolic pressure.
Top normal right ventricular size. Normal right ventricular function.
No tricuspid regurgitation is seen. Right heart pressures could not be determined.
Normal pericardium without effusion.
- daily weights
- I & Os
- continue furosemide
#paroxysmal atrial fibrillation
- continue diltiazem
#hypertension
- continue furosemide
#anxiety
- continue sertraline and trazodone
#polycythemia
- continue aspirin
Code status: full code
Anticipated Discharge: Today
Subjective/Interval History
-
Date of Service: July 29, 2025
denies sob
Objective Data
-
Labs:
Laboratory Results
07/28/25 07/29/25
23:09 05:50
WBC 9.5 8.5
Hgb 11.8 L 11.9 L
Hct 37.2 38.9
Plt Count 231 235
Sodium 134 L
Potassium 4.7
Chloride 99
Carbon Dioxide 35 H
BUN 8
Creatinine 0.4 L
Glucose 97
Calcium 8.5
Vital Signs:
Vital Signs
Temp Pulse Resp BP Pulse Ox
99.2 F 113 16 109/65 97
07/29/25 08:25 07/29/25 08:47 07/29/25 08:25 07/29/25 08:47 07/29/25 08:25
I&O
07/28/25 07/29/25 07/30/25
06:59 06:59 06:59
Intake Total 2120 / 2120 1420 / 1420 780 / 780
Output Total 320 / 320 370 / 370
Balance 1800 / 1800 1050 / 1050 780 / 780
[2025-07-29] MEDS: TYLENOL 500 MG PO (11:09)
[2025-07-29] MEDS: NEURONTIN 100 MG PO (11:10)
[2025-07-29 11:20] VITALS: BP 137/64
--- NOTE | 2025-07-29 12:00 | CM ---
Patient has been medically cleared for discharge to home with [facility] for RN drain care services. Patient arranged for discharge home.
--- NOTE | 2025-07-30 12:59 | CM ---
Addendum entered by Julianna Mckeon 07/30/25 16:37:
[facility] will see patient saturday, Patient physician dr. Calle to see her saturday. Patient aware.
Addendum entered by Julianna Mckeon 07/30/25 16:07:
[facility] decline due to staffing, [facility] declined due to unable to see patient over weekend. additional referrals sent to [facility] and [facility] awaiting response.
Addendum entered by Julianna Mckeon 07/30/25 15:22:
Clinical information faxed to [facility]. [phone]/ call to [phone] [phone] VM left for patient.
Addendum entered by Julianna Mckeon 07/30/25 13:15:
Patient also declined by [facility], CM sent referral to [facility] and notified Dr. Calle office to assess needs.
Original Note:
Patient called and stated that she did not hear from [facility] and when CM checked all scripts it was declined due to lack of staff. CM sent referral to [facility] and await response. Patient and given phone number for [facility].
CM will continue to follow for discharge planning needs.
Plan; VN; [facility] pending acceptance
== END 2025-07-29 11:34 | disposition home health service (06) | DRG 582 ==
LOC: 2 SOUTH 11:11
PROVIDERS: Nurse Practitioner Family; ADMITTING PHYSICIAN Surgery; FAMILY PHYSICIAN Family Medicine; OTHER PHYSICIAN Hospitalist
PROC: 0HTU0ZZ Resection of Left Breast, Open Approach (ICD-10-PCS; 2025-07-27)
PROC: 0HC5XZZ Extirpation of Matter from Chest Skin, External Approach (ICD-10-PCS; 2025-07-28)
DX: D05.12 Intraductal carcinoma in situ of left breast (principal); I50.32 Chronic diastolic (congestive) heart failure; L76.22 Postprocedural hemorrhage of skin and subcutaneous tissue following other procedure; N64.89 Other specified disorders of breast; J44.9 Chronic obstructive pulmonary disease, unspecified; F17.200 Nicotine dependence, unspecified, uncomplicated; I11.0 Hypertensive heart disease with heart failure; I48.0 Paroxysmal atrial fibrillation; F41.9 Anxiety disorder, unspecified; D75.1 Secondary polycythemia; F32.A Depression, unspecified; Z90.12 Acquired absence of left breast and nipple; Z86.000 Personal history of in-situ neoplasm of breast; Z99.81 Dependence on supplemental oxygen
CPT/HCPCS: 36415; 71045; 71046; 80048; 80053; 82306; 84134; 85025; 85027; 86850; 86900; 86901; 88307; 94640; 99406; C1729; L8000

== ENCOUNTER → 2025-08-23 12:45 | Outpatient (REF) | payer OTHER, SELFPAY | LOC: WOUND 12:45 | PROVIDERS: ATTENDING PHYSICIAN Surgery; FAMILY PHYSICIAN Family Medicine | DX: T81.31XA Disruption of external operation (surgical) wound, not elsewhere classified, initial encounter (principal); S21.002A Unspecified open wound of left breast, initial encounter; C50.912 Malignant neoplasm of unspecified site of left female breast; I48.0 Paroxysmal atrial fibrillation; I50.813 Acute on chronic right heart failure; I48.91 Unspecified atrial fibrillation; Y83.8 Other surgical procedures as the cause of abnormal reaction of the patient, or of later complication, without mention of misadventure at the time of the procedure | CPT/HCPCS: 99213 ==

== ENCOUNTER 2025-08-25 18:57 | Inpatient (IN) | payer OTHER, SELFPAY ==
--- NOTE | 2025-08-25 19:04 | HPS.HSE ---
Addendum entered and electronically signed by Taylor Benton MD 08/25/25 20:45:
This is an addendum to the H&P written by Diane Corley on 08/25/2025. �Patient seen and examined independently with PA.
60-year-old female past medical history of DCIS of left breast status post lumpectomy on 04/09 complicated by poor wound healing status post left mastectomy on 07/27 complicated by hematoma with evacuation and drainage of left mastectomy hematoma on
07/28, paroxysmal atrial fibrillation, CHF, anxiety/depression, COPD, here for worsening left breast open wound with drainage noticed last week. �She has chills without fever. �She saw Dr. Calle in the office last week and had drain removed. �
She went to [facility] emergency room today and had wound culture and blood cultures performed and was started on vancomycin/cefepime. �She was transferred here to follow-up with Dr. Calle.
Follow-up cultures from [facility]. Continue vancomycin/zosyn. �Dr. Calle consulted.
Original Note:
Family Physician
-
Family Physician: Nikhil Maher
Chief Complaint
-
Wound Infection
History of Present Illness
Patient is a 60 y/o female past medical history of oxygen dependent COPD, paroxysmal atrial fibrillation and DCIS Left Breast who presents with left breast wound. Patient initially underwent left lumpectomy in March 2025. She had poor wound healing
and also was noted to have several positive margins on pathology. She underwent left mastectomy on July 27. She developed hematoma and required evacuation in the OR on July 28. Subsequently patient developed dehiscence. She was seen by
Dr. Calle in office on August 20 at which time her drain and most of the leah were removed. She was subsequently evaluation by Dr. Soto in the wound care center on August 23. Today patient was seen by her home care nurse who
expressed concerned about increased drainage from the wound and referred her to the emergency department for evaluation.
Patient initially presented to [facility] this afternoon where she underwent blood work and chest CT. Review of records show wound culture was also obtained. She initially received vancomycin and cefepime. As patient is well known to
Alva she was accepted in transfer to [facility] for continued care.
Medical History
Past Medical History
Past Medical History: Reports Other
Additional Past Medical History:
Chronic Hypoxic Respiratory Failure
COPD
Paroxysmal Atrial Fibrillation
Chronic HFpEF
Essential Hypertension
Anxiety
Polycythemia
DCIS Left Breast
Past Surgical History: Reports Other
Additional Past Surgical History:
Bilateral ACL Repair
Appendectomy
Left Lumpectomy -> Left Mastectomy
Social History
Tobacco: Former Smoker
Alcohol: Occasional
Drug: None
Employment: Employed
Family History
Family History: Not pertinent
Allergies / Home Medications
Allergies reflects when Allergies were last updated in [facility].
Home Medications with original date entered in [facility]
Allergy/Medication List:
Allergies
Allergy/AdvReac Type Severity Reaction Status Date / Time
pollen extracts Allergy itchy Verified 07/27/25 11:25
eyes,congestion,etc.
Home Medications
cetirizine 10 mg tablet (Zyrtec) 10 mg PO BID Allergies 03/26/24
fluticasone fur. 200 mcg-umeclid 62.5 mcg-vilant 25 mcg inhalat.powder (Trelegy Ellipta) 1 inh inhalation R DAILY Lung/Breathing Issues 03/26/24
guaifenesin 600 mg tablet, extended release 12 hr (Mucus Relief ER) 600 mg PO BID Cough 03/26/24
ipratropium 0.5 mg-albuterol 3 mg (2.5 mg base)/3 mL nebulization soln 3 ml inhalation QID PRN wheeze 04/02/25
Super C/D3/Zinc 1 tab PO DAILY Supplement 07/21/25
sertraline 50 mg tablet 100 mg PO QPM Depression 07/21/25
acetaminophen 500 mg tablet 1,000 mg PO Q6H PRN pain 07/27/25
furosemide 20 mg tablet 20 mg PO DAILY Fluid Retention/Swelling 07/27/25
diltiazem HCl 240 mg capsule,extended release 24 hr 240 mg PO DAILY Blood Pressure 07/28/25
albuterol sulfate 90 mcg/actuation aerosol inhaler 2 puff inhalation R Q4HPRN PRN SOB #1 g 07/29/25
cholecalciferol (vitamin D3) 50 mcg (2,000 unit) tablet 50 mcg PO DAILY #60 tabs 07/29/25
trazodone 50 mg tablet 50 mg PO HSPRN PRN sleep #10 tabs 07/29/25
aspirin 81 mg tablet 81 mg PO DAILY 08/25/25
gabapentin 100 mg capsule 100 mg PO TID 08/25/25
Review of Systems
-
A 12 point ROS was completed and negative except as noted: Yes
Constitutional: Denies Fever or Chills
Respiratory: Reports Cough; Denies Trouble Breathing
Cardiac: Denies Chest Pain
Abdomen/GI: Denies Abdominal Pain, Nausea or Vomiting
Physical Exam
Vital Signs
Selected Entries
08/25/25
19:16
Temp 98.5 F
Pulse 73
Resp Rate 18
Blood pressure 127/65
SaO2 97
Physical Exam
General: Comfortable and Conversant
HEENT: Anicteric and Moist mucous membranes
Respiratory: Rhonchi (Diffuse); No Non Labored Respirations
Cardiac: S1/S2 and Regular Rhythm
Breast: Other (Large open left breast wound with small amount of purulent drainage; Prior DREA drain site with apparent packing in place - I reviewed pictures from Dr. Soto's note from August 23 and wound appears much guide rail cleaner with slough at
present time)
GI: Soft and Non Tender
Rectal: Deferred by Provider
Musculoskeletal: No Clubbing, No Cyanosis and No Edema
Laboratory Results
-
WBC 11.9
Hgb 13.9
HCT 41.5
Plt 310
Na 135
K 4.4
Cl 96
CO2 29
BUN 12
Cr 0.4
[address]: Postoperative changes are noted from left mastectomy. Appears to be a large open wound and extends almost to the chest wall. Some associated skin thickening. No evidence of focal collection.
Data Reviewed
-
CT Scan: Report Reviewed by me
Lab Data: Labs Reviewed by me
Old Records: Reviewed
Impression/Plan
-
Left Breast Wound Dehiscence and possible wound infection
-Consult Breast Surgery
-Consult Wound Care
-Attempt to obtain result of wound culture obtained at [facility]
-Continue vancomycin and Zosyn
Chronic Hypoxic Respiratory Failure / COPD - No acute exacerbation
-Continue Trelegy, DuoNeb QID, and Mucinex
-Continue supplemental oxygen at 3L via nasal cannula
Nicotine Dependence
-Patient continue to smoke a few cigarettes per day - Encourage smoking cessation
-Continue nicotine patch
Paroxysmal Atrial Fibrillation
-Continue diltiazem
-Patient is not on anticoagulation as outpatient
Chronic HFpEF
-Continue Lasix
-Monitor Daily Weights
Anxiety
-Continue Zoloft and Trazodone
Polycythemia
-Continue Aspirin
DVT proph: Lovenox
Code Status: Full Code
[2025-08-25 19:16] VITALS: BP 127/65
[2025-08-25 19:20] VITALS: BMI 28.6
[2025-08-25] MEDS: ZYRTEC 10 MG PO (20:41)
[2025-08-25] MEDS: MUCINEX 600 MG PO (20:41)
[2025-08-25] MEDS: NEURONTIN 100 MG PO (21:59)
[2025-08-25] MEDS: DILAUDID 2 MG PO (22:28)
[2025-08-25 23:03] VITALS: BMI 28.6
[2025-08-25 23:05] VITALS: BP 95/50
[2025-08-25] MEDS: ZOSYN 50 IV (23:25)
--- NOTE | 2025-08-26 00:58 | PTCARENOTE ---
Patient states that she was ordered a sleep study test, but d/t recent surgery, was unable to schedule.
--- NOTE | 2025-08-26 01:00 | PTCARENOTE ---
Patient states that she was ordered a sleep study test by her MD but was unable to schedule d/t recent breast surgery.
[2025-08-26] MEDS: DESYREL 50 MG PO (03:44)
[2025-08-26] MEDS: ZOSYN 50 IV (05:32)
[2025-08-26 05:44] VITALS: BMI 28.8
[2025-08-26 07:16] LABS: Hematocrit 37.4 % (37.0-47.0); Hemoglobin 11.9 g/dL (12.0-16.0); Mean Corp Hgb Conc. 31.8 g/dL (33.0-37.0); Mean Corpuscular Volume 96.4 fL (81.0-99.0); Platelet Count 278 10^3/uL (130-400); Red Cell Dist. Width 15.0 % (11.5-14.5)
[2025-08-26 07:35] VITALS: BP 118/58
[2025-08-26 07:51] LABS: Blood Urea Nitrogen 10 mg/dl (7-17); Calcium 8.5 mg/dl (8.4-10.2); Carbon Dioxide 37 mmol/L (22-30); Chloride 96 mmol/L (98-107); Estimated Creatinine Clearance 90 ml/min; Glucose 102 mg/dl (70-99); Potassium 4.1 mmol/L (3.5-5.1); Sodium 132 mmol/L (135-145); eGFR > 60.00
[2025-08-26] MEDS: SPIRIVA RESPIMAT 2.5 MCG 2 PUFF INH (07:57)
[2025-08-26] MEDS: SYMBICORT 160/4.5 MCG INHALER 2 PUFF INH ×2 (07:57→19:23)
--- NOTE | 2025-08-26 08:57 | PHA.VAN.IN ---
Assessment
- Assessment
Renal Function: Appears similar to baseline
Concomitant Antimicrobials: piperacillin/tazobactam
AUC Dosing Plan
- Dosing Variables
Dosing Weight (kg): 69
Dosing CrCl (ml/min): 90
Vd coefficient (L/kg): 0.7
- Empiric Dosing
Initial / Loading Dose: Received at OSH prior to transfer
Maintenance Regimen: Vanc 1000mg Q12H - first dose now then 1800
Estimated AUC (mcg*h/mL): 544
Estimated Peak (mcg*h/mL): 33.8
Estimated Trough (mcg/ml): 14.1
Estimated Half Life (H): 8.8
- Monitoring
No levels ordered at this time: consider levels in next few days
Pharmacokinetics Vancomycin I
- -
Patient Age: 60
Patient Sex: Female
Vancomycin Day #: 1
Indication: Skin And Soft Tissue
Requesting Provider: Candy Enriquez
Pertinent Antimicrobial Allergies:
no pertinent antibiotic allergies
Height / Weight:
Height 5 ft 1 in
Actual Weight 69.127 kg
Pertinent Past Medical History: COPD (O2-dependent), DCIS L. breast
- Vital Signs / Lab Results
Temp Pulse Resp BP Pulse Ox
98.6 F 65 16 118/58 98
08/26/25 07:35 08/26/25 08:02 08/26/25 08:02 08/26/25 07:35 08/26/25 08:02
Lab Results - Hematology
08/26/25
06:50
WBC 7.9
Lab Results - Chemistry
08/26/25
06:50
BUN 10
Creatinine 0.5 L
Estimated Creat Clear 90
--- NOTE | 2025-08-26 10:40 | CM ---
Chart reviewed and spoke with patient and Wilbur at bedside
Was in for mastectomy 07/27-07/29 and discharged home with [facility]
Lives in a 2nd floor apartment with . [address] with ADLs.
DME home O2
supportive
PCP Dr. Nikhil Barakat
RX plan yes
Pharmacy [facility] [place]
HX of [facility] prior to admission
no hx of SNF
DCP is to go home with services?
CM will continue to follow up for any dcp needs
--- NOTE | 2025-08-26 10:42 | PTCARENOTE ---
Received phone call from Moira Rose PA-C from [facility], reporting preliminary blood culture results showing gram negative rods, psuedomonas. Information tiger texted to Dr. Cooper. Autorization to release medical records obtained from
patient, form faxed to [facility] fax #[phone].
[2025-08-26] MEDS: CARDIZEM CD PO (10:52)
--- NOTE | 2025-08-26 10:52 | WOUNDNOTE ---
LEFT BREAST WOUND, DREA SITE
[2025-08-26] MEDS: DILAUDID 2 MG PO (10:53)
[2025-08-26] MEDS: TYLENOL 1000 MG PO ×2 (10:53→20:11)
--- NOTE | 2025-08-26 10:53 | WOUNDNOTE ---
LEFT CHEST WALL WOUND
--- NOTE | 2025-08-26 10:53 | WOUNDNOTE ---
LEFT CHEST WALL WOUND
[2025-08-26] MEDS: VITAMIN D3 (cholecalciferol) 50 MCG PO (10:54)
[2025-08-26] MEDS: ASPIR LOW (ENTERIC COATED) 81 MG PO (10:54)
[2025-08-26] MEDS: NEURONTIN 100 MG PO ×3 (10:54→21:06)
[2025-08-26] MEDS: ZINC 50 MG PO (10:54)
[2025-08-26] MEDS: ZYRTEC 10 MG PO ×2 (10:54→20:02)
[2025-08-26] MEDS: LASIX 20 MG PO (10:54)
[2025-08-26] MEDS: NICODERM TRANSDERMAL 14 MG TRANSDERM (10:54)
[2025-08-26] MEDS: MUCINEX 600 MG PO ×2 (10:54→20:02)
[2025-08-26] MEDS: DAKIN'S SOLUTION 0.125% 1/4 STRENGTH 1 ML TOPICAL (10:55)
[2025-08-26] MEDS: VITAMIN C 500 MG PO (10:55)
--- NOTE | 2025-08-26 10:58 | WOUNDNOTE ---
WO RN note: Patient admitted with left breast wound, sepsis
See H&P for complete history.
PMH: COPD 02 dependent, A-fib. PMH DCIS of left breast status post lumpectomy on 04/09 complicated by poor wound healing status post left mastectomy on 07/27 complicated by hematoma with evacuation and drainage of left mastectomy hematoma on 07/28.
Patient has been following with Dr. Calle and at the [facility].
Wound Location and type/assessment: Patient admitted with infected left breast wound. Please see worklist for measurement and details. Pictures of wound sent to Dr. Calle who could not be present at time of wound assessment. Wound with purulent
drainage and circumdental undermining up to 9 cm at 12 oclock. Patient has been cleaning and packing with Dakins which continues to be appropriate. Patient now with + pneumococcal infection in blood. Heels and sacrum intact.
Appetite: Patient reports appetite has been improving.
Pressure redistribution devices in place: Versa Care with Accumax. Patient turns and ambulates.
Plan: Continue to Dakins packing BID. This scientific writer discussed smoking cessation with patient who said she is aware and is down to 2-3 cigarettes/day. Will confirm orders with hospitalist and update nurse. Updated care plan and will follow as needed.
Note to case management of equipment requested for discharge:
Recommend follow up at wound care center upon discharge.
--- NOTE | 2025-08-26 11:27 | CON.ID ---
Consultation
-
Date/Time Consultation Requested: 08/26/2025 1103
Date/Time Consultation Performed: 08/26/2025 1120
Requesting Provider: Dr. Calle
Performing Provider: Dr. Beaulieu
Reason for Consultation: Pseudomonas bacteremia
Chief Complaint / Past History
History of Present Illness
Desi Dexter is a 60-year-old female with a significant past medical history of DCIS of the left breast being evaluated at the request of Dr. Calle in regards to Pseudomonas bacteremia. History is obtained from chart review, along with patient
interview.
The patient was diagnosed with DCIS of the left breast via biopsy on 02/26/2025. On 04/09/2025 she underwent a left breast lumpectomy which was complicated by poor wound healing. Subsequently, she underwent a left mastectomy on 07/27/2025, which was
complicated by postop hematoma that ultimately required evacuation and drainage. She reports that approximately 2 weeks ago she saw Dr. Calle in follow-up and the drain was still in place at that time. Later in the week she again was seen in
follow-up and at this point the drain was nonfunctioning and was removed. She continued to have a wound in the breast area. She was seen in the [facility] earlier in this week and instructions for wound packing were given. The next day she was
followed by a visiting nurse who noted that she was not especially happy with the appearance of the wound and advised evaluation in a local ER. Yesterday she went to [facility] ER
She presented to [facility] yesterday and blood cultures were obtained. The patient was subsequently transferred back to [facility] where her breast surgeon is on staff. Today, blood cultures obtained yesterday are reportedly
positive for Pseudomonas, and Infectious Diseases is asked to comment upon further antibiotic management.
At present, the patient denies any fevers but notes ongoing chills. She notes ongoing pain in the left breast wound area, reportedly 5/10. She admits to cough and occasional congestion. She denies any abdominal pain.
Past History
Additional Past Medical History:
DCIS left breast
CHF
A-fib
Anxiety/depression
COPD
Additional Past Surgical History:
Left breast lumpectomy
Left breast mastectomy
Bilateral ACL repair
Appendectomy
Allergy History:
pollen extracts Allergy (Verified 07/27/25 11:25)
itchy eyes,congestion,etc.
Medications Reviewed: Yes
Current Antibiotics:
Vancomycin
Cefepime
Social History
Tobacco: Smoker (10/22 PPD)
Alcohol: Occasional
Drug: None
Personal:
Living: With Family
Employment: Disabled
Family History
Family History: Not Pertinent
Review of Systems
Vital Signs
Temp Pulse Resp BP Pulse Ox
98.6 F 65 16 106/49 98
08/26/25 07:35 08/26/25 08:02 08/26/25 08:02 08/26/25 10:52 08/26/25 08:02
Physical Exam
Physical Exam
Constitutional: No Acute Distress, Comfortable and Non-toxic
Head: Normocephalic
Eyes: Pupils Equal, Pupils Round, No Conjunctival Hemorrhage and Sclera Anicteric
Oral: No Thrush and No Ulcers
Cardiovascular: Regular Rate and S1/S2; Negative S3/S4
Pulmonary: Clear; Negative Wheezes, Rales or Rhonchi
Gastrointestinal: Soft, Non Tender, Non Distended and Normal Bowel Sounds
Extremities: Negative Edema, Cyanosis or Erythema
Skin: Warm and Dry; Negative Rash
Wound: Other (Left breast/anterior chest wound with packing in place. Little periwound erythema. No appreciable drainage.)
Neurological: Awake and Alert
Psychological: Calm
Lab / Diagnostic Study Results
08/26/25 06:50
08/26/25 06:50
Microbiology Results
Micro:
08/26/25 10:37 Blood Culture - Pending
Blood/Venous
08/25/25 22:27 MRSA Screen - Pending
Nose
Imaging:
07/27/2025 CXR (single view): no metallic radiopaque soft tissue foreign body seen within the patient proper. Numerous presumed skin leah are seen overlying the lower chest. Please see full dictation for additional detail.
Assessment / Plan
Reported Pseudomonas bacteremia from a OSH ([facility])
Chills
Chronic left breast wound
DCIS left breast
CHF
A-fib
Anxiety/depression
COPD
Polycythemia
Recommendations:
Discontinue vancomycin and Zosyn.
Transition to cefepime 1 gm IV q6 hours.
Repeat blood cultures are pending.
Records request to OSH in progress.
Monitor white count and temperature curve.
Local care to the breast wound area.
Further recommendations as additional data is returned.
Care Review
Plan reviewed with: Physician (Dr. Calle)
--- NOTE | 2025-08-26 11:41 | W.PN.HOSP.TC ---
Today's Communication/Plan
-
see A/P
Assessment / Plan
Assessment / Plan
HPI: 60 y/o female past medical history of oxygen dependent COPD, paroxysmal atrial fibrillation and DCIS Left Breast who presented with left breast wound. Patient initially underwent left lumpectomy in March 2025. She had poor wound healing and
also was noted to have several positive margins on pathology. She underwent left mastectomy on July 27. She developed hematoma and required evacuation in the OR on July 28. Subsequently patient developed dehiscence. She was seen by
Alva in office on August 20 at which time her drain and most of the leah were removed. She was subsequently evaluation by Dr. Soto in the wound care center on August 23. On DO08/25, patient was seen by her home care nurse who
expressed concerned about increased drainage from the wound and referred her to the emergency department for evaluation.
Patient initially presented to [facility] where she underwent blood work and chest CT. Review of records show wound culture was also obtained. She initially received vancomycin and cefepime. As patient is well known to Dr. Calle she was
accepted in transfer to [facility] for continued care.
A/P:
# Sepsis POA with Left Breast Wound Dehiscence and infection
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
OSH blood culture grew GNR, follow up for S/S
check repeat blood cultures here
Breast Surgery consulted
Wound Care consulted
Continue vancomycin and Zosyn
ID CS
# Chronic Hypoxic Respiratory Failure / COPD - No acute exacerbation
Continue Trelegy, DuoNeb QID, and Mucinex
Continue supplemental oxygen at 3L via nasal cannula
# Nicotine Dependence
Patient continue to smoke a few cigarettes per day - Encourage smoking cessation
Continue nicotine patch
# Paroxysmal Atrial Fibrillation
Continue diltiazem
Patient is not on anticoagulation as outpatient
# Chronic HFpEF
Continue Lasix
Monitor Daily Weights
# Anxiety
Continue Zoloft and Trazodone
# Polycythemia
Continue Aspirin
DVT proph: Lovenox
Code Status: Full Code
DW RN
Anticipated Discharge: > 48 hours
Subjective/Interval History
-
Date of Service: August 26, 2025
Objective Data
-
Labs:
Laboratory Results
08/26/25
06:50
WBC 7.9
Hgb 11.9 L
Hct 37.4
Plt Count 278
Sodium 132 L
Potassium 4.1
Chloride 96 L
Carbon Dioxide 37 H
BUN 10
Creatinine 0.5 L
Glucose 102 H
Calcium 8.5
Vital Signs:
Vital Signs
Temp Pulse Resp BP Pulse Ox
37.0 C 65 16 106/49 98
08/26/25 07:35 08/26/25 08:02 08/26/25 08:02 08/26/25 10:52 08/26/25 08:02
I&O
08/25/25 08/26/25 08/27/25
06:59 06:59 06:59
Intake Total 100 / 100
Balance 100 / 100
Review of Systems
-
History Source: Patient
All other systems: Reviewed and negative
Physical Exam
-
General: Well Developed, Well Nourished, Comfortable, Respiratory Distress (chronic) and Conversant
HEENT: Normocephalic, Atraumatic, Nose Appears Normal, Ears Appear Normal and Oxygen (chronic on 3L NC)
Respiratory: Clear to Auscultation and Non Labored Respirations; Negative Crackles or Accessory Resp Muscle Use
Cardiac: Regular Rhythm and S1/S2
GI: Soft, Nontender, Nondistended and Normal Bowel Sounds
Skin: Lesions (L breast wound, see wound care note )
Neuro: Awake, Alert, Oriented and AO x 3
Psych: Calm and Intact Judgement/Insight
Data Reviewed
-
Labs: Labs Reviewed by me
[2025-08-26] MEDS: VANCOCIN 200 IV (12:00)
[2025-08-26] MEDS: ZOSYN IV (12:14)
[2025-08-26 14:43] VITALS: BP 97/49
[2025-08-26] MEDS: STERILE WATER FOR INJECTION 10 ML IV ×2 (16:21→20:02)
[2025-08-26] MEDS: MAXIPIME 1000 MG IV ×2 (16:21→20:02)
[2025-08-26] MEDS: LOVENOX 40 MG SC (17:52)
[2025-08-26] MEDS: ZOLOFT 100 MG PO (17:52)
[2025-08-26 18:53] VITALS: BP 118/62
[2025-08-26] MEDS: DUONEB 3 ML INH (19:25)
[2025-08-26] MEDS: DILAUDID 1 MG PO (21:11)
[2025-08-26 23:00] VITALS: BP 129/61
[2025-08-27] MEDS: MAXIPIME 1000 MG IV ×4 (01:45→20:53)
[2025-08-27] MEDS: STERILE WATER FOR INJECTION 10 ML IV ×4 (01:46→20:53)
[2025-08-27 04:39] VITALS: BMI 28.6
[2025-08-27 06:21] LABS: Hematocrit 37.1 % (37.0-47.0); Hemoglobin 11.8 g/dL (12.0-16.0); Mean Corp Hgb Conc. 31.8 g/dL (33.0-37.0); Mean Corpuscular Volume 96.9 fL (81.0-99.0); Platelet Count 296 10^3/uL (130-400); Red Cell Dist. Width 15.1 % (11.5-14.5)
[2025-08-27 06:45] LABS: Blood Urea Nitrogen 10 mg/dl (7-17); Calcium 8.4 mg/dl (8.4-10.2); Carbon Dioxide 36 mmol/L (22-30); Chloride 100 mmol/L (98-107); Estimated Creatinine Clearance 90 ml/min; Glucose 114 mg/dl (70-99); Potassium 4.1 mmol/L (3.5-5.1); Sodium 137 mmol/L (135-145); eGFR > 60.00
[2025-08-27 07:57] VITALS: BP 133/65
--- NOTE | 2025-08-27 08:12 | PN.CDI ---
CDI
- -
CDI:
Physician Documentation Request
Admit Date: 08/25/25 18:[address] Cooper,
Sepsis without organ dysfunction is no longer used within our health system. These cases are now coded as the primary infection, not as sepsis.
[facility] is using an adapted version of the 2016 Third International Consensus Definitions for Sepsis and Septic Shock (Sepsis-3) where sepsis is defined as life threatening organ dysfunction caused by a deregulated host response to infection.
Please reference the official [facility] Sepsis Recognition Tool for further information, which is available on the Intranet under Infection Prevention.
Clinical Indicators Include:
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
Trend vital signs:
T Max 98.6
HR: 70-80s
RR: 16-18
SBP: 95-127
Labs on admission:
WBC: 7.9
Creatinine: 0.5
Platelets: 278
Based on your medical judgment, please review the documentation pertaining to Sepsis due to left breast wound infection and further clarify the clinical indicators and any organ dysfunction associated with the diagnosis, if applicable:
� Sepsis ruled out, left breast wound infection only.
� Sepsis due to left breast wound infection with organ dysfunction of
� Other
� Clinically Unable to Determine
Use of terms such as suspected, likely, concern for, or probable (associated with a specific diagnosis that is being evaluated, monitored, or treated as if it exists) are acceptable and can be coded in the inpatient setting when documented at the
time of discharge.
Please use your independent medical judgement in providing your response.
Thank you,
GÓMEZ Quan RN
CDI Specialist
available via tiger text
[2025-08-27] MEDS: LASIX 20 MG PO (08:25)
[2025-08-27] MEDS: ZINC 50 MG PO (08:25)
[2025-08-27] MEDS: CARDIZEM CD 240 MG PO (08:25)
[2025-08-27] MEDS: VITAMIN D3 (cholecalciferol) 50 MCG PO (08:25)
[2025-08-27] MEDS: ZYRTEC 10 MG PO ×2 (08:26→20:53)
[2025-08-27] MEDS: VITAMIN C 500 MG PO (08:26)
[2025-08-27] MEDS: NEURONTIN 100 MG PO ×3 (08:26→21:01)
[2025-08-27] MEDS: MUCINEX 600 MG PO ×2 (08:26→20:53)
[2025-08-27] MEDS: ASPIR LOW (ENTERIC COATED) 81 MG PO (08:26)
[2025-08-27] MEDS: NICODERM TRANSDERMAL 14 MG TRANSDERM (08:27)
[2025-08-27] MEDS: TYLENOL 1000 MG PO ×2 (08:38→16:01)
--- NOTE | 2025-08-27 09:21 | W.PN.HOSP.TC ---
Addendum entered and electronically signed by Katelynn Cooper MD 08/27/25 14:06:
# Sepsis ruled out, left breast wound infection and bacteremia only.
Original Note:
Today's Communication/Plan
-
see A/P
Assessment / Plan
Assessment / Plan
HPI: 60 y/o female past medical history of oxygen dependent COPD, paroxysmal atrial fibrillation and DCIS Left Breast who presented with left breast wound. Patient initially underwent left lumpectomy in March 2025. She had poor wound healing and
also was noted to have several positive margins on pathology. She underwent left mastectomy on July 27. She developed hematoma and required evacuation in the OR on July 28. Subsequently patient developed dehiscence. She was seen by
Alva in office on August 20 at which time her drain and most of the leah were removed. She was subsequently evaluation by Dr. Soto in the wound care center on August 23. On DOA 08/25, patient was seen by her home care nurse who
expressed concerned about increased drainage from the wound and referred her to the emergency department for evaluation.
Patient initially presented to [facility] where she underwent blood work and chest CT. Review of records show wound culture was also obtained. She initially received vancomycin and cefepime. As patient is well known to Dr. Calle she was
accepted in transfer to [facility] for continued care.
A/P:
# Sepsis POA with Left Breast Wound Dehiscence and infection
# Likely bacteremia DEMOLITION EXPERT at OSH
OSH blood culture grew GNR, follow up for S/S
follow repeat blood cultures here
Cont cefepime per ID
Breast Surgery, Wound Care, ID on board
# Chronic Hypoxic Respiratory Failure / COPD - No acute exacerbation
Continue Trelegy, DuoNeb QID, and Mucinex
Continue supplemental oxygen at 3L via nasal cannula
# Nicotine Dependence
Patient continue to smoke a few cigarettes per day - Encourage smoking cessation
Continue nicotine patch
# Paroxysmal Atrial Fibrillation
Continue diltiazem
Patient is not on anticoagulation as outpatient
# Chronic HFpEF
Continue Lasix
Monitor Daily Weights
# Anxiety
Continue Zoloft and Trazodone
# Polycythemia
Continue Aspirin
DVT proph: Lovenox
Code Status: Full Code
DW RN
Anticipated Discharge: 24 - 48 hours
Subjective/Interval History
-
Date of Service: August 27, 2025
Objective Data
-
Labs:
Laboratory Results
08/27/25
05:59
WBC 6.6
Hgb 11.8 L
Hct 37.1
Plt Count 296
Sodium 137
Potassium 4.1
Chloride 100
Carbon Dioxide 36 H
BUN 10
Creatinine 0.3 L
Glucose 114 H
Calcium 8.4
Vital Signs:
Vital Signs
Temp Pulse Resp BP Pulse Ox
36.9 C 77 16 133/65 96
08/27/25 07:57 08/27/25 08:25 08/27/25 07:57 08/27/25 08:25 08/27/25 07:57
I&O
08/26/25 08/27/25 08/28/25
06:59 06:59 06:59
Intake Total 100 / 100 730 / 730
Balance 100 / 100 730 / 730
Review of Systems
-
History Source: Patient
All other systems: Reviewed and negative
Physical Exam
-
General: Well Developed, Well Nourished, Comfortable, Respiratory Distress (chronic) and Conversant
HEENT: Normocephalic, Atraumatic, Nose Appears Normal, Ears Appear Normal and Oxygen (chronic on 3L NC)
Respiratory: Clear to Auscultation and Non Labored Respirations; Negative Crackles or Accessory Resp Muscle Use
Cardiac: Regular Rhythm and S1/S2
GI: Soft, Nontender, Nondistended and Normal Bowel Sounds
Skin: Lesions (L breast wound, see wound care note )
Neuro: Awake, Alert, Oriented and AO x 3
Psych: Calm and Intact Judgement/Insight
Data Reviewed
-
Labs: Labs Reviewed by me
[2025-08-27] MEDS: SPIRIVA RESPIMAT 2.5 MCG 2 PUFF INH (09:22)
[2025-08-27] MEDS: SYMBICORT 160/4.5 MCG INHALER 2 PUFF INH ×2 (09:22→17:50)
[2025-08-27] MEDS: DAKIN'S SOLUTION 0.125% 1/4 STRENGTH 20 ML TOPICAL (11:00)
--- NOTE | 2025-08-27 12:52 | W.PN.ID1 ---
Date of Service
Date of Service: August 27, 2025
Today's Communication
continue cefepime
Assessment / Plan
Reported Pseudomonas bacteremia from a OSH ([facility])
Chills
Chronic left breast wound
DCIS left breast
CHF
A-fib
Anxiety/depression
COPD
Polycythemia
Recommendations:
continue cefepime 1 gm IV q6 hours.
Repeat blood cultures no growth to date
Records request to OSH in progress; called and spoke with micro lab [phone]; sensitivities have not yet resulted
Monitor white count and temperature curve.
Local care to the breast wound area.
Further recommendations as additional data is returned.
Chief Complaint
-: Bacteremia
Subjective / Review of Systems
afebrile
bp stable
Vital Signs / Physical Exam
Vital Signs
Vital Signs
Temp Pulse Resp BP Pulse Ox
98.4 F 77 16 133/65 96
08/27/25 07:57 08/27/25 08:25 08/27/25 07:57 08/27/25 08:25 08/27/25 12:13
Physical Exam
Constitutional: No Acute Distress
Cardiovascular: Regular Rate and S1/S2; Negative Murmur or Rub
Pulmonary: Clear and Symmetric; Negative Wheezes or Rales
Gastrointestinal: Soft, Non Tender, Non Distended and Normal Bowel Sounds
Skin: Warm and Dry; Negative Rash or Jaundice
Wound: Other (several inches long with undermining, granulation tissue in the base, no purulence)
Objective Data
Lab Data
Lab Results
08/27/25 05:59
08/27/25 05:59
Estimated Creat Clear 90 ml/min 08/27/25 05:59
Most recent labs reviewed.
Micro Results:
08/26/25 11:25 Blood Culture - Preliminary
Blood/Venous No Growth in 24 hours- Final report to follow
08/26/25 10:37 Blood Culture - Preliminary
Blood/Venous No Growth in 24 hours- Final report to follow
08/25/25 22:27 MRSA Screen - Final
Nose No Methicillin Resistant Staphylococcus aureus isolated.
Imaging:
07/27/2025 CXR (single view): no metallic radiopaque soft tissue foreign body seen within the patient proper. Numerous presumed skin leah are seen overlying the lower chest. Please see full dictation for additional detail.
[2025-08-27] MEDS: DUONEB 3 ML INH (14:04)
[2025-08-27 16:08] VITALS: BP 122/55
--- NOTE | 2025-08-27 16:38 | CM ---
Discharge POC: Referral placed to [facility] for resumption of services.
[2025-08-27] MEDS: ZOLOFT 100 MG PO (18:05)
[2025-08-27] MEDS: LOVENOX 40 MG SC (18:05)
[2025-08-27] MEDS: DILAUDID 1 MG PO (18:11)
[2025-08-27 23:00] VITALS: BP 147/67
[2025-08-28] MEDS: STERILE WATER FOR INJECTION 10 ML IV ×4 (01:43→20:40)
[2025-08-28] MEDS: MAXIPIME 1000 MG IV ×4 (01:43→20:40)
[2025-08-28 06:00] VITALS: BMI 28.4
[2025-08-28 07:00] VITALS: BP 123/54
[2025-08-28] MEDS: SPIRIVA RESPIMAT 2.5 MCG 2 PUFF INH (07:34)
[2025-08-28] MEDS: SYMBICORT 160/4.5 MCG INHALER 2 PUFF INH ×2 (07:35→17:45)
[2025-08-28 08:15] LABS: Hematocrit 37.8 % (37.0-47.0); Hemoglobin 12.3 g/dL (12.0-16.0); Mean Corp Hgb Conc. 32.5 g/dL (33.0-37.0); Mean Corpuscular Volume 97.2 fL (81.0-99.0); Platelet Count 333 10^3/uL (130-400); Red Cell Dist. Width 15.2 % (11.5-14.5)
[2025-08-28 08:26] VITALS: BP 123/54
[2025-08-28] MEDS: NICODERM TRANSDERMAL 14 MG TRANSDERM (08:30)
[2025-08-28] MEDS: LASIX 20 MG PO (08:30)
[2025-08-28] MEDS: ZINC 50 MG PO (08:30)
[2025-08-28] MEDS: ZYRTEC 10 MG PO ×2 (08:30→20:39)
[2025-08-28] MEDS: ASPIR LOW (ENTERIC COATED) 81 MG PO (08:31)
[2025-08-28] MEDS: VITAMIN C 500 MG PO (08:31)
[2025-08-28] MEDS: NEURONTIN 100 MG PO ×3 (08:31→21:39)
[2025-08-28] MEDS: VITAMIN D3 (cholecalciferol) 50 MCG PO (08:31)
[2025-08-28] MEDS: MUCINEX 600 MG PO ×2 (08:31→20:39)
[2025-08-28] MEDS: CARDIZEM CD 240 MG PO (08:31)
[2025-08-28 08:44] LABS: Blood Urea Nitrogen 10 mg/dl (7-17); Calcium 9.0 mg/dl (8.4-10.2); Carbon Dioxide 37 mmol/L (22-30); Chloride 97 mmol/L (98-107); Estimated Creatinine Clearance 89 ml/min; Glucose 95 mg/dl (70-99); Potassium 4.9 mmol/L (3.5-5.1); Sodium 135 mmol/L (135-145); eGFR > 60.00
--- NOTE | 2025-08-28 09:39 | W.PN.UPDATE ---
Update Note
Progress Note Update
Patient continues to wait for final culture sensitivities to direct final antibiotic course. Continue with wound care. After discharge, she will continue to see Dr. Soto in our wound care center
who will direct her to me if needed.
[2025-08-28] MEDS: DAKIN'S SOLUTION 0.125% 1/4 STRENGTH 1 ML TOPICAL (11:40)
--- NOTE | 2025-08-28 14:18 | W.PN.ID1 ---
Date of Service
Date of Service: August 28, 2025
Today's Communication
At time of dc, can transition cefepime to cipro 500mg po bid through 09/08/25.
Assessment / Plan
Reported Pseudomonas bacteremia from a OSH ([facility])
Chills
Chronic left breast wound
DCIS left breast
CHF
A-fib
Anxiety/depression
COPD
Polycythemia
Recommendations:
Repeat blood cultures no growth to date
Records request to OSH in progress;
Called and spoke with [email or web address] lab [phone]. Pseudomonas in blood cx sensitive to cipro and pansensitive.
At time of dc, can transition cefepime to cipro 500mg po bid through 09/08/25.
Local care to the breast wound area.
Follow up at wound care center.
Chief Complaint
-: Bacteremia
Subjective / Review of Systems
Left breast wound 'jones'
Vital Signs / Physical Exam
Vital Signs
Vital Signs
Temp Pulse Resp BP Pulse Ox
98.1 F 80 16 123/54 94
08/28/25 07:00 08/28/25 07:40 08/28/25 07:40 08/28/25 07:00 08/28/25 07:40
Physical Exam
Constitutional: No Acute Distress
Cardiovascular: Regular Rate and S1/S2
Pulmonary: Clear
Gastrointestinal: Soft, Non Tender, Non Distended and Normal Bowel Sounds
Extremities: Negative Edema
Wound: Other (several inches long with undermining, granulation tissue in the base, no purulence- see wound photo)
Neurological: AO x 3
Objective Data
Lab Data
Lab Results
08/28/25 07:49
08/28/25 07:49
Estimated Creat Clear 89 ml/min 08/28/25 07:49
Most recent labs reviewed.
Micro Results:
08/26/25 11:25 Blood Culture - Preliminary
Blood/Venous No Growth in 48 hours- Final report to follow
08/26/25 10:37 Blood Culture - Preliminary
Blood/Venous No Growth in 48 hours- Final report to follow
08/25/25 22:27 MRSA Screen - Final
Nose No Methicillin Resistant Staphylococcus aureus isolated.
Imaging:
07/27/2025 CXR (single view): no metallic radiopaque soft tissue foreign body seen within the patient proper. Numerous presumed skin leah are seen overlying the lower chest. Please see full dictation for additional detail.
Care Review
Plan reviewed with: Physician (Dr. Calero)
[2025-08-28] MEDS: TYLENOL 1000 MG PO (14:33)
[2025-08-28 15:00] VITALS: BP 119/61
[2025-08-28 16:28] VITALS: BP 119/61
--- NOTE | 2025-08-28 16:47 | W.PN.HOSP.TC ---
Today's Communication/Plan
-
Plan to discharge in a.m. on oral antibiotics per ID
Assessment / Plan
Assessment / Plan
HPI: 60 y/o female past medical history of oxygen dependent COPD, paroxysmal atrial fibrillation and DCIS Left Breast who presented with left breast wound. Patient initially underwent left lumpectomy in March 2025. She had poor wound healing and
also was noted to have several positive margins on pathology. She underwent left mastectomy on July 27. She developed hematoma and required evacuation in the OR on July 28. Subsequently patient developed dehiscence. She was seen by
Alva in office on August 20 at which time her drain and most of the leah were removed. She was subsequently evaluation by Dr. Soto in the wound care center on August 23. On DOA 08/25, patient was seen by her home care nurse who
expressed concerned about increased drainage from the wound and referred her to the emergency department for evaluation.
Patient initially presented to [facility] where she underwent blood work and chest CT. Review of records show wound culture was also obtained. She initially received vancomycin and cefepime. As patient is well known to Dr. Calle she was
accepted in transfer to [facility] for continued care.
A/P:
# Sepsis POA with Left Breast Wound Dehiscence and infection
# Likely bacteremia BANK RECONCILIATOR at OSH
OSH blood culture grew Pseudomonas, pansensitive
follow repeat blood cultures here
Cont cefepime per ID, changed to oral Cipro on discharge. Discussed with ID
Breast Surgery, Wound Care, ID on board
# Chronic Hypoxic Respiratory Failure / COPD - No acute exacerbation
Continue Trelegy, DuoNeb QID, and Mucinex
Continue supplemental oxygen at 3L via nasal cannula
# Nicotine Dependence
Patient continue to smoke a few cigarettes per day - Encourage smoking cessation
Continue nicotine patch
# Paroxysmal Atrial Fibrillation
Continue diltiazem
Patient is not on anticoagulation as outpatient
# Chronic HFpEF
Continue Lasix
Monitor Daily Weights
# Anxiety
Continue Zoloft and Trazodone
# Polycythemia
Continue Aspirin
DVT proph: Lovenox
Code Status: Full Code
Anticipated Discharge: Within 24 hours
Subjective/Interval History
-
Date of Service: August 28, 2025
No acute issues overnight
Objective Data
-
Labs:
Laboratory Results
08/28/25
07:49
WBC 6.5
Hgb 12.3
Hct 37.8
Plt Count 333
Sodium 135
Potassium 4.9
Chloride 97 L
Carbon Dioxide 37 H
BUN 10
Creatinine 0.4 L
Glucose 95
Calcium 9.0
Vital Signs:
Vital Signs
Temp Pulse Resp BP Pulse Ox
98.6 F 80 16 119/61 95
08/28/25 15:00 08/28/25 15:00 08/28/25 15:00 08/28/25 15:00 08/28/25 15:00
I&O
08/27/25 08/28/25 08/29/25
06:59 06:59 06:59
Intake Total 730 / 730 960 / 960
Balance 730 / 730 960 / 960
Review of Systems
-
All other systems: Reviewed and negative
Data Reviewed
-
Labs: Labs Reviewed by me and Discussed with Physician
[2025-08-28] MEDS: ZOLOFT 100 MG PO (17:39)
[2025-08-28] MEDS: LOVENOX 40 MG SC (17:39)
[2025-08-28] MEDS: DILAUDID 1 MG PO (20:38)
[2025-08-28 23:00] VITALS: BP 129/65
[2025-08-29] MEDS: STERILE WATER FOR INJECTION 10 ML IV (01:58)
[2025-08-29] MEDS: MAXIPIME 1000 MG IV (01:58)
[2025-08-29] MEDS: TYLENOL 1000 MG PO ×2 (05:50→13:28)
[2025-08-29 06:00] VITALS: BMI 28.2
[2025-08-29] MEDS: SYMBICORT 160/4.5 MCG INHALER 2 PUFF INH (07:41)
[2025-08-29] MEDS: SPIRIVA RESPIMAT 2.5 MCG 2 PUFF INH (07:42)
[2025-08-29 08:06] VITALS: BP 115/63
--- NOTE | 2025-08-29 08:49 | W.PN.ID1 ---
Date of Service
Date of Service: August 29, 2025
Today's Communication
Transition cefepime to cipro 500mg po bid through 09/08/25.
DC home today.
Assessment / Plan
Reported Pseudomonas bacteremia from a OSH ([facility])
Chills
Chronic left breast wound
DCIS left breast
CHF
A-fib
Anxiety/depression
COPD
Polycythemia
Recommendations:
Repeat blood cultures no growth to date
Records request to OSH in progress;
I Called and spoke with [employer] [phone] on 08/28. . Pseudomonas in blood cx sensitive to cipro and pansensitive.
Transition cefepime to cipro 500mg po bid through 09/08/25.
Local care to the breast wound area.
Follow up at wound care center tomorrow at 9:00A.
Chief Complaint
-: Bacteremia
Subjective / Review of Systems
Feels well.
Vital Signs / Physical Exam
Vital Signs
Vital Signs
Temp Pulse Resp BP Pulse Ox
98.0 F 75 17 115/63 96
08/29/25 08:06 08/29/25 08:06 08/29/25 08:06 08/29/25 08:06 08/29/25 08:06
Physical Exam
Constitutional: No Acute Distress
Cardiovascular: Regular Rate and S1/S2
Pulmonary: Clear
Gastrointestinal: Soft, Non Tender, Non Distended and Normal Bowel Sounds
Extremities: Negative Edema
Wound: Other (Left breast wound with packing, lower > upper wound edge with carmona fribrinous slough)
Neurological: AO x 3
Objective Data
Lab Data
Lab Results
08/28/25 07:49
08/28/25 07:49
Estimated Creat Clear 89 ml/min 08/28/25 07:49
Most recent labs reviewed.
Micro Results:
08/26/25 11:25 Blood Culture - Preliminary
Blood/Venous No Growth in 48 hours- Final report to follow
08/26/25 10:37 Blood Culture - Preliminary
Blood/Venous No Growth in 48 hours- Final report to follow
08/25/25 22:27 MRSA Screen - Final
Nose No Methicillin Resistant Staphylococcus aureus isolated.
Imaging:
07/27/2025 CXR (single view): no metallic radiopaque soft tissue foreign body seen within the patient proper. Numerous presumed skin leah are seen overlying the lower chest. Please see full dictation for additional detail.
Care Review
Plan reviewed with: Nurse
[2025-08-29] MEDS: VITAMIN C 500 MG PO (09:46)
[2025-08-29] MEDS: MUCINEX 600 MG PO (09:46)
[2025-08-29] MEDS: ASPIR LOW (ENTERIC COATED) 81 MG PO (09:46)
[2025-08-29] MEDS: CIPRO 500 MG PO (09:46)
[2025-08-29] MEDS: ZYRTEC 10 MG PO (09:46)
[2025-08-29] MEDS: VITAMIN D3 (cholecalciferol) 50 MCG PO (09:46)
[2025-08-29] MEDS: LASIX 20 MG PO (09:47)
[2025-08-29] MEDS: CARDIZEM CD PO (09:47)
[2025-08-29] MEDS: DAKIN'S SOLUTION 0.125% 1/4 STRENGTH 1 ML TOPICAL (09:47)
[2025-08-29] MEDS: NEURONTIN 100 MG PO (09:47)
[2025-08-29] MEDS: NICODERM TRANSDERMAL 14 MG TRANSDERM (09:48)
[2025-08-29] MEDS: ZINC 50 MG PO (09:48)
[2025-08-29] MEDS: STERILE WATER FOR INJECTION IV (10:14)
[2025-08-29] MEDS: MAXIPIME IV (10:14)
--- NOTE | 2025-08-29 10:47 | W.DCSUMMARY ---
Discharge Summary
Discharge Data
Date of Admission: 08/25/25
Date of Discharge: 08/29/25
Total time spent discharging patient (in min): 31
-
Pending Results: No
Hospital Course
Attending physician on day of discharge:
Colette Calero MD
Discharge diagnosis:
Left breast wound dehiscence
Pseudomonas bacteremia
Secondary diagnoses:
COPD
A-fib
CHF
Consultations:
ID
Breast surgery
Procedures:
None
Hospital course:
60F with COPD, PAF, left breast cancer s/p mastectomy with poor wound healing/dehiscence, presented as transfer from OSH for wound dehiscence, infection. She was empirically treated with cefepime, OSH blood cultures grew pansensitive Pseudomonas,
[facility] inpatient blood cultures NGTD. She was seen by surgery, as well as ID, plan to manage with oral antibiotics at home, Cipro EOT 09/08/2025, as well as wound care and outpatient wound clinic. All of her chronic conditions were stable
Diagnostic Findings:
Microbiology
08/26/25 10:37 Blood Culture - Preliminary
Blood/Venous No Growth in 72 hours- Final report to follow
08/26/25 11:25 Blood Culture - Preliminary
Blood/Venous No Growth in 48 hours- Final report to follow
Physical exam on discharge:
Gen: NAD
HEENT: PERRLA, EOMI, MMM, neck supple
Cards: RRR, no M/G/R
Resp: Lungs +wheeze
GI: soft, NT/ND/NABS
MSK: No edema
Skin: Left chest open wound, dressing soiled, no active oozing or bleed. Small circular erythematous rash on R shoulder
Heme: No LAD
Psych: Calm
Neuro: AAOx3
Discharge disposition:
Home
Discharge Plan
-
Patient Disposition: Home (Routine Discharge)
Discharge Diagnosis/Procedures: Pseudomonas Bacteremia
Diet: Regular
Activity: As tolerated
Bathing Restrictions: OK to Shower
Activity Restrictions/Additional Instructions:
If taking antacid, iron, zinc, magnesium, aluminum, calcium, or sucralfate, take these products 6 hours before or 2 hours after ciprofloxacin. Monitor for tendinitis while on cipro.
Wound Care Instructions Clean with Dakins and pack with Dakins moistened gauze daily. Cover with 2 ABD and secure with tape. Change BID and PRN drainage.
Follow up at wound care center call for an appointment.
Referrals:
Moira Calle MD [Active, Surgical]
Nikhil Maher MD [Family Provider, Family Practice]
Prescriptions:
New
ciprofloxacin HCl 500 mg Tablet
500 mg PO BID 11 Days Qty: 22 0RF
Continued
cetirizine [Zyrtec] 10 mg Tablet
10 mg PO BID
Trelegy Ellipta 200-62.5-25 mcg Blister With Device
1 inh INHALATION R DAILY
guaifenesin [Mucus Relief ER] 600 MG tablet extended release 12hr
600 mg PO BID
ipratropium-albuterol 0.5 mg-3 mg(2.5 mg base)/3 mL Solution For Nebulization
3 ml INHALATION R QIDPRN PRN (Reason: wheeze)
sertraline 50 mg Tablet
100 mg PO QPM
acetaminophen 500 mg Tablet
1,000 mg PO Q6H PRN (Reason: pain)
furosemide 20 mg Tablet
20 mg PO DAILY
diltiazem HCl 240 MG capsule,extended release 24hr
240 mg PO DAILY
trazodone 50 mg Tablet
50 mg PO HSPRN PRN (Reason: sleep) Qty: 10 0RF
albuterol sulfate 90 mcg/actuation Hfa Aerosol Inhaler
2 puff inhalation R Q4HPRN PRN (Reason: SOB) Qty: 1 0RF
cholecalciferol (vitamin D3) 50 mcg (2,000 unit) Tablet
50 mcg PO DAILY Qty: 60 0RF
aspirin 81 mg Tablet
81 mg PO DAILY
gabapentin 100 mg capsule
100 mg PO TID
nicotine 14 mg/24 hr Patch 24 Hour
1 patch TRANSDERMAL DAILY
budesonide-formoterol [Symbicort] 160-4.5 mcg/actuation Hfa Aerosol Inhaler
2 inh INHALATION R DAILY
Discharge Orders:
Discharge Patient (As Directed); Ordered 08/29/25
Ordered By: Colette Calero
Discharge Date and Time
Print Language: ZIMBABWEAN
--- NOTE | 2025-08-29 11:18 | CM ---
patient seen at bedside
Discharge today
IMM n/a
Referral for KOURTNEY Bledsoe updated in [facility]
PLAN: Home with KOURTNEY Bledsoe
[facility]adi fax #: [phone]
[2025-08-29] MEDS: FLUZONE (6 mos+) 2025-2026 FORMULA 0.5 ML IM (13:32)
[2025-08-29 13:41] VITALS: BP 132/72
== END 2025-08-29 14:27 | disposition home health service (06) | DRG 920 ==
LOC: 3 WEST ACU 18:57
PROVIDERS: Internal Medicine; Physician Assistant Medical; ADMITTING PHYSICIAN Hospitalist; ATTENDING PHYSICIAN Internal Medicine; CONSULT PHYSICIAN Surgery; FAMILY PHYSICIAN Family Medicine; OTHER PHYSICIAN Internal Medicine Infectious Disease
PROC: 3E02340 Introduction of Influenza Vaccine into Muscle, Percutaneous Approach (ICD-10-PCS; 2025-08-29)
DX: T81.31XA Disruption of external operation (surgical) wound, not elsewhere classified, initial encounter (principal); I50.32 Chronic diastolic (congestive) heart failure; R78.81 Bacteremia; J96.11 Chronic respiratory failure with hypoxia; B96.5 Pseudomonas (aeruginosa) (mallei) (pseudomallei) as the cause of diseases classified elsewhere; J44.9 Chronic obstructive pulmonary disease, unspecified; I48.0 Paroxysmal atrial fibrillation; F32.A Depression, unspecified; F41.9 Anxiety disorder, unspecified; D75.1 Secondary polycythemia; Z86.000 Personal history of in-situ neoplasm of breast; F17.210 Nicotine dependence, cigarettes, uncomplicated; I11.0 Hypertensive heart disease with heart failure; Z79.51 Long term (current) use of inhaled steroids; Z79.899 Other long term (current) drug therapy; Z90.13 Acquired absence of bilateral breasts and nipples; Z99.81 Dependence on supplemental oxygen; Y83.6 Removal of other organ (partial) (total) as the cause of abnormal reaction of the patient, or of later complication, without mention of misadventure at the time of the procedure; Z23 Encounter for immunization
CPT/HCPCS: 80048; 85027; 87040; 87070; 94640; 99406

== ENCOUNTER → 2025-08-30 10:26 | Outpatient (REF) | payer OTHER, SELFPAY | LOC: WOUND 10:26 | PROVIDERS: ATTENDING PHYSICIAN Surgery; FAMILY PHYSICIAN Family Medicine | DX: T81.31XA Disruption of external operation (surgical) wound, not elsewhere classified, initial encounter (principal); Y83.8 Other surgical procedures as the cause of abnormal reaction of the patient, or of later complication, without mention of misadventure at the time of the procedure; C50.912 Malignant neoplasm of unspecified site of left female breast; I48.0 Paroxysmal atrial fibrillation; I50.813 Acute on chronic right heart failure; I48.91 Unspecified atrial fibrillation | CPT/HCPCS: 11042 ==

== ENCOUNTER 2025-09-13 07:41 | Outpatient (REF) | payer OTHER, SELFPAY | END 2025-09-13 23:59 | disposition home or self-care (01) | LOC: WOUND 07:41 | PROVIDERS: ATTENDING PHYSICIAN Surgery; FAMILY PHYSICIAN Family Medicine | DX: T81.31XA Disruption of external operation (surgical) wound, not elsewhere classified, initial encounter (principal); S21.002A Unspecified open wound of left breast, initial encounter; C50.912 Malignant neoplasm of unspecified site of left female breast; I48.0 Paroxysmal atrial fibrillation; I50.813 Acute on chronic right heart failure; I48.91 Unspecified atrial fibrillation; Y83.8 Other surgical procedures as the cause of abnormal reaction of the patient, or of later complication, without mention of misadventure at the time of the procedure; X58.XXXA Exposure to other specified factors, initial encounter | CPT/HCPCS: 99213 ==

== ENCOUNTER 2025-09-28 10:03 | Outpatient (REF) | payer OTHER, SELFPAY | END 2025-09-28 23:59 | disposition home or self-care (01) | LOC: WOUND 10:03 | PROVIDERS: ATTENDING PHYSICIAN Registered Nurse; FAMILY PHYSICIAN Family Medicine | DX: T81.31XA Disruption of external operation (surgical) wound, not elsewhere classified, initial encounter (principal); S21.002A Unspecified open wound of left breast, initial encounter; C50.912 Malignant neoplasm of unspecified site of left female breast; I48.0 Paroxysmal atrial fibrillation; I50.813 Acute on chronic right heart failure; I48.91 Unspecified atrial fibrillation; Y83.8 Other surgical procedures as the cause of abnormal reaction of the patient, or of later complication, without mention of misadventure at the time of the procedure; X58.XXXA Exposure to other specified factors, initial encounter | CPT/HCPCS: 97605; 99213 ==

== ENCOUNTER 2025-10-07 08:24 | Outpatient (REF) | payer OTHER, SELFPAY | END 2025-10-07 23:59 | disposition home or self-care (01) | LOC: WOUND 08:24 | PROVIDERS: ATTENDING PHYSICIAN Registered Nurse; FAMILY PHYSICIAN Family Medicine | DX: T81.31XA Disruption of external operation (surgical) wound, not elsewhere classified, initial encounter (principal); Y83.8 Other surgical procedures as the cause of abnormal reaction of the patient, or of later complication, without mention of misadventure at the time of the procedure; I48.0 Paroxysmal atrial fibrillation; I50.813 Acute on chronic right heart failure; I48.91 Unspecified atrial fibrillation; C50.912 Malignant neoplasm of unspecified site of left female breast; S21.002A Unspecified open wound of left breast, initial encounter | CPT/HCPCS: 99213 ==

== ENCOUNTER 2025-10-11 10:58 | Outpatient (REF) | payer OTHER, SELFPAY | END 2025-10-11 23:59 | disposition home or self-care (01) | LOC: WOUND 10:58 | PROVIDERS: ATTENDING PHYSICIAN Registered Nurse | DX: T81.31XA Disruption of external operation (surgical) wound, not elsewhere classified, initial encounter (principal); S21.002A Unspecified open wound of left breast, initial encounter; C50.912 Malignant neoplasm of unspecified site of left female breast; I48.0 Paroxysmal atrial fibrillation; I50.813 Acute on chronic right heart failure; I48.91 Unspecified atrial fibrillation; Y83.8 Other surgical procedures as the cause of abnormal reaction of the patient, or of later complication, without mention of misadventure at the time of the procedure; X58.XXXA Exposure to other specified factors, initial encounter | CPT/HCPCS: 99213 ==